=== PATIENT | female | born 1960 | race African-American/Black ===

== ENCOUNTER 2017-02-25 13:38 | Inpatient (IN) | payer MEDICAID ==
[~2017-02-25] VITALS: Ht 167.6 cm; Wt 49.0 kg
[~2017-02-25 13:38] MED LIST: ALBU90AE IH; CARI350T PO; GUAI600T PO; HYDR-523 PO; RISP0.5T PO; ZOLP6.252 PO
[2017-02-25] MEDS ORDERED: IPRATROPIUM BROMIDE (0.02%) 0.5MG/2.5ML NEB HHN STA (14:33)
[2017-02-25] MEDS ORDERED: METHYLPREDNISOLONE SOD SUCC 125 MG/2 ML VIAL IV STA (14:33)
[2017-02-25] MEDS ORDERED: ALBUTEROL (0.083%) 2.5MG/3ML NEB HHN STA (14:33)
[2017-02-25] MEDS ORDERED: MAGNESIUM 2 G PREMIX 50 ML IV ONE (14:45)
[2017-02-25] MEDS ORDERED: HYDROCODONE/ACETAMINOPHEN 5/325MG TABLET PO ONE (14:45)
[2017-02-25 14:50] LABS: BASOPHILS % 1.7 % (0.0-2.0); EOSINOPHILS % 1.3 % (0.0-5.0); HEMATOCRIT. 29.3 % (36.0-48.0); HEMOGLOBIN. 8.9 g/dL (12.0-16.0); LYMPHOCYTES % 28.4 % (20.0-50.0); MEAN CORPUSCULAR HEMOGLOBIN 25.2 pg (28.0-32.0); MEAN CORPUSCULAR HGB CONC 30.3 g/dL (31.0-37.0); MEAN PLATELET VOLUME 6.2 fl (7.4-10.4); MONOCYTES % 7.4 % (2.0-8.0); NEUTROPHILS % 61.2 % (40.0-76.0); PLATELET 557 x1000/uL (130-400); RED BLOOD CELL COUNT 3.53 mill/uL (4.2-5.4); RED CELL DISTRIBUTION WIDTH 17.4 % (11.6-14.6); WHITE BLOOD COUNT 6.2 x1000/uL (4.5-11.0)
[2017-02-25 14:58] LABS: CHLORIDE 107 mEq/L (98-107); INDEX HEMOLYSI 1 (1-3); INDEX ICTERIC 1 (1-4); INDEX LIPEMIC 1 (1-3); PROTHROMBIN TIME 10.7 sec
[2017-02-25] MEDS ORDERED: IPRATROPIUM/ALBUTEROL 0.5-3(2.5)MG/3ML NEB ONE (15:00)
[2017-02-25 15:08] LABS: ALBUMIN 3.2 g/dL (3.4-5.0); ANION GAP 8; CALCIUM 9.1 mg/dL (8.5-10.1); CARBON DIOXIDE 30 mEq/L (21-32); LIPASE 73 IU/L (73-393); UREA NITROGEN BLOOD 7 mg/dL (7-21); eGFR > 60 mL/min (>60)
[2017-02-25 15:09] LABS: NT PRO B-TYPE NATRIURETIC PEP 83 pg/mL (5-125); TROPONIN I < 0.02 ng/mL (0.00-0.04)
[2017-02-25 15:14] LABS: ALANINE AMINOTRANSFERASE 11 IU/L (13-61)
[2017-02-25] MEDS ORDERED: DIPHENHYDRAMINE 25MG CAPSULE PO ONE (16:15)
[2017-02-25 16:16] LABS: *AMPHETAMINES SCREEN URINE NEGATIVE (NEGATIVE); *BARBITURATES SCREEN URINE NEGATIVE (NEGATIVE); *BENZODIAZEPINES SCREEN URINE NEGATIVE (NEGATIVE); *COCAINE SCREEN URINE PRESUMTIVE POSITIVE (NEGATIVE); CANNABINOID URINE SCREEN NEGATIVE (NEGATIVE); ECSTASY MDMA SCREEN URINE NEGATIVE (NEGATIVE); METHADONE URINE SCREEN NEGATIVE (NEGATIVE); OPIATES URINE SCREEN PRESUMTIVE POSITIVE (NEGATIVE); PHENCYCLIDINE URINE SCREEN NEGATIVE (NEGATIVE)
[2017-02-25] MEDS: HYDROCODONE/ACETAMINOPHEN 5/325MG TABLET PO PRN ×2 (18:58→23:11)
[2017-02-25] MEDS ORDERED: ACETAMINOPHEN 325MG TABLET PO PRN (20:45)
[2017-02-25] MEDS ORDERED: GUAIFENESIN 200MG/10ML SUGAR FREE UDC PO PRN (20:45)
[2017-02-25] MEDS ORDERED: CLONIDINE 0.1MG TABLET PO PRN (20:45)
[2017-02-25] MEDS ORDERED: IPRATROPIUM/ALBUTEROL 0.5-3(2.5)MG/3ML NEB INH PRN (20:45)
[2017-02-25] MEDS ORDERED: MAGNESIUM/ALUMINUM HYDROXIDE/SIMETHICONE 30ML UDC PO PRN (20:45)
[2017-02-25] MEDS ORDERED: DOCUSATE SODIUM 100MG CAPSULE PO PRN (20:45)
[2017-02-25] MEDS ORDERED: HYDROCODONE/ACETAMINOPHEN 5/325MG TABLET PO PRN (20:45)
[2017-02-25] MEDS ORDERED: ONDANSETRON HCL 4MG/2ML VIAL IV PRN (20:45)
[2017-02-25 21:00] VITALS: BP 119/95
[2017-02-25 21:30] VITALS: BP 111/78
[2017-02-25] MEDS ORDERED: CARISOPRODOL 350 MG TABLET PO PRN (21:30)
[2017-02-25] MEDS ORDERED: MEDICATION NOT ON FORMULARY EA (Albuterol Sulfate (Proair Respiclick) 90 MCG) IH PRN (21:30)
[2017-02-25] MEDS: METHYLPREDNISOLONE SOD SUCC 125 MG/2 ML VIAL IV SCH (21:46)
[2017-02-25] MEDS: ZOLPIDEM TARTRATE 5MG TABLET PO PRN (21:46)
[2017-02-25] MEDS: ENOXAPARIN 40MG/0.4ML SYR SUBCUT SCH (21:47)
[2017-02-25] MEDS ORDERED: FERROUS SULFATE 325MG TABLET PO SCH (22:00)
[2017-02-25] MEDS ORDERED: RISPERIDONE 0.5MG TABLET PO PRN (22:30)
[2017-02-25 23:12] LABS: ANION GAP 10; CARBON DIOXIDE 30 mEq/L (21-32); CHLORIDE 105 mEq/L (98-107); CREATINE KINASE 153 IU/L (26-192); CREATINE KINASE MB FRACTION 2.2 ng/mL (0.5-3.6); INDEX HEMOLYSI 1 (1-3); INDEX ICTERIC 1 (1-4); INDEX LIPEMIC 1 (1-3); MAGNESIUM 2.1 mg/dL (1.8-2.4); TROPONIN I < 0.02 ng/mL (0.00-0.04); UREA NITROGEN BLOOD 11 mg/dL (7-21); eGFR > 60 mL/min (>60)
[2017-02-26] VITALS: BP 120/81
[2017-02-26] MEDS: BUDESONIDE 0.5MG/2ML NEB HHN SCH ×3 (00:49→20:26)
[2017-02-26] MEDS: ALBUTEROL (0.083%) 2.5MG/3ML NEB HHN PRN ×2 (00:49→08:24)
[2017-02-26] MEDS: HYDROCODONE/ACETAMINOPHEN 5/325MG TABLET PO PRN ×6 (03:23→23:22)
[2017-02-26] MEDS: METHYLPREDNISOLONE SOD SUCC 125 MG/2 ML VIAL IV SCH ×4 (03:27→20:55)
[2017-02-26 04:00] VITALS: BP 109/84
[2017-02-26] MEDS ORDERED: PNEUMOCOCCAL 23-VAL P-SAC VAC 0.5 ML IM ONE (05:30)
[2017-02-26 06:24] LABS: CARBON DIOXIDE 28 mEq/L (21-32); CHLORIDE 105 mEq/L (98-107); HDL CHOLESTEROL 79 mg/dL (40-59); INDEX HEMOLYSI 1 (1-3); INDEX ICTERIC 1 (1-4); INDEX LIPEMIC 1 (1-3); LDL CHOLESTEROL 75 mg/dL (5-100); TRIGLYCERIDE 74 mg/dL (0-150); UREA NITROGEN BLOOD 11 mg/dL (7-21); eGFR > 60 mL/min (>60)
[2017-02-26 06:27] LABS: CREATINE KINASE 146 IU/L (26-192); INDEX HEMOLYSI 1 (1-3)
[2017-02-26 06:28] LABS: CREATINE KINASE MB FRACTION 2.6 ng/mL (0.5-3.6); TROPONIN I < 0.02 ng/mL (0.00-0.04)
[2017-02-26 06:30] LABS: ALANINE AMINOTRANSFERASE 14 IU/L (13-61); ALBUMIN 3.2 g/dL (3.4-5.0); ANION GAP 11; CALCIUM 8.9 mg/dL (8.5-10.1)
[2017-02-26 08:00] VITALS: BP 120/88
[2017-02-26] MEDS ORDERED: DIPHENHYDRAMINE 25MG CAPSULE PO PRN (08:45)
[2017-02-26] MEDS ORDERED: IPRATROPIUM/ALBUTEROL 0.5-3(2.5)MG/3ML NEB INH PRN (10:45)
[2017-02-26] MEDS: IPRATROPIUM/ALBUTEROL 0.5-3(2.5)MG/3ML NEB HHN SCH ×3 (11:51→20:26)
[2017-02-26 12:00] VITALS: BP 117/75
[2017-02-26] MEDS: DIPHENHYDRAMINE 50MG/ML VIAL IV PRN ×2 (12:23→18:24)
[2017-02-26] MEDS: CARISOPRODOL 350 MG TABLET PO PRN (13:33)
[2017-02-26 16:00] VITALS: BP 108/80
[2017-02-26] MEDS ORDERED: ZOLPIDEM TARTRATE 6.25 MG PO SCH (17:00)
[2017-02-26 18:35] LABS: CLARITY URINE CLOUDY (CLEAR); COLOR URINE YELLOW (YELLOW); GLUCOSE URINE 2+ (NEGATIVE); KETONES URINE NEGATIVE (NEGATIVE); LEUKOCYTE ESTERASE URINE 3+ (NEGATIVE); NITRITE URINE NEGATIVE (NEGATIVE); OCCULT BLOOD URINE 3+ (NEGATIVE); PH URINE 7.5 (4.5-8.0); PROTEIN URINE NEGATIVE (NEGATIVE)
[2017-02-26 19:14] LABS: BACTERIA URINE 3+; RBC URINE 15-25 /hpf (0-2); SQUAMOUS EPITHELIAL CELL URINE FEW /lpf (RARE/1+); WBC URINE 50-100 /hpf (0-2)
[2017-02-26 20:00] VITALS: BP 105/79
[2017-02-26] MEDS: ENOXAPARIN 40MG/0.4ML SYR SUBCUT SCH (20:54)
[2017-02-26] MEDS: ZOLPIDEM TARTRATE 5MG TABLET PO PRN (20:54)
[2017-02-26] MEDS ORDERED: CARISOPRODOL 350 MG TABLET PO PRN (21:30)
[2017-02-27] VITALS: BP 100/76
[2017-02-27] MEDS: DIPHENHYDRAMINE 50MG/ML VIAL IV PRN ×5 (00:10→23:29)
[2017-02-27] MEDS: IPRATROPIUM/ALBUTEROL 0.5-3(2.5)MG/3ML NEB HHN SCH ×7 (00:13→23:50)
[2017-02-27] MEDS: CARISOPRODOL 350 MG TABLET PO PRN ×2 (01:17→13:16)
[2017-02-27] MEDS: METHYLPREDNISOLONE SOD SUCC 125 MG/2 ML VIAL IV SCH ×4 (03:27→23:29)
[2017-02-27] MEDS: HYDROCODONE/ACETAMINOPHEN 5/325MG TABLET PO PRN ×6 (03:29→23:30)
[2017-02-27 04:00] VITALS: BP 103/75
[2017-02-27 06:06] LABS: BASOPHILS % 0.4 % (0.0-2.0); HEMATOCRIT. 27.8 % (36.0-48.0); HEMOGLOBIN. 8.3 g/dL (12.0-16.0); LYMPHOCYTES % 13.5 % (20.0-50.0); MEAN CORPUSCULAR VOLUME 83.2 fL (81.0-99.0); MEAN PLATELET VOLUME 6.9 fl (7.4-10.4); MONOCYTES % 6.1 % (2.0-8.0); PLATELET 516 x1000/uL (130-400); RED BLOOD CELL COUNT 3.34 mill/uL (4.2-5.4); RED CELL DISTRIBUTION WIDTH 17.8 % (11.6-14.6); WHITE BLOOD COUNT 6.4 x1000/uL (4.5-11.0)
[2017-02-27 06:34] LABS: CHLORIDE 101 mEq/L (98-107); INDEX HEMOLYSI 1 (1-3); INDEX ICTERIC 1 (1-4); INDEX LIPEMIC 1 (1-3)
[2017-02-27 06:40] LABS: ANION GAP 12; CALCIUM 9.5 mg/dL (8.5-10.1); CARBON DIOXIDE 30 mEq/L (21-32); UREA NITROGEN BLOOD 11 mg/dL (7-21); eGFR > 60 mL/min (>60)
[2017-02-27 08:00] VITALS: BP 95/71
[2017-02-27] MEDS: BUDESONIDE 0.5MG/2ML NEB HHN SCH ×2 (08:46→20:27)
[2017-02-27 12:00] VITALS: BP 114/82
[2017-02-27 16:00] VITALS: BP 93/56
[2017-02-27 20:00] VITALS: BP 103/64
[2017-02-27] MEDS: ENOXAPARIN 40MG/0.4ML SYR SUBCUT SCH (20:38)
[2017-02-28 00:01] VITALS: BP 101/64
[2017-02-28] MEDS: CARISOPRODOL 350 MG TABLET PO PRN (01:15)
[2017-02-28] MEDS: HYDROCODONE/ACETAMINOPHEN 5/325MG TABLET PO PRN ×3 (03:31→11:20)
[2017-02-28] MEDS: IPRATROPIUM/ALBUTEROL 0.5-3(2.5)MG/3ML NEB HHN SCH ×3 (03:39→11:34)
[2017-02-28 04:00] VITALS: BP 103/69
[2017-02-28] MEDS: DIPHENHYDRAMINE 50MG/ML VIAL IV PRN ×2 (05:36→11:20)
[2017-02-28] MEDS: METHYLPREDNISOLONE SOD SUCC 125 MG/2 ML VIAL IV SCH (05:36)
[2017-02-28 06:02] LABS: HEMOGLOBIN. 8.3 g/dL (12.0-16.0); MEAN CORPUSCULAR HEMOGLOBIN 25.6 pg (28.0-32.0); MEAN CORPUSCULAR HGB CONC 30.8 g/dL (31.0-37.0); MEAN CORPUSCULAR VOLUME 83.1 fL (81.0-99.0); MEAN PLATELET VOLUME 7.4 fl (7.4-10.4); PLATELET 442 x1000/uL (130-400); RED BLOOD CELL COUNT 3.25 mill/uL (4.2-5.4); RED CELL DISTRIBUTION WIDTH 17.4 % (11.6-14.6); WHITE BLOOD COUNT 9.2 x1000/uL (4.5-11.0)
[2017-02-28 06:52] LABS: DIFFERENTIAL COMMENT 1
[2017-02-28 07:09] LABS: ANION GAP 15; CALCIUM 9.1 mg/dL (8.5-10.1); CARBON DIOXIDE 25 mEq/L (21-32); CHLORIDE 103 mEq/L (98-107); INDEX HEMOLYSI 3 (1-3); INDEX ICTERIC 1 (1-4); INDEX LIPEMIC 1 (1-3); UREA NITROGEN BLOOD 9 mg/dL (7-21)
[2017-02-28 07:11] LABS: eGFR > 60 mL/min (>60)
[2017-02-28] MEDS: BUDESONIDE 0.5MG/2ML NEB HHN SCH (07:27)
[2017-02-28 08:02] VITALS: BP 112/76
[2017-02-28 12:00] VITALS: BP 118/86
[2017-02-28 12:33] VITALS: BP 118/86
[2017-02-28 12:33] LABS: ANISOCYTOSIS 1+; PLATELET ESTIMATE INCREASED
[2017-02-28 12:34] LABS: HYPOCHROMASIA 1+; TARGET CELLS 2+
[2017-02-28] MEDS ORDERED: METHYLPREDNISOLONE SOD SUCC 40 MG/ML VIAL IV SCH (14:00)
== END 2017-02-28 12:45 | disposition home or self-care (01) | DRG 140 ==
LOC: ER 15:47 → 7WST 15:55
PROVIDERS: ADMIT Internal Medicine; ATTEND Internal Medicine
DX: J44.1 Chronic obstructive pulmonary disease with (acute) exacerbation (principal); J96.00 Acute respiratory failure, unspecified whether with hypoxia or hypercapnia; N39.0 Urinary tract infection, site not specified; D64.9 Anemia, unspecified; F14.10 Cocaine abuse, uncomplicated; W10.9XXA Fall (on) (from) unspecified stairs and steps, initial encounter; N93.9 Abnormal uterine and vaginal bleeding, unspecified; M54.30 Sciatica, unspecified side; E44.1 Mild protein-calorie malnutrition; Z68.1 Body mass index [BMI] 19.9 or less, adult; Z82.49 Family history of ischemic heart disease and other diseases of the circulatory system; Z87.891 Personal history of nicotine dependence; Z99.81 Dependence on supplemental oxygen; Y93.89 Activity, other specified; Y92.89 Other specified places as the place of occurrence of the external cause; Y99.8 Other external cause status; Z88.6 Allergy status to analgesic agent; Z88.5 Allergy status to narcotic agent; Z88.0 Allergy status to penicillin; Z88.8 Allergy status to other drugs, medicaments and biological substances; Z79.899 Other long term (current) drug therapy
CPT/HCPCS: 36415; 71010; 72170; 80048; 80053; 80061; 80305; 81001; 82550; 82553; 83605; 83690; 83735; 83880; 84484; 85025; 85610; 87040; 87086; 93005; 94640; 94664; 96374; 96375; 97162; 99285; J1200; J1650; J2930; J3475; J7611; J7620; J7626; Q0163

== ENCOUNTER 2017-06-26 08:52 | Inpatient (IN) | payer MEDICAID ==
[~2017-06-26] VITALS: Ht 167.6 cm; Wt 47.6 kg
[~2017-06-26 08:52] MED LIST changes: -GUAI600T PO; +GUAI600T44 PO; +LEVO500T2 PO; +METH4TAB17 PO; -RISP0.5T PO; +RISP05 PO; +TIOT18CA3 INH
[2017-06-26] MEDS ORDERED: PREDNISONE 20MG TABLET PO STA (11:14)
[2017-06-26] MEDS ORDERED: SODIUM CHLORIDE 0.9% 1,000 ML IV ONE (11:14)
[2017-06-26] MEDS ORDERED: HYDROCODONE/ACETAMINOPHEN 5/325MG TABLET PO STA (11:14)
[2017-06-26 11:48] LABS: BASOPHILS % 1.2 % (0.0-2.0); EOSINOPHILS % 0.2 % (0.0-5.0); HEMATOCRIT. 32.2 % (36.0-48.0); HEMOGLOBIN. 9.8 g/dL (12.0-16.0); LYMPHOCYTES % 30.5 % (20.0-50.0); MEAN CORPUSCULAR HEMOGLOBIN 25.4 pg (28.0-32.0); MEAN PLATELET VOLUME 6.7 fl (7.4-10.4); MONOCYTES % 7.8 % (2.0-8.0); NEUTROPHILS % 60.3 % (40.0-76.0); PLATELET 477 x1000/uL (130-400); RED BLOOD CELL COUNT 3.83 mill/uL (4.2-5.4); RED CELL DISTRIBUTION WIDTH 18.8 % (11.6-14.6)
[2017-06-26 11:49] LABS: PROTHROMBIN TIME 10.9 sec (9.4-11.6)
[2017-06-26] MEDS ORDERED: IPRATROPIUM BROMIDE (0.02%) 0.5MG/2.5ML NEB HHN STA (11:57)
[2017-06-26] MEDS ORDERED: ALBUTEROL (0.083%) 2.5MG/3ML NEB HHN STA (11:57)
[2017-06-26 11:59] LABS: CARBON DIOXIDE 33 mEq/L (21-32); CHLORIDE 101 mEq/L (98-107); TROPONIN I < 0.02 ng/mL (0.00-0.04)
[2017-06-26] MEDS ORDERED: DIPHENHYDRAMINE 50MG CAPSULE PO ONE (13:30)
[2017-06-26] MEDS ORDERED: LEVOFLOXACIN 750MG PREMIX 150 ML IV ONE (13:45)
[2017-06-26 16:00] VITALS: BP 139/89
[2017-06-26] MEDS ORDERED: CLONIDINE 0.1MG TABLET PO PRN (16:45)
[2017-06-26] MEDS ORDERED: IPRATROPIUM/ALBUTEROL 0.5-3(2.5)MG/3ML NEB INH PRN (16:45)
[2017-06-26] MEDS ORDERED: ACETAMINOPHEN 325MG TABLET PO PRN (16:45)
[2017-06-26] MEDS ORDERED: ONDANSETRON HCL 4MG/2ML VIAL IV PRN (16:45)
[2017-06-26] MEDS ORDERED: HYDROCODONE/ACETAMINOPHEN 5/325MG TABLET PO SCH (17:00)
[2017-06-26] MEDS ORDERED: METHYLPREDNISOLONE 4MG TABLET PO SCH (17:00)
[2017-06-26] MEDS ORDERED: ZOLPIDEM TARTRATE 6.25 MG PO SCH (17:00)
[2017-06-26] MEDS ORDERED: RISPERIDONE 0.5MG TABLET PO PRN (17:00)
[2017-06-26] MEDS ORDERED: MEDICATION NOT ON FORMULARY EA (Albuterol Sulfate (Proair Respiclick) 90 MCG) IH PRN (17:00)
[2017-06-26] MEDS ORDERED: CARISOPRODOL 350 MG TABLET PO PRN (17:02)
[2017-06-26] MEDS: HYDROCODONE/ACETAMINOPHEN 5/325MG TABLET PO PRN ×2 (17:09→20:57)
[2017-06-26 17:21] VITALS: BP 139/89
[2017-06-26] MEDS: DIPHENHYDRAMINE 50MG/ML VIAL IV PRN ×2 (17:52→21:54)
[2017-06-26] MEDS: METHYLPREDNISOLONE SOD SUCC 40 MG/ML VIAL IV SCH (17:52)
[2017-06-26 20:00] VITALS: BP 114/67
[2017-06-26] MEDS: IPRATROPIUM/ALBUTEROL 0.5-3(2.5)MG/3ML NEB INH SCH (20:42)
[2017-06-26] MEDS: GUAIFENESIN 600MG ER TABLET PO SCH (20:56)
[2017-06-27] VITALS: BP 119/78
[2017-06-27] MEDS: ZOLPIDEM TARTRATE 5MG TABLET PO PRN ×2 (00:25→23:09)
[2017-06-27] MEDS: METHYLPREDNISOLONE SOD SUCC 40 MG/ML VIAL IV SCH ×3 (00:25→16:24)
[2017-06-27] MEDS: HYDROCODONE/ACETAMINOPHEN 5/325MG TABLET PO PRN ×5 (00:59→17:19)
[2017-06-27] MEDS: DIPHENHYDRAMINE 50MG/ML VIAL IV PRN ×6 (02:23→21:25)
[2017-06-27 04:00] VITALS: BP 118/67
[2017-06-27] MEDS: IPRATROPIUM/ALBUTEROL 0.5-3(2.5)MG/3ML NEB INH SCH ×5 (04:39→20:09)
[2017-06-27 06:19] LABS: HEMATOCRIT. 28.9 % (36.0-48.0); HEMOGLOBIN. 8.7 g/dL (12.0-16.0); MEAN CORPUSCULAR HEMOGLOBIN 25.3 pg (28.0-32.0); MEAN CORPUSCULAR VOLUME 83.8 fL (81.0-99.0); MEAN PLATELET VOLUME 6.8 fl (7.4-10.4); PLATELET 434 x1000/uL (130-400); RED BLOOD CELL COUNT 3.45 mill/uL (4.2-5.4); RED CELL DISTRIBUTION WIDTH 18.2 % (11.6-14.6)
[2017-06-27 06:33] LABS: CARBON DIOXIDE 29 mEq/L (21-32); CHLORIDE 101 mEq/L (98-107); HDL CHOLESTEROL 82 mg/dL (40-59); LDL CHOLESTEROL 85 mg/dL (5-100); TROPONIN I < 0.02 ng/mL (0.00-0.04)
[2017-06-27 08:00] VITALS: BP 117/74
[2017-06-27] MEDS ORDERED: MEDICATION NOT ON FORMULARY EA (Tiotropium Bromide (Spiriva) 1 CAP) INH SCH (09:00)
[2017-06-27] MEDS: GUAIFENESIN 600MG ER TABLET PO SCH ×2 (09:08→21:24)
[2017-06-27 12:00] VITALS: BP 114/69
[2017-06-27] MEDS: CARISOPRODOL 350 MG TABLET PO PRN ×2 (12:21→19:53)
[2017-06-27] MEDS: LEVOFLOXACIN 500MG PREMIX 100 ML IV SCH (15:26)
[2017-06-27 16:00] VITALS: BP 107/54
[2017-06-27 18:03] LABS: *AMPHETAMINES SCREEN URINE NEGATIVE (NEGATIVE); *BARBITURATES SCREEN URINE NEGATIVE (NEGATIVE); *BENZODIAZEPINES SCREEN URINE NEGATIVE (NEGATIVE); *COCAINE SCREEN URINE NEGATIVE (NEGATIVE); CANNABINOID URINE SCREEN NEGATIVE (NEGATIVE); METHADONE URINE SCREEN NEGATIVE (NEGATIVE); OPIATES URINE SCREEN PRESUMTIVE POSITIVE (NEGATIVE); PHENCYCLIDINE URINE SCREEN NEGATIVE (NEGATIVE)
[2017-06-27 20:00] VITALS: BP 102/60
[2017-06-27 20:41] LABS: PLATELET ESTIMATE INCREASED
[2017-06-27] MEDS ORDERED: GUAIFENESIN 600MG ER TABLET PO SCH (21:00)
[2017-06-27] MEDS: HYDROCODONE/ACETAMINOPHEN 10/325MG TABLET PO PRN (21:25)
[2017-06-28] VITALS: BP 102/62
[2017-06-28] MEDS: IPRATROPIUM/ALBUTEROL 0.5-3(2.5)MG/3ML NEB INH SCH ×6 (00:32→21:18)
[2017-06-28] MEDS: DIPHENHYDRAMINE 50MG/ML VIAL IV PRN ×6 (01:29→21:33)
[2017-06-28] MEDS: METHYLPREDNISOLONE SOD SUCC 40 MG/ML VIAL IV SCH ×3 (01:29→17:33)
[2017-06-28] MEDS: HYDROCODONE/ACETAMINOPHEN 10/325MG TABLET PO PRN ×4 (03:45→21:33)
[2017-06-28 04:00] VITALS: BP 114/93
[2017-06-28 06:53] LABS: HEMATOCRIT. 28.6 % (36.0-48.0); HEMOGLOBIN. 8.6 g/dL (12.0-16.0); MEAN PLATELET VOLUME 6.8 fl (7.4-10.4); PLATELET 452 x1000/uL (130-400); RED BLOOD CELL COUNT 3.45 mill/uL (4.2-5.4); RED CELL DISTRIBUTION WIDTH 18.4 % (11.6-14.6)
[2017-06-28 07:13] LABS: CARBON DIOXIDE 31 mEq/L (21-32); CHLORIDE 100 mEq/L (98-107)
[2017-06-28 08:00] VITALS: BP 108/63
[2017-06-28] MEDS: GUAIFENESIN 600MG ER TABLET PO SCH ×2 (09:00→20:43)
[2017-06-28 12:30] VITALS: BP 139/82
[2017-06-28] MEDS: CARISOPRODOL 350 MG TABLET PO PRN ×2 (12:32→20:42)
[2017-06-28] MEDS: LEVOFLOXACIN 500MG PREMIX 100 ML IV SCH (15:35)
[2017-06-28 16:00] VITALS: BP 102/62
[2017-06-28] MEDS: BUDESONIDE 0.5MG/2ML NEB HHN SCH ×2 (16:40→21:17)
[2017-06-28 19:49] LABS: PLATELET ESTIMATE INCREASED
[2017-06-28 20:00] VITALS: BP 117/68
[2017-06-29] VITALS: BP 97/58
[2017-06-29] MEDS: METHYLPREDNISOLONE SOD SUCC 40 MG/ML VIAL IV SCH ×2 (00:28→08:37)
[2017-06-29] MEDS: ZOLPIDEM TARTRATE 5MG TABLET PO PRN (00:28)
[2017-06-29] MEDS: IPRATROPIUM/ALBUTEROL 0.5-3(2.5)MG/3ML NEB INH SCH ×3 (00:55→12:46)
[2017-06-29] MEDS: DIPHENHYDRAMINE 50MG/ML VIAL IV PRN ×3 (02:02→09:57)
[2017-06-29] MEDS: HYDROCODONE/ACETAMINOPHEN 10/325MG TABLET PO PRN ×3 (03:37→13:06)
[2017-06-29 04:00] VITALS: BP 101/60
[2017-06-29 08:09] LABS: BASOPHILS % 0.1 % (0.0-2.0); HEMATOCRIT. 29.5 % (36.0-48.0); HEMOGLOBIN. 9.1 g/dL (12.0-16.0); MEAN CORPUSCULAR HEMOGLOBIN 25.7 pg (28.0-32.0); MEAN CORPUSCULAR VOLUME 83.8 fL (81.0-99.0); MEAN PLATELET VOLUME 6.9 fl (7.4-10.4); MONOCYTES % 3.6 % (2.0-8.0); NEUTROPHILS % 89.3 % (40.0-76.0); PLATELET 504 x1000/uL (130-400); RED BLOOD CELL COUNT 3.52 mill/uL (4.2-5.4)
[2017-06-29 08:10] VITALS: BP 121/73
[2017-06-29 08:11] LABS: CARBON DIOXIDE 30 mEq/L (21-32); CHLORIDE 98 mEq/L (98-107)
[2017-06-29] MEDS: GUAIFENESIN 600MG ER TABLET PO SCH (08:39)
[2017-06-29 12:00] VITALS: BP 120/71
[2017-06-29 13:26] VITALS: BP 120/71
[2017-06-29] MEDS ORDERED: PREDNISONE 20MG TABLET PO SCH (17:00)
== END 2017-06-29 14:10 | disposition home or self-care (01) | DRG 133 ==
LOC: ER 10:02 → 7WST 13:48 → EDBEDREQ 13:53 → ENRESERV 14:12 → 7WST 16:38
PROVIDERS: ADMIT Internal Medicine; ATTEND Internal Medicine
DX: J96.00 Acute respiratory failure, unspecified whether with hypoxia or hypercapnia (principal); R65.10 Systemic inflammatory response syndrome (SIRS) of non-infectious origin without acute organ dysfunction; E44.0 Moderate protein-calorie malnutrition; J44.1 Chronic obstructive pulmonary disease with (acute) exacerbation; R56.9 Unspecified convulsions; Z99.81 Dependence on supplemental oxygen; I10 Essential (primary) hypertension; D64.9 Anemia, unspecified; D72.829 Elevated white blood cell count, unspecified; R07.2 Precordial pain; G89.4 Chronic pain syndrome; J45.909 Unspecified asthma, uncomplicated; T38.0X5A Adverse effect of glucocorticoids and synthetic analogues, initial encounter; R73.9 Hyperglycemia, unspecified; F41.9 Anxiety disorder, unspecified; F17.210 Nicotine dependence, cigarettes, uncomplicated; M54.32 Sciatica, left side; R35.1 Nocturia; G43.909 Migraine, unspecified, not intractable, without status migrainosus; Z88.0 Allergy status to penicillin; Z82.49 Family history of ischemic heart disease and other diseases of the circulatory system; Y92.89 Other specified places as the place of occurrence of the external cause; Z79.899 Other long term (current) drug therapy; Z88.8 Allergy status to other drugs, medicaments and biological substances
CPT/HCPCS: 36415; 71010; 73030; 80048; 80053; 80061; 80305; 83036; 83880; 84484; 85025; 85610; 87040; 87086; 93005; 93306; 93970; 94640; 94664; 96361; 96365; 97162; 99285; J1200; J1956; J2920; J7030; J7050; J7512; J7611; J7620; J7626; Q0163

== ENCOUNTER 2017-07-26 07:31 | Inpatient (IN) | payer MEDICAID ==
[~2017-07-26] VITALS: Ht 167.6 cm; Wt 48.5 kg
[2017-07-26] MEDS ORDERED: DIPH25CA83 PO (07:39)
[2017-07-26] MEDS ORDERED: METHYLPREDNISOLONE SOD SUCC 125 MG/2 ML VIAL IV STA (07:52)
[2017-07-26] MEDS ORDERED: IPRATROPIUM BROMIDE (0.02%) 0.5MG/2.5ML NEB HHN STA (07:52)
[2017-07-26] MEDS: ALBUTEROL (0.083%) 2.5MG/3ML NEB HHN SCH ×3 (08:05→09:00)
[2017-07-26 08:29] LABS: BASOPHILS % 0.6 % (0.0-2.0); EOSINOPHILS % 0.2 % (0.0-5.0); HEMOGLOBIN. 9.4 g/dL (12.0-16.0); LYMPHOCYTES % 9.7 % (20.0-50.0); MEAN CORPUSCULAR HEMOGLOBIN 25.1 pg (28.0-32.0); MEAN CORPUSCULAR VOLUME 82.6 fL (81.0-99.0); MEAN PLATELET VOLUME 6.3 fl (7.4-10.4); MONOCYTES % 7.5 % (2.0-8.0); PLATELET 722 x1000/uL (130-400); RED BLOOD CELL COUNT 3.75 mill/uL (4.2-5.4); RED CELL DISTRIBUTION WIDTH 17.8 % (11.6-14.6)
[2017-07-26 08:37] LABS: INR 1.1; PROTHROMBIN TIME 11.6 sec (9.4-11.6)
[2017-07-26 08:44] LABS: CARBON DIOXIDE 30 mEq/L (21-32); CHLORIDE 104 mEq/L (98-107)
[2017-07-26] MEDS ORDERED: ACETAMINOPHEN 325MG TABLET PO ONE (09:30)
[2017-07-26] MEDS ORDERED: MAGNESIUM 1 G PREMIX 100 ML IV ONE (11:45)
[2017-07-26] MEDS ORDERED: FENTANYL CITRATE/PF 50MCG/ML 2ML VIAL IV ONE (12:00)
[2017-07-26] MEDS ORDERED: ACETAMINOPHEN 650MG/20.3ML UDC PO ONE (12:15)
[2017-07-26] MEDS ORDERED: LEVOFLOXACIN 750MG PREMIX 150 ML IV ONE (12:15)
[2017-07-26] MEDS ORDERED: IPRATROPIUM/ALBUTEROL 0.5-3(2.5)MG/3ML NEB INH PRN (14:30)
[2017-07-26] MEDS ORDERED: ACETAMINOPHEN 325MG TABLET PO PRN (14:30)
[2017-07-26] MEDS ORDERED: CLONIDINE 0.1MG TABLET PO PRN (14:30)
[2017-07-26] MEDS ORDERED: ONDANSETRON HCL 4MG/2ML VIAL IV PRN (14:30)
[2017-07-26] MEDS: DIPHENHYDRAMINE 50MG/ML VIAL IV PRN ×3 (15:40→23:31)
[2017-07-26] MEDS: LORAZEPAM 2MG/ML CPJ IV PRN ×3 (15:40→23:31)
[2017-07-26] MEDS: HYDROCODONE/ACETAMINOPHEN 5/325MG TABLET PO PRN ×2 (18:26→22:31)
[2017-07-26 19:04] VITALS: BP 117/81
[2017-07-26 19:30] VITALS: BP 112/77
[2017-07-26] MEDS: METHYLPREDNISOLONE SOD SUCC 40 MG/ML VIAL IV SCH ×2 (19:37→22:00)
[2017-07-27] VITALS (7 sets, daily range): BP systolic 101–128; BP diastolic 60–78
[2017-07-27] MEDS: DIPHENHYDRAMINE 50MG/ML VIAL IV PRN ×6 (03:35→23:34)
[2017-07-27] MEDS: LORAZEPAM 2MG/ML CPJ IV PRN ×6 (03:35→23:34)
[2017-07-27] MEDS: HYDROCODONE/ACETAMINOPHEN 5/325MG TABLET PO PRN ×2 (03:37→07:46)
[2017-07-27] MEDS: IPRATROPIUM/ALBUTEROL 0.5-3(2.5)MG/3ML NEB INH SCH ×5 (04:49→20:48)
[2017-07-27] MEDS: METHYLPREDNISOLONE SOD SUCC 40 MG/ML VIAL IV SCH ×3 (06:05→21:09)
[2017-07-27 06:45] LABS: HEMATOCRIT. 27.3 % (36.0-48.0); HEMOGLOBIN. 8.4 g/dL (12.0-16.0); LYMPHOCYTES % 10.2 % (20.0-50.0); MEAN CORPUSCULAR HEMOGLOBIN 25.2 pg (28.0-32.0); MEAN CORPUSCULAR VOLUME 81.5 fL (81.0-99.0); MEAN PLATELET VOLUME 6.6 fl (7.4-10.4); MONOCYTES % 7.9 % (2.0-8.0); NEUTROPHILS % 81.9 % (40.0-76.0); PLATELET 618 x1000/uL (130-400); RED BLOOD CELL COUNT 3.35 mill/uL (4.2-5.4); RED CELL DISTRIBUTION WIDTH 17.9 % (11.6-14.6)
[2017-07-27 08:12] LABS: CARBON DIOXIDE 26 mEq/L (21-32); CHLORIDE 103 mEq/L (98-107); HDL CHOLESTEROL 58 mg/dL (40-59); LDL CHOLESTEROL 97 mg/dL (5-100); TROPONIN I < 0.02 ng/mL (0.00-0.04)
[2017-07-27] MEDS: ENOXAPARIN 40MG/0.4ML SYR SUBCUT SCH (11:25)
[2017-07-27] MEDS: CARISOPRODOL 350 MG TABLET PO PRN ×2 (11:25→19:57)
[2017-07-27] MEDS: HYDROCODONE/ACETAMINOPHEN 10/325MG TABLET PO PRN ×3 (11:27→23:35)
[2017-07-27 14:22] LABS: T4 FREE 0.86 ng/dL (0.76-1.46)
[2017-07-27] MEDS ORDERED: GUAIFENESIN/CODEINE 100-10MG/5ML UDC PO PRN (14:45)
[2017-07-28] VITALS (10 sets, daily range): BP systolic 94–118; BP diastolic 54–85
[2017-07-28] MEDS: IPRATROPIUM/ALBUTEROL 0.5-3(2.5)MG/3ML NEB INH SCH ×6 (00:48→20:47)
[2017-07-28] MEDS: LORAZEPAM 2MG/ML CPJ IV PRN ×5 (04:33→21:39)
[2017-07-28] MEDS: DIPHENHYDRAMINE 50MG/ML VIAL IV PRN ×5 (04:33→21:39)
[2017-07-28] MEDS: HYDROCODONE/ACETAMINOPHEN 5/325MG TABLET PO PRN ×4 (04:33→17:39)
[2017-07-28] MEDS: METHYLPREDNISOLONE SOD SUCC 40 MG/ML VIAL IV SCH (05:23)
[2017-07-28 06:41] LABS: BASOPHILS % 0.4 % (0.0-2.0); HEMATOCRIT. 25.4 % (36.0-48.0); HEMOGLOBIN. 7.7 g/dL (12.0-16.0); LYMPHOCYTES % 19.5 % (20.0-50.0); MEAN CORPUSCULAR HEMOGLOBIN 24.7 pg (28.0-32.0); MEAN CORPUSCULAR VOLUME 81.3 fL (81.0-99.0); MEAN PLATELET VOLUME 6.6 fl (7.4-10.4); MONOCYTES % 12.7 % (2.0-8.0); NEUTROPHILS % 67.4 % (40.0-76.0); PLATELET 593 x1000/uL (130-400); RED BLOOD CELL COUNT 3.12 mill/uL (4.2-5.4); RED CELL DISTRIBUTION WIDTH 17.7 % (11.6-14.6)
[2017-07-28 07:07] LABS: CHLORIDE 104 mEq/L (98-107)
[2017-07-28 07:16] LABS: CARBON DIOXIDE 29 mEq/L (21-32); CREATINE KINASE 49 IU/L (26-192); CREATINE KINASE MB FRACTION 1.4 ng/mL (0.5-3.6); TROPONIN I < 0.02 ng/mL (0.00-0.04)
[2017-07-28] MEDS: ENOXAPARIN 40MG/0.4ML SYR SUBCUT SCH (08:53)
[2017-07-28] MEDS: CARISOPRODOL 350 MG TABLET PO PRN (11:10)
[2017-07-28] MEDS: MORPHINE SULFATE 2 MG/ML CPJ (NOT FOR IM USE) IV PRN ×2 (11:45→18:17)
[2017-07-28] MEDS: METFORMIN HCL 500MG TABLET PO SCH (18:17)
[2017-07-28] MEDS: HYDROCODONE/ACETAMINOPHEN 10/325MG TABLET PO PRN (20:37)
[2017-07-29] VITALS: BP 107/68
[2017-07-29] MEDS: MORPHINE SULFATE 2 MG/ML CPJ (NOT FOR IM USE) IV PRN ×3 (00:18→11:55)
[2017-07-29] MEDS: IPRATROPIUM/ALBUTEROL 0.5-3(2.5)MG/3ML NEB INH SCH ×3 (00:32→11:45)
[2017-07-29] MEDS: DIPHENHYDRAMINE 50MG/ML VIAL IV PRN ×3 (01:55→13:07)
[2017-07-29] MEDS: LORAZEPAM 2MG/ML CPJ IV PRN ×3 (01:55→10:14)
[2017-07-29 04:00] VITALS: BP 101/63
[2017-07-29 06:26] LABS: BASOPHILS % 0.5 % (0.0-2.0); EOSINOPHILS % 0.2 % (0.0-5.0); HEMATOCRIT. 29.9 % (36.0-48.0); HEMOGLOBIN. 9.1 g/dL (12.0-16.0); LYMPHOCYTES % 26.3 % (20.0-50.0); MEAN CORPUSCULAR HEMOGLOBIN 24.9 pg (28.0-32.0); MEAN CORPUSCULAR VOLUME 81.7 fL (81.0-99.0); MEAN PLATELET VOLUME 6.5 fl (7.4-10.4); MONOCYTES % 12.7 % (2.0-8.0); NEUTROPHILS % 60.3 % (40.0-76.0); PLATELET 527 x1000/uL (130-400); RED BLOOD CELL COUNT 3.67 mill/uL (4.2-5.4); RED CELL DISTRIBUTION WIDTH 17.2 % (11.6-14.6)
[2017-07-29 07:29] LABS: CARBON DIOXIDE 31 mEq/L (21-32); CHLORIDE 103 mEq/L (98-107)
[2017-07-29 07:43] LABS: INR 1.1; PROTHROMBIN TIME 10.9 sec (9.4-11.6)
[2017-07-29 08:00] VITALS: BP 107/64
[2017-07-29] MEDS ORDERED: FERROUS SULFATE 325MG TABLET PO SCH (08:10)
[2017-07-29] MEDS: METFORMIN HCL 500MG TABLET PO SCH (08:48)
[2017-07-29] MEDS: HYDROCODONE/ACETAMINOPHEN 10/325MG TABLET PO PRN (08:48)
[2017-07-29] MEDS: ENOXAPARIN 40MG/0.4ML SYR SUBCUT SCH ×3 (08:49→09:00)
[2017-07-29] MEDS ORDERED: METHYLPREDNISOLONE SOD SUCC 40 MG/ML VIAL IV SCH (09:00)
[2017-07-29 12:00] VITALS: BP 98/68
[2017-07-29] MEDS ORDERED: POTASSIUM CHLORIDE 20MEQ TABLET SR PO NR (12:45)
[2017-07-29 14:00] VITALS: BP 98/68
[2017-07-30] MEDS ORDERED: PREDNISONE 20MG TABLET PO SCH (09:00)
== END 2017-07-29 14:30 | disposition home or self-care (01) | DRG 133 ==
LOC: ER 07:49 → 7WST 12:02 → EDBEDREQTM 14:44 → EDBEDREQSVC 14:44 → ENRESERV 17:33
PROVIDERS: ADMIT Internal Medicine; ATTEND Internal Medicine
PROC: 30233N1 Transfusion of Nonautologous Red Blood Cells into Peripheral Vein, Percutaneous Approach (ICD-10-PCS; principal; 2017-07-28)
DX: J96.00 Acute respiratory failure, unspecified whether with hypoxia or hypercapnia (principal); I27.20 Pulmonary hypertension, unspecified; R65.10 Systemic inflammatory response syndrome (SIRS) of non-infectious origin without acute organ dysfunction; J44.1 Chronic obstructive pulmonary disease with (acute) exacerbation; Z99.81 Dependence on supplemental oxygen; Z79.899 Other long term (current) drug therapy; M54.30 Sciatica, unspecified side; I10 Essential (primary) hypertension; R73.9 Hyperglycemia, unspecified; D72.829 Elevated white blood cell count, unspecified; R00.0 Tachycardia, unspecified; D50.9 Iron deficiency anemia, unspecified; D63.8 Anemia in other chronic diseases classified elsewhere; D47.3 Essential (hemorrhagic) thrombocythemia; M19.90 Unspecified osteoarthritis, unspecified site; R19.7 Diarrhea, unspecified; M25.552 Pain in left hip; Z82.49 Family history of ischemic heart disease and other diseases of the circulatory system; Z87.891 Personal history of nicotine dependence; Z88.0 Allergy status to penicillin; Z88.8 Allergy status to other drugs, medicaments and biological substances; Z91.81 History of falling
CPT/HCPCS: 36415; 71010; 73522; 80048; 80053; 80061; 82550; 82553; 82728; 83036; 83540; 83550; 83735; 83880; 84439; 84443; 84481; 84484; 85025; 85379; 85384; 85610; 86850; 86900; 86920; 87040; 87086; 87804; 93005; 93306; 94640; 96374; 96375; 96376; 97116; 97162; 97530; 99285; J1200; J1650; J1956; J2060; J2270; J2920; J2930; J3010; J3475; J7050; J7611; J7620; P9016

== ENCOUNTER 2018-03-24 23:14 | Inpatient (IN) | payer MEDICAID ==
[~2018-03-24] VITALS: Ht 167.6 cm; Wt 55.3 kg
[~2018-03-24 23:14] MED LIST changes: +DIPH25CA83 PO; -HYDR-523 PO; -METH4TAB17 PO
[2018-03-25] MEDS ORDERED: IPRATROPIUM BROMIDE (0.02%) 0.5MG/2.5ML NEB HHN STA (00:15)
[2018-03-25] MEDS ORDERED: MORPHINE SULFATE 4 MG/ML CPJ (NOT FOR IM USE) IV STA (00:15)
[2018-03-25] MEDS ORDERED: MAGNESIUM 2 G PREMIX 50 ML IV ONE (00:15)
[2018-03-25] MEDS ORDERED: ALBUTEROL (0.083%) 2.5MG/3ML NEB HHN STA (00:15)
[2018-03-25] MEDS ORDERED: ONDANSETRON HCL 4MG/2ML VIAL IV STA (00:15)
[2018-03-25] MEDS ORDERED: METHYLPREDNISOLONE SOD SUCC 125 MG/2 ML VIAL IV STA (00:15)
[2018-03-25 00:51] LABS: BASOPHILS % 1.3 % (0.0-2.0); EOSINOPHILS % 2.4 % (0.0-5.0); HEMATOCRIT. 30.5 % (36.0-48.0); HEMOGLOBIN. 9.3 g/dL (12.0-16.0); MEAN CORPUSCULAR HEMOGLOBIN 25.5 pg (28.0-32.0); MEAN CORPUSCULAR VOLUME 83.8 fL (81.0-99.0); MEAN PLATELET VOLUME 6.6 fl (7.4-10.4); MONOCYTES % 10.2 % (2.0-8.0); NEUTROPHILS % 76.1 % (40.0-76.0); PLATELET 575 x1000/uL (130-400); RED BLOOD CELL COUNT 3.64 mill/uL (4.2-5.4); RED CELL DISTRIBUTION WIDTH 21.6 % (11.6-14.6)
[2018-03-25 00:58] LABS: CHLORIDE 106 mEq/L (98-107)
[2018-03-25] MEDS ORDERED: LEVOFLOXACIN 750MG PREMIX 150 ML IV ONE (01:00)
[2018-03-25] MEDS ORDERED: SODIUM CHLORIDE 0.9% 1,000 ML IV SCH (01:18)
[2018-03-25 02:50] VITALS: BP 104/69
[2018-03-25 04:00] VITALS: BP 104/69
[2018-03-25 04:11] LABS: BG BASE EXCESS 0.4 mmol/L (-2.0-2.0); BG CARBOXYHEMOGLOBIN 1.9 % (0.5-1.5); BG DEOXYHEMOGLOBIN 11.6 % (0.0-5.0); BG FRACTION INSPIRED OXYGEN 28; BG HCO3 ACT 26.8 mmol/L (22.0-26.0); BG METHEMOGLOBIN 0.3 % (0.0-1.5); BG OXYGEN SATURATION 88.1 % (92.0-98.5); BG OXYHEMOGLOBIN 86.2 % (94.0-97.0); BG PCO2 51.8 mmHg (35.0-45.0); BG PH 7.332 (7.350-7.450); BG PO2 58.6 mmHg (75.0-100.0); BG SAMPLE SITE LEFT RADIAL; BG TOTAL HEMOGLOBIN 10.6 g/dL (12.0-18.0); BG VENT MODE NASAL CANNULA
[2018-03-25] MEDS: DIPHENHYDRAMINE 50MG/ML VIAL IV PRN ×5 (04:46→23:26)
[2018-03-25] MEDS: METHYLPREDNISOLONE SOD SUCC 40 MG/ML VIAL IV SCH ×3 (05:43→21:54)
[2018-03-25] MEDS: CARISOPRODOL 350 MG TABLET PO SCH ×3 (05:43→21:54)
[2018-03-25] MEDS: HYDROCODONE/ACETAMINOPHEN 10/325MG TABLET PO PRN ×4 (05:47→22:38)
[2018-03-25 08:57] VITALS: BP 107/65
[2018-03-25] MEDS ORDERED: DEXTROSE 50% WATER 50ML SYRINGE IV PRN (10:30)
[2018-03-25] MEDS ORDERED: GUAIFENESIN/CODEINE 200-20MG/10ML UDC PO PRN (11:15)
[2018-03-25 12:27] VITALS: BP 104/70
[2018-03-25] MEDS: BLOOD SUGAR DIAGNOSTIC STRIP TEST SCH ×3 (13:34→21:56)
[2018-03-25] MEDS: INSULIN LISPRO 100 UNITS/ML SUBCUT SCH ×3 (13:52→21:55)
[2018-03-25] MEDS: BENZONATATE 100MG CAPSULE PO SCH ×2 (13:54→21:54)
[2018-03-25 17:17] VITALS: BP 112/66
[2018-03-25 20:00] VITALS: BP 103/61
[2018-03-25] MEDS: MORPHINE SULFATE 4 MG/ML CPJ (NOT FOR IM USE) IV PRN (20:58)
[2018-03-25] MEDS: INSULIN GLARGINE UD 100 UNITS/ML SYR SUBCUT SCH (21:56)
[2018-03-25] MEDS: BUDESONIDE 0.5MG/2ML NEB HHN SCH (22:00)
[2018-03-25] MEDS: IPRATROPIUM/ALBUTEROL 0.5-3(2.5)MG/3ML NEB HHN SCH (22:00)
[2018-03-25] MEDS: LEVOFLOXACIN 500MG PREMIX 100 ML IV SCH (23:26)
[2018-03-26] VITALS: BP 104/59
[2018-03-26] MEDS: IPRATROPIUM/ALBUTEROL 0.5-3(2.5)MG/3ML NEB HHN SCH ×6 (01:21→21:36)
[2018-03-26] MEDS: ZOLPIDEM TARTRATE 5MG TABLET PO PRN (01:46)
[2018-03-26] MEDS: HYDROCODONE/ACETAMINOPHEN 10/325MG TABLET PO PRN ×5 (02:41→21:27)
[2018-03-26 04:00] VITALS: BP 102/59
[2018-03-26] MEDS: MORPHINE SULFATE 4 MG/ML CPJ (NOT FOR IM USE) IV PRN ×5 (04:24→23:50)
[2018-03-26 04:44] LABS: CLARITY URINE CLEAR (CLEAR); COLOR URINE YELLOW (YELLOW); KETONES URINE NEGATIVE (NEGATIVE); LEUKOCYTE ESTERASE URINE NEGATIVE (NEGATIVE); NITRITE URINE NEGATIVE (NEGATIVE); OCCULT BLOOD URINE 2+ (NEGATIVE); PROTEIN URINE NEGATIVE (NEGATIVE); SPECIFIC GRAVITY URINE 1.035 (1.005-1.030); UROBILINOGEN URINE 0.2 E.U./dL (0.2-1.0)
[2018-03-26 04:56] LABS: *AMPHETAMINES SCREEN URINE NEGATIVE (NEGATIVE); *BARBITURATES SCREEN URINE NEGATIVE (NEGATIVE); *BENZODIAZEPINES SCREEN URINE NEGATIVE (NEGATIVE); *COCAINE SCREEN URINE NEGATIVE (NEGATIVE); METHADONE URINE SCREEN NEGATIVE (NEGATIVE)
[2018-03-26 04:57] LABS: CANNABINOID URINE SCREEN NEGATIVE (NEGATIVE); OPIATES URINE SCREEN PRESUMTIVE POSITIVE (NEGATIVE); PHENCYCLIDINE URINE SCREEN NEGATIVE (NEGATIVE)
[2018-03-26] MEDS: BENZONATATE 100MG CAPSULE PO SCH ×3 (05:37→21:34)
[2018-03-26] MEDS: DIPHENHYDRAMINE 50MG/ML VIAL IV PRN ×4 (05:37→22:10)
[2018-03-26] MEDS: METHYLPREDNISOLONE SOD SUCC 40 MG/ML VIAL IV SCH ×3 (05:37→21:28)
[2018-03-26] MEDS: CARISOPRODOL 350 MG TABLET PO SCH ×3 (05:37→21:27)
[2018-03-26] MEDS: BLOOD SUGAR DIAGNOSTIC STRIP TEST SCH ×4 (06:07→21:05)
[2018-03-26 06:26] LABS: HEMATOCRIT. 27.9 % (36.0-48.0); HEMOGLOBIN. 8.5 g/dL (12.0-16.0); MEAN CORPUSCULAR HEMOGLOBIN 25.9 pg (28.0-32.0); MEAN CORPUSCULAR VOLUME 85.5 fL (81.0-99.0); MEAN PLATELET VOLUME 7.1 fl (7.4-10.4); PLATELET 528 x1000/uL (130-400); RED BLOOD CELL COUNT 3.27 mill/uL (4.2-5.4); RED CELL DISTRIBUTION WIDTH 20.9 % (11.6-14.6)
[2018-03-26] MEDS: BUDESONIDE 0.5MG/2ML NEB HHN SCH ×2 (07:26→21:36)
[2018-03-26 08:00] VITALS: BP 118/65
[2018-03-26] MEDS: INSULIN LISPRO 100 UNITS/ML SUBCUT SCH ×5 (08:40→21:11)
[2018-03-26 10:31] LABS: PLATELET ESTIMATE INCREASED
[2018-03-26] MEDS: INSULIN GLARGINE UD 100 UNITS/ML SYR SUBCUT SCH ×2 (11:47→21:34)
[2018-03-26 12:00] VITALS: BP 110/73
[2018-03-26] MEDS ORDERED: IPRATROPIUM/ALBUTEROL 0.5-3(2.5)MG/3ML NEB HHN PRN (15:00)
[2018-03-26] MEDS ORDERED: DIPHENHYDRAMINE 50MG/ML VIAL IV NR (15:30)
[2018-03-26 16:00] VITALS: BP 106/64
[2018-03-26 20:00] VITALS: BP 105/62
[2018-03-26] MEDS: LEVOFLOXACIN 500MG PREMIX 100 ML IV SCH (22:14)
[2018-03-27] VITALS: BP 112/64
[2018-03-27] MEDS: HYDROCODONE/ACETAMINOPHEN 10/325MG TABLET PO PRN ×5 (01:29→18:52)
[2018-03-27] MEDS: IPRATROPIUM/ALBUTEROL 0.5-3(2.5)MG/3ML NEB HHN SCH ×6 (02:23→21:49)
[2018-03-27] MEDS: MORPHINE SULFATE 4 MG/ML CPJ (NOT FOR IM USE) IV PRN ×4 (03:54→23:51)
[2018-03-27 04:00] VITALS: BP 107/67
[2018-03-27] MEDS: DIPHENHYDRAMINE 50MG/ML VIAL IV PRN ×2 (04:29→22:07)
[2018-03-27] MEDS: METHYLPREDNISOLONE SOD SUCC 40 MG/ML VIAL IV SCH ×3 (06:02→21:23)
[2018-03-27] MEDS: CARISOPRODOL 350 MG TABLET PO SCH ×3 (06:04→21:23)
[2018-03-27] MEDS: BENZONATATE 100MG CAPSULE PO SCH ×3 (06:06→21:23)
[2018-03-27] MEDS: BLOOD SUGAR DIAGNOSTIC STRIP TEST SCH ×4 (06:45→21:27)
[2018-03-27] MEDS: BUDESONIDE 0.5MG/2ML NEB HHN SCH ×2 (07:25→21:49)
[2018-03-27] MEDS: INSULIN LISPRO 100 UNITS/ML SUBCUT SCH ×7 (07:56→21:24)
[2018-03-27 08:12] VITALS: BP 109/69
[2018-03-27] MEDS: INSULIN GLARGINE UD 100 UNITS/ML SYR SUBCUT SCH ×2 (09:13→21:24)
[2018-03-27] MEDS ORDERED: PROMETHAZINE/DEXTROMETHORPHAN 6.25-15MG/5ML BOTTLE 120ML PO PRN (11:00)
[2018-03-27 12:00] VITALS: BP 108/66
[2018-03-27] MEDS: GUAIFENESIN 600MG ER TABLET PO SCH ×2 (13:24→21:23)
[2018-03-27] MEDS: THEOPHYLLINE ANHYDROUS 80 MG/15 ML 120ML PO SCH ×2 (14:38→21:24)
[2018-03-27] MEDS: GUAIFENESIN/CODEINE 200-20MG/10ML UDC PO PRN ×2 (14:49→21:23)
[2018-03-27 16:00] VITALS: BP 120/71
[2018-03-27 20:00] VITALS: BP 120/69
[2018-03-27] MEDS: LEVOFLOXACIN 500MG PREMIX 100 ML IV SCH (22:08)
[2018-03-28] VITALS (7 sets, daily range): BP systolic 106–116; BP diastolic 62–76
[2018-03-28] MEDS: ZOLPIDEM TARTRATE 5MG TABLET PO PRN (00:33)
[2018-03-28] MEDS: HYDROCODONE/ACETAMINOPHEN 10/325MG TABLET PO PRN ×6 (01:15→22:55)
[2018-03-28] MEDS: DIPHENHYDRAMINE 50MG/ML VIAL IV PRN ×3 (05:02→17:12)
[2018-03-28] MEDS: IPRATROPIUM/ALBUTEROL 0.5-3(2.5)MG/3ML NEB HHN SCH ×5 (05:05→21:13)
[2018-03-28] MEDS: GUAIFENESIN/CODEINE 200-20MG/10ML UDC PO PRN ×2 (05:54→11:04)
[2018-03-28] MEDS: MORPHINE SULFATE 4 MG/ML CPJ (NOT FOR IM USE) IV PRN ×5 (05:54→22:15)
[2018-03-28] MEDS: THEOPHYLLINE ANHYDROUS 80 MG/15 ML 120ML PO SCH ×3 (06:00→22:00)
[2018-03-28] MEDS: CARISOPRODOL 350 MG TABLET PO SCH ×3 (06:26→22:08)
[2018-03-28] MEDS: BENZONATATE 100MG CAPSULE PO SCH ×3 (06:26→22:08)
[2018-03-28] MEDS: METHYLPREDNISOLONE SOD SUCC 40 MG/ML VIAL IV SCH ×3 (06:26→22:08)
[2018-03-28] MEDS: BLOOD SUGAR DIAGNOSTIC STRIP TEST SCH ×4 (07:11→20:51)
[2018-03-28] MEDS: INSULIN LISPRO 100 UNITS/ML SUBCUT SCH ×7 (08:16→20:46)
[2018-03-28] MEDS: GUAIFENESIN 600MG ER TABLET PO SCH ×2 (09:20→22:21)
[2018-03-28] MEDS: INSULIN GLARGINE UD 100 UNITS/ML SYR SUBCUT SCH ×2 (09:57→22:18)
[2018-03-28] MEDS: BUDESONIDE 0.5MG/2ML NEB HHN SCH (10:12)
[2018-03-28] MEDS: LEVOFLOXACIN 500MG PREMIX 100 ML IV SCH (22:58)
[2018-03-29] MEDS: DIPHENHYDRAMINE 50MG/ML VIAL IV PRN ×5 (00:21→22:54)
[2018-03-29] MEDS: IPRATROPIUM/ALBUTEROL 0.5-3(2.5)MG/3ML NEB HHN SCH ×7 (00:30→23:58)
[2018-03-29 04:00] VITALS: BP 114/74
[2018-03-29] MEDS: THEOPHYLLINE ANHYDROUS 80 MG/15 ML 120ML PO SCH ×3 (06:00→21:33)
[2018-03-29] MEDS: METHYLPREDNISOLONE SOD SUCC 40 MG/ML VIAL IV SCH (06:30)
[2018-03-29] MEDS: CARISOPRODOL 350 MG TABLET PO SCH ×3 (06:35→21:13)
[2018-03-29] MEDS: BENZONATATE 100MG CAPSULE PO SCH ×3 (06:41→21:13)
[2018-03-29] MEDS: BLOOD SUGAR DIAGNOSTIC STRIP TEST SCH ×4 (07:20→21:22)
[2018-03-29] MEDS: GUAIFENESIN/CODEINE 200-20MG/10ML UDC PO PRN ×2 (07:59→21:12)
[2018-03-29 08:00] VITALS: BP 116/77
[2018-03-29] MEDS: MORPHINE SULFATE 4 MG/ML CPJ (NOT FOR IM USE) IV PRN ×4 (08:00→21:12)
[2018-03-29] MEDS: INSULIN LISPRO 100 UNITS/ML SUBCUT SCH ×7 (08:01→21:33)
[2018-03-29] MEDS: HYDROCODONE/ACETAMINOPHEN 10/325MG TABLET PO PRN ×4 (08:42→23:14)
[2018-03-29] MEDS: GUAIFENESIN 600MG ER TABLET PO SCH ×2 (09:56→21:14)
[2018-03-29] MEDS: INSULIN GLARGINE UD 100 UNITS/ML SYR SUBCUT SCH ×2 (10:59→21:32)
[2018-03-29 12:00] VITALS: BP 115/69
[2018-03-29 16:00] VITALS: BP 117/78
[2018-03-29 20:00] VITALS: BP 111/71
[2018-03-29] MEDS: ZOLPIDEM TARTRATE 5MG TABLET PO PRN (21:13)
[2018-03-29] MEDS: LEVOFLOXACIN 500MG PREMIX 100 ML IV SCH (22:58)
[2018-03-30] VITALS: BP 121/68
[2018-03-30 04:00] VITALS: BP 133/74
[2018-03-30] MEDS: IPRATROPIUM/ALBUTEROL 0.5-3(2.5)MG/3ML NEB HHN SCH ×5 (04:19→21:09)
[2018-03-30] MEDS: THEOPHYLLINE ANHYDROUS 80 MG/15 ML 120ML PO SCH ×3 (05:38→21:55)
[2018-03-30] MEDS: DIPHENHYDRAMINE 50MG/ML VIAL IV PRN ×4 (05:46→20:17)
[2018-03-30] MEDS: MORPHINE SULFATE 4 MG/ML CPJ (NOT FOR IM USE) IV PRN ×3 (05:46→15:22)
[2018-03-30] MEDS: BENZONATATE 100MG CAPSULE PO SCH ×3 (05:47→21:54)
[2018-03-30] MEDS: CARISOPRODOL 350 MG TABLET PO SCH ×3 (05:47→21:54)
[2018-03-30] MEDS: BLOOD SUGAR DIAGNOSTIC STRIP TEST SCH ×4 (06:01→21:00)
[2018-03-30] MEDS: INSULIN LISPRO 100 UNITS/ML SUBCUT SCH ×7 (07:27→21:59)
[2018-03-30 08:00] VITALS: BP 103/72
[2018-03-30] MEDS: PREDNISONE 20MG TABLET PO SCH ×2 (09:08→19:08)
[2018-03-30] MEDS: GUAIFENESIN 600MG ER TABLET PO SCH ×2 (09:08→21:54)
[2018-03-30 12:00] VITALS: BP 122/63
[2018-03-30] MEDS: HYDROCODONE/ACETAMINOPHEN 10/325MG TABLET PO PRN ×2 (14:20→20:16)
[2018-03-30 16:00] VITALS: BP 96/62
[2018-03-30] MEDS ORDERED: GUAIFENESIN/CODEINE 200-20MG/10ML UDC PO PRN (17:15)
[2018-03-30 20:00] VITALS: BP 115/77
[2018-03-30] MEDS: INSULIN GLARGINE UD 100 UNITS/ML SYR SUBCUT SCH (22:39)
[2018-03-30] MEDS: LEVOFLOXACIN 500MG PREMIX 100 ML IV SCH (22:40)
[2018-03-31] VITALS: BP 115/60
[2018-03-31] MEDS: IPRATROPIUM/ALBUTEROL 0.5-3(2.5)MG/3ML NEB HHN SCH ×4 (00:19→12:10)
[2018-03-31] MEDS: HYDROCODONE/ACETAMINOPHEN 10/325MG TABLET PO PRN ×4 (00:37→13:35)
[2018-03-31] MEDS: DIPHENHYDRAMINE 50MG/ML VIAL IV PRN ×4 (00:38→12:28)
[2018-03-31 04:00] VITALS: BP 104/61
[2018-03-31] MEDS: THEOPHYLLINE ANHYDROUS 80 MG/15 ML 120ML PO SCH ×2 (06:00→14:24)
[2018-03-31] MEDS: BENZONATATE 100MG CAPSULE PO SCH ×2 (06:36→14:23)
[2018-03-31] MEDS: CARISOPRODOL 350 MG TABLET PO SCH ×2 (06:36→14:23)
[2018-03-31] MEDS: BLOOD SUGAR DIAGNOSTIC STRIP TEST SCH ×2 (08:00→13:05)
[2018-03-31] MEDS: PREDNISONE 20MG TABLET PO SCH (08:28)
[2018-03-31] MEDS: GUAIFENESIN 600MG ER TABLET PO SCH (08:28)
[2018-03-31] MEDS: INSULIN LISPRO 100 UNITS/ML SUBCUT SCH ×4 (08:30→13:18)
[2018-03-31] MEDS: INSULIN GLARGINE UD 100 UNITS/ML SYR SUBCUT SCH (09:44)
[2018-03-31 10:35] VITALS: BP 132/87
[2018-03-31 13:35] VITALS: BP 137/89
== END 2018-03-31 16:18 | disposition home or self-care (01) | DRG 720 ==
LOC: ER 23:40 → 7WST 03-25 01:20 → EDBEDREQ 03-25 01:21 → ENRESERV 03-25 01:50 → 7WST 03-25 04:44
PROVIDERS: ADMIT Internal Medicine; ATTEND Internal Medicine
DX: A41.9 Sepsis, unspecified organism (principal); J96.21 Acute and chronic respiratory failure with hypoxia; J18.9 Pneumonia, unspecified organism; E44.0 Moderate protein-calorie malnutrition; J44.0 Chronic obstructive pulmonary disease with (acute) lower respiratory infection; J45.901 Unspecified asthma with (acute) exacerbation; Z99.81 Dependence on supplemental oxygen; J44.1 Chronic obstructive pulmonary disease with (acute) exacerbation; J96.22 Acute and chronic respiratory failure with hypercapnia; E11.65 Type 2 diabetes mellitus with hyperglycemia; E87.6 Hypokalemia; M54.30 Sciatica, unspecified side; L30.9 Dermatitis, unspecified; I10 Essential (primary) hypertension; D64.9 Anemia, unspecified; Z87.891 Personal history of nicotine dependence
CPT/HCPCS: 36415; 36600; 71045; 80053; 80305; 81003; 82375; 82805; 82962; 83605; 83880; 84484; 85025; 87040; 93005; 94640; 94644; 97162; 99291; C1893; J1200; J1815; J1956; J2270; J2405; J2920; J2930; J3475; J7030; J7512; J7611; J7620; J7626

== ENCOUNTER 2018-06-10 08:49 | Inpatient (IN) | payer MEDICAID ==
[2018-06-10] VITALS (8 sets, daily range): BP systolic 109–137; BP diastolic 67–117
[~2018-06-10] VITALS: Ht 167.6 cm; Wt 51.3 kg
[~2018-06-10 08:49] MED LIST changes: -CARI350T PO; +HYDR-4009 MT; -LEVO500T2 PO; +S350 PO
[2018-06-10] MEDS ORDERED: IPRATROPIUM BROMIDE (0.02%) 0.5MG/2.5ML NEB HHN STA (09:57)
[2018-06-10] MEDS ORDERED: MAGNESIUM 2 G PREMIX 50 ML IV STA (09:57)
[2018-06-10] MEDS ORDERED: ALBUTEROL (0.083%) 2.5MG/3ML NEB HHN STA (09:57)
[2018-06-10] MEDS ORDERED: METHYLPREDNISOLONE SOD SUCC 125 MG/2 ML VIAL IV STA (09:57)
[2018-06-10] MEDS ORDERED: LEVOFLOXACIN 500MG PREMIX 100 ML IV ONE (10:15)
[2018-06-10] MEDS ORDERED: MORPHINE SULFATE 4 MG/ML CPJ (NOT FOR IM USE) IV ONE (10:15)
[2018-06-10] MEDS ORDERED: ONDANSETRON HCL 4MG/2ML INJ IV ONE (10:15)
[2018-06-10 10:23] LABS: HEMATOCRIT. 31.2 % (36.0-48.0); HEMOGLOBIN. 8.9 g/dL (12.0-16.0); MEAN CORPUSCULAR HEMOGLOBIN 23.9 pg (28.0-32.0); MEAN CORPUSCULAR VOLUME 83.2 fL (81.0-99.0); MEAN PLATELET VOLUME 6.4 fl (7.4-10.4); PLATELET 619 x1000/uL (130-400); RED BLOOD CELL COUNT 3.75 mill/uL (4.2-5.4); RED CELL DISTRIBUTION WIDTH 20.2 % (11.6-14.6)
[2018-06-10 10:30] LABS: CHLORIDE 105 mEq/L (98-107)
[2018-06-10] MEDS ORDERED: MAGNESIUM SULFATE 2 GM in DEXTROSE 5% WATER 50 ML IV ONE (10:30)
[2018-06-10 10:32] LABS: PARTIAL THROMBOPLASTIN TIME 27.1 sec (23.4-31.0)
[2018-06-10] MEDS ORDERED: SODIUM CHLORIDE 0.9% 1000ML BAG (SEPSIS BOLUS) IV ONE (11:00)
[2018-06-10 11:01] LABS: ATYPICAL LYMPHOCYTES 1; PLATELET ESTIMATE INCREASED
[2018-06-10 11:09] LABS: *AMPHETAMINES SCREEN URINE NEGATIVE (NEGATIVE); *BARBITURATES SCREEN URINE NEGATIVE (NEGATIVE); *BENZODIAZEPINES SCREEN URINE NEGATIVE (NEGATIVE); *COCAINE SCREEN URINE NEGATIVE (NEGATIVE); METHADONE URINE SCREEN NEGATIVE (NEGATIVE); OPIATES URINE SCREEN PRESUMTIVE POSITIVE (NEGATIVE)
[2018-06-10 11:10] LABS: CANNABINOID URINE SCREEN NEGATIVE (NEGATIVE); PHENCYCLIDINE URINE SCREEN NEGATIVE (NEGATIVE)
[2018-06-10] MEDS ORDERED: GUAIFENESIN 200MG/10ML SUGAR FREE UDC PO PRN (11:45)
[2018-06-10] MEDS ORDERED: ACETAMINOPHEN 325MG TABLET PO PRN (11:45)
[2018-06-10] MEDS ORDERED: MAGNESIUM/ALUMINUM HYDROXIDE/SIMETHICONE 30ML UDC PO PRN (11:45)
[2018-06-10] MEDS ORDERED: CLONIDINE 0.1MG TABLET PO PRN (11:45)
[2018-06-10] MEDS ORDERED: NA PHOS,M-B/NA PHOS,DI-BA ENEMA 118ML PR PRN (11:45)
[2018-06-10] MEDS ORDERED: LORAZEPAM 2MG/ML CPJ IV PRN (11:45)
[2018-06-10] MEDS ORDERED: ONDANSETRON HCL 4MG/2ML INJ IV PRN (11:45)
[2018-06-10] MEDS ORDERED: DOCUSATE SODIUM 100MG CAPSULE PO PRN (11:45)
[2018-06-10] MEDS ORDERED: KETOROLAC 60MG/2ML VIAL IM ONE (14:15)
[2018-06-10] MEDS: HYDROCODONE/ACETAMINOPHEN 5/325MG TABLET PO PRN ×3 (14:24→22:15)
[2018-06-10] MEDS: ENOXAPARIN 40MG/0.4ML SYR SUBCUT SCH ×2 (16:58→17:13)
[2018-06-10] MEDS: METHYLPREDNISOLONE SOD SUCC 125 MG/2 ML VIAL IV SCH (17:14)
[2018-06-10] MEDS: DIPHENHYDRAMINE 50MG/ML VIAL IV PRN ×2 (17:14→22:15)
[2018-06-10] MEDS: HYDROMORPHONE HCL/PF 2MG/ML CPJ IV PRN (19:57)
[2018-06-10] MEDS: IPRATROPIUM/ALBUTEROL 0.5-3(2.5)MG/3ML NEB INH PRN (20:14)
[2018-06-11] VITALS (10 sets, daily range): BP systolic 103–125; BP diastolic 62–84
[2018-06-11] MEDS: METHYLPREDNISOLONE SOD SUCC 125 MG/2 ML VIAL IV SCH ×4 (00:10→18:59)
[2018-06-11] MEDS: IPRATROPIUM/ALBUTEROL 0.5-3(2.5)MG/3ML NEB INH PRN ×3 (00:18→09:54)
[2018-06-11 00:25] LABS: CHLORIDE 98 mEq/L (98-107)
[2018-06-11] MEDS: DIPHENHYDRAMINE 50MG/ML VIAL IV PRN ×5 (02:20→20:34)
[2018-06-11] MEDS: HYDROCODONE/ACETAMINOPHEN 5/325MG TABLET PO PRN ×5 (02:21→19:56)
[2018-06-11] MEDS: HYDROMORPHONE HCL/PF 2MG/ML CPJ IV PRN ×5 (04:13→21:57)
[2018-06-11] MEDS: ASPIRIN 81MG EC TABLET PO SCH (08:52)
[2018-06-11] MEDS: LEVOFLOXACIN 500MG PREMIX 100 ML IV SCH (16:07)
[2018-06-11] MEDS: ENOXAPARIN 40MG/0.4ML SYR SUBCUT SCH (16:58)
[2018-06-11 17:15] LABS: HEMATOCRIT. 27.9 % (36.0-48.0); HEMOGLOBIN. 8.3 g/dL (12.0-16.0); MEAN CORPUSCULAR HEMOGLOBIN 24.5 pg (28.0-32.0); MEAN CORPUSCULAR VOLUME 82.3 fL (81.0-99.0); MEAN PLATELET VOLUME 6.7 fl (7.4-10.4); PLATELET 534 x1000/uL (130-400); RED BLOOD CELL COUNT 3.39 mill/uL (4.2-5.4)
[2018-06-11 17:24] LABS: CHLORIDE 95 mEq/L (98-107)
[2018-06-11 17:30] LABS: CREATINE KINASE 47 IU/L (26-192)
[2018-06-11 17:31] LABS: CREATINE KINASE MB FRACTION 1.4 ng/mL (0.5-3.6)
[2018-06-11 17:35] LABS: PLATELET ESTIMATE INCREASED
[2018-06-11 17:36] LABS: HDL CHOLESTEROL 97 mg/dL (40-59)
[2018-06-11 17:37] LABS: LDL CHOLESTEROL 98 mg/dL (5-100)
[2018-06-11 17:38] LABS: T4 FREE 0.71 ng/dL (0.76-1.46)
[2018-06-11] MEDS: ALBUTEROL (0.083%) 2.5MG/3ML NEB HHN SCH ×2 (17:56→20:13)
[2018-06-11] MEDS: GUAIFENESIN 600MG ER TABLET PO SCH (21:12)
[2018-06-11 23:53] LABS: CREATINE KINASE 45 IU/L (26-192)
[2018-06-11 23:54] LABS: CREATINE KINASE MB FRACTION 1.3 ng/mL (0.5-3.6)
[2018-06-12] VITALS: BP 102/59
[2018-06-12] MEDS: ALBUTEROL (0.083%) 2.5MG/3ML NEB HHN SCH ×6 (00:14→23:44)
[2018-06-12] MEDS: ACETYLCYSTEINE 100MG/ML 10% VIAL 4ML INH SCH ×4 (00:14→23:44)
[2018-06-12] MEDS: DIPHENHYDRAMINE 50MG/ML VIAL IV PRN ×7 (00:22→22:46)
[2018-06-12] MEDS: METHYLPREDNISOLONE SOD SUCC 125 MG/2 ML VIAL IV SCH ×4 (00:23→18:23)
[2018-06-12] MEDS: HYDROCODONE/ACETAMINOPHEN 5/325MG TABLET PO PRN ×6 (00:53→22:33)
[2018-06-12] MEDS: HYDROMORPHONE HCL/PF 2MG/ML CPJ IV PRN ×5 (02:10→20:09)
[2018-06-12 05:00] VITALS: BP 135/65
[2018-06-12 07:32] LABS: CHLORIDE 97 mEq/L (98-107)
[2018-06-12 07:35] LABS: HEMATOCRIT. 28.2 % (36.0-48.0); HEMOGLOBIN. 8.6 g/dL (12.0-16.0); MEAN CORPUSCULAR VOLUME 81.7 fL (81.0-99.0); MEAN PLATELET VOLUME 6.6 fl (7.4-10.4); PLATELET 482 x1000/uL (130-400); RED BLOOD CELL COUNT 3.46 mill/uL (4.2-5.4); RED CELL DISTRIBUTION WIDTH 20.7 % (11.6-14.6)
[2018-06-12 07:45] LABS: CREATINE KINASE 36 IU/L (26-192)
[2018-06-12 07:48] LABS: CREATINE KINASE MB FRACTION 1.6 ng/mL (0.5-3.6)
[2018-06-12 08:00] VITALS: BP 116/78
[2018-06-12] MEDS: ASPIRIN 81MG EC TABLET PO SCH (08:33)
[2018-06-12] MEDS: GUAIFENESIN 600MG ER TABLET PO SCH ×2 (08:33→21:42)
[2018-06-12] MEDS: ALBUTEROL (0.5%) 2.5MG/0.5ML NEB HHN PRN ×2 (09:04→16:38)
[2018-06-12] MEDS: LEVOFLOXACIN 500MG PREMIX 100 ML IV SCH ×2 (10:53→17:00)
[2018-06-12 11:18] LABS: PLATELET ESTIMATE SLIGHTLY INCREASED
[2018-06-12] MEDS ORDERED: DEXTROSE 50% WATER 50ML SYRINGE IV PRN (11:45)
[2018-06-12 12:00] VITALS: BP 115/66
[2018-06-12] MEDS: BLOOD SUGAR DIAGNOSTIC STRIP TEST SCH ×3 (12:46→20:52)
[2018-06-12] MEDS: INSULIN LISPRO 100 UNITS/ML SUBCUT SCH ×3 (12:46→21:45)
[2018-06-12 15:46] LABS: BG CARBOXYHEMOGLOBIN 0.2 % (0.5-1.5); BG DEOXYHEMOGLOBIN 7.4 % (0.0-5.0); BG FRACTION INSPIRED OXYGEN 28; BG HCO3 ACT 33.2 mmol/L (22.0-26.0); BG METHEMOGLOBIN 0.3 % (0.0-1.5); BG OXYGEN SATURATION 92.6 % (92.0-98.5); BG OXYHEMOGLOBIN 92.1 % (94.0-97.0); BG PCO2 56.3 mmHg (35.0-45.0); BG PH 7.388 (7.350-7.450); BG PO2 71.2 mmHg (75.0-100.0); BG SAMPLE SITE RIGHT RADIAL; BG TOTAL HEMOGLOBIN 9.4 g/dL (12.0-18.0); BG VENT MODE NASAL CANNULA
[2018-06-12 16:00] VITALS: BP 118/76
[2018-06-12] MEDS: THEOPHYLLINE ANHYDROUS 80 MG/15 ML 120ML PO SCH ×2 (16:15→21:42)
[2018-06-12] MEDS: ENOXAPARIN 40MG/0.4ML SYR SUBCUT SCH (16:16)
[2018-06-12 20:00] VITALS: BP 130/60
[2018-06-13] VITALS: BP 111/78
[2018-06-13] MEDS: METHYLPREDNISOLONE SOD SUCC 125 MG/2 ML VIAL IV SCH ×2 (00:10→06:00)
[2018-06-13] MEDS: HYDROMORPHONE HCL/PF 2MG/ML CPJ IV PRN ×7 (00:11→21:35)
[2018-06-13] MEDS: HYDROCODONE/ACETAMINOPHEN 5/325MG TABLET PO PRN ×4 (02:36→23:38)
[2018-06-13] MEDS: DIPHENHYDRAMINE 50MG/ML VIAL IV PRN ×3 (02:47→20:31)
[2018-06-13 04:00] VITALS: BP 119/75
[2018-06-13] MEDS: ALBUTEROL (0.083%) 2.5MG/3ML NEB HHN SCH ×3 (04:52→20:05)
[2018-06-13] MEDS: THEOPHYLLINE ANHYDROUS 80 MG/15 ML 120ML PO SCH ×3 (06:00→22:00)
[2018-06-13] MEDS: BLOOD SUGAR DIAGNOSTIC STRIP TEST SCH ×4 (06:24→20:31)
[2018-06-13 07:57] VITALS: BP 119/69
[2018-06-13] MEDS: ASPIRIN 81MG EC TABLET PO SCH (08:18)
[2018-06-13] MEDS: GUAIFENESIN 600MG ER TABLET PO SCH ×2 (08:18→20:31)
[2018-06-13] MEDS: INSULIN LISPRO 100 UNITS/ML SUBCUT SCH ×4 (08:21→21:18)
[2018-06-13 09:31] LABS: HEMATOCRIT 27.9 % (36.0-48.0); HEMOGLOBIN 8.3 g/dL (12.0-16.0); MEAN CORPUSCULAR HEMOGLOBIN 24.4 pg (28.0-32.0); MEAN CORPUSCULAR VOLUME 82.3 fL (81.0-99.0); PLATELET 418 x1000/uL (130-400); RED BLOOD CELL COUNT 3.39 mill/uL (4.2-5.4)
[2018-06-13 09:49] LABS: CHLORIDE 98 mEq/L (98-107)
[2018-06-13 12:11] VITALS: BP 123/61
[2018-06-13] MEDS ORDERED: LIDOCAINE HCL/PF 1% 2ML VIAL ONE (12:57)
[2018-06-13 14:22] LABS: BG BASE EXCESS 10.1 mmol/L (-2.0-2.0); BG CARBOXYHEMOGLOBIN 0.3 % (0.5-1.5); BG DEOXYHEMOGLOBIN 7.4 % (0.0-5.0); BG FRACTION INSPIRED OXYGEN 28; BG HCO3 ACT 36.4 mmol/L (22.0-26.0); BG METHEMOGLOBIN 0.3 % (0.0-1.5); BG OXYGEN SATURATION 92.6 % (92.0-98.5); BG PCO2 60.2 mmHg (35.0-45.0); BG PH 7.399 (7.350-7.450); BG PO2 69.2 mmHg (75.0-100.0); BG SAMPLE SITE RIGHT RADIAL; BG TOTAL HEMOGLOBIN 9.2 g/dL (12.0-18.0); BG VENT MODE NASAL CANNULA
[2018-06-13] MEDS: METHYLPREDNISOLONE SOD SUCC 40 MG/ML VIAL IV SCH ×2 (14:49→21:36)
[2018-06-13 16:38] VITALS: BP 109/61
[2018-06-13] MEDS: LEVOFLOXACIN 500MG PREMIX 100 ML IV SCH (16:48)
[2018-06-13] MEDS: ENOXAPARIN 40MG/0.4ML SYR SUBCUT SCH (16:48)
[2018-06-13 20:54] VITALS: BP 138/73
[2018-06-13] MEDS: ACETYLCYSTEINE 100MG/ML 10% VIAL 4ML INH SCH (21:36)
[2018-06-14] VITALS (7 sets, daily range): BP systolic 112–144; BP diastolic 65–76
[2018-06-14] MEDS: ACETYLCYSTEINE 100MG/ML 10% VIAL 4ML INH SCH ×3 (00:29→16:14)
[2018-06-14] MEDS: DIPHENHYDRAMINE 50MG/ML VIAL IV PRN ×5 (00:33→17:55)
[2018-06-14] MEDS: ALBUTEROL (0.083%) 2.5MG/3ML NEB HHN SCH ×6 (00:34→20:33)
[2018-06-14] MEDS: HYDROMORPHONE HCL/PF 2MG/ML CPJ IV PRN ×6 (01:16→23:43)
[2018-06-14] MEDS: METHYLPREDNISOLONE SOD SUCC 40 MG/ML VIAL IV SCH ×2 (05:50→13:40)
[2018-06-14] MEDS: HYDROCODONE/ACETAMINOPHEN 5/325MG TABLET PO PRN ×3 (05:52→19:55)
[2018-06-14] MEDS: THEOPHYLLINE ANHYDROUS 80 MG/15 ML 120ML PO SCH ×3 (06:00→22:00)
[2018-06-14] MEDS: BLOOD SUGAR DIAGNOSTIC STRIP TEST SCH ×4 (06:31→21:50)
[2018-06-14] MEDS: GUAIFENESIN 600MG ER TABLET PO SCH ×2 (08:54→22:02)
[2018-06-14] MEDS: ASPIRIN 81MG EC TABLET PO SCH (08:54)
[2018-06-14] MEDS: INSULIN LISPRO 100 UNITS/ML SUBCUT SCH ×4 (08:56→22:07)
[2018-06-14] MEDS: ENOXAPARIN 40MG/0.4ML SYR SUBCUT SCH (16:58)
[2018-06-14] MEDS: LEVOFLOXACIN 500MG PREMIX 100 ML IV SCH (17:00)
[2018-06-14] MEDS ORDERED: DIPHENHYDRAMINE 50MG/ML VIAL IV NR ×2 (18:30→22:00)
[2018-06-14] MEDS ORDERED: IOHEXOL-350 100 ML BOTTLE ONE (23:34)
[2018-06-15] MEDS: ALBUTEROL (0.083%) 2.5MG/3ML NEB HHN SCH ×2 (00:30→04:19)
[2018-06-15] MEDS: DIPHENHYDRAMINE 50MG/ML VIAL IV PRN ×4 (02:07→13:02)
[2018-06-15] MEDS: HYDROCODONE/ACETAMINOPHEN 5/325MG TABLET PO PRN ×3 (02:08→09:28)
[2018-06-15 03:41] VITALS: BP 151/67
[2018-06-15] MEDS: HYDROMORPHONE HCL/PF 2MG/ML CPJ IV PRN ×2 (03:47→07:48)
[2018-06-15] MEDS: BLOOD SUGAR DIAGNOSTIC STRIP TEST SCH ×2 (06:37→12:13)
[2018-06-15] MEDS: THEOPHYLLINE ANHYDROUS 80 MG/15 ML 120ML PO SCH ×2 (06:38→14:00)
[2018-06-15] MEDS: INSULIN LISPRO 100 UNITS/ML SUBCUT SCH ×2 (07:52→12:14)
[2018-06-15 08:00] VITALS: BP 110/56
[2018-06-15] MEDS: ALBUTEROL (0.5%) 2.5MG/0.5ML NEB HHN PRN (08:52)
[2018-06-15] MEDS ORDERED: METHYLPREDNISOLONE SOD SUCC 40 MG/ML VIAL IV SCH (09:00)
[2018-06-15] MEDS: ASPIRIN 81MG EC TABLET PO SCH (09:27)
[2018-06-15] MEDS: GUAIFENESIN 600MG ER TABLET PO SCH (09:27)
[2018-06-15 11:38] VITALS: BP 108/62
[2018-06-15 12:00] VITALS: BP 108/62
== END 2018-06-15 18:29 | disposition home or self-care (01) | DRG 140 ==
LOC: ER 08:49 → EDBEDREQSVC 11:05 → EDBEDREQ 11:05 → 3WST 11:21 → EDBEDREQTM 11:26 → EDBEDREQ 11:26 → ENRESERV 14:30 → CANRESERV 14:30 → ENRESERV 14:34 → CANBEDREQ 06-11 00:21 → 6WST 06-11 10:30
PROVIDERS: ADMIT Internal Medicine; ATTEND Internal Medicine
DX: J44.1 Chronic obstructive pulmonary disease with (acute) exacerbation (principal); J96.00 Acute respiratory failure, unspecified whether with hypoxia or hypercapnia; J69.0 Pneumonitis due to inhalation of food and vomit; I11.0 Hypertensive heart disease with heart failure; E44.0 Moderate protein-calorie malnutrition; E87.2 Acidosis; I50.9 Heart failure, unspecified; Z99.81 Dependence on supplemental oxygen; D64.9 Anemia, unspecified; E78.5 Hyperlipidemia, unspecified; I25.10 Atherosclerotic heart disease of native coronary artery without angina pectoris; M54.30 Sciatica, unspecified side; G89.29 Other chronic pain; R73.9 Hyperglycemia, unspecified; L30.9 Dermatitis, unspecified; T38.0X5A Adverse effect of glucocorticoids and synthetic analogues, initial encounter; W18.30XA Fall on same level, unspecified, initial encounter; Y93.89 Activity, other specified; Y99.8 Other external cause status; Z87.891 Personal history of nicotine dependence; Z79.899 Other long term (current) drug therapy; I25.2 Old myocardial infarction; Z88.0 Allergy status to penicillin; Z88.8 Allergy status to other drugs, medicaments and biological substances; Z87.01 Personal history of pneumonia (recurrent); Y92.89 Other specified places as the place of occurrence of the external cause; Z68.1 Body mass index [BMI] 19.9 or less, adult
CPT/HCPCS: 36415; 36600; 71045; 71275; 73502; 78580; 80048; 80053; 80061; 80305; 82375; 82550; 82553; 82805; 82962; 83036; 83605; 83880; 84439; 84443; 84484; 85025; 85027; 85379; 85610; 85730; 87040; 87077; 87086; 93005; 93306; 93970; 94640; 94644; 96365; 96375; 99291; C1893; J1170; J1200; J1650; J1815; J1885; J1956; J2270; J2405; J2920; J2930; J3475; J3490; J7030; J7050; J7060; J7608; J7611; J7620; Q9967

== ENCOUNTER 2018-07-19 07:00 | Inpatient (IN) | payer MEDICAID ==
[~2018-07-19] VITALS: Ht 167.6 cm; Wt 47.3 kg
[~2018-07-19 07:00] MED LIST changes: -HYDR-4009 MT
[2018-07-19] MEDS ORDERED: METHYLPREDNISOLONE SOD SUCC 125 MG/2 ML VIAL IV STA (07:14)
[2018-07-19] MEDS ORDERED: IPRATROPIUM/ALBUTEROL 0.5-3(2.5)MG/3ML NEB HHN ONE (07:15)
[2018-07-19] MEDS ORDERED: MAGNESIUM 2 G PREMIX 50 ML IV ONE (07:15)
[2018-07-19] MEDS ORDERED: MORPHINE SULFATE 4 MG/ML CPJ (NOT FOR IM USE) IV ONE (08:30)
[2018-07-19] MEDS ORDERED: ONDANSETRON HCL 4MG/2ML INJ IV ONE (08:30)
[2018-07-19 08:59] LABS: BASOPHILS % 0.3 % (0.0-2.0); HEMOGLOBIN. 8.8 g/dL (12.0-16.0); LYMPHOCYTES % 9.4 % (20.0-50.0); MEAN CORPUSCULAR HEMOGLOBIN 24.3 pg (28.0-32.0); MEAN CORPUSCULAR VOLUME 82.6 fL (81.0-99.0); MEAN PLATELET VOLUME 6.8 fl (7.4-10.4); MONOCYTES % 7.3 % (2.0-8.0); PLATELET 408 x1000/uL (130-400); RED BLOOD CELL COUNT 3.63 mill/uL (4.2-5.4)
[2018-07-19 09:01] LABS: CHLORIDE 98 mEq/L (98-107)
[2018-07-19 09:03] LABS: PARTIAL THROMBOPLASTIN TIME 24.5 sec (23.4-31.0); PROTHROMBIN TIME 10.3 sec (9.1-11.1)
[2018-07-19 09:06] LABS: ETHANOL BLOOD < 10 mg/dL
[2018-07-19] MEDS ORDERED: LEVOFLOXACIN 750MG PREMIX 150 ML IV ONE (09:30)
[2018-07-19 09:46] LABS: BG BASE EXCESS 3.3 mmol/L (-2.0-2.0); BG CARBOXYHEMOGLOBIN 3.9 % (0.5-1.5); BG DEOXYHEMOGLOBIN 0.9 % (0.0-5.0); BG HCO3 ACT 28.7 mmol/L (22.0-26.0); BG METHEMOGLOBIN 0.5 % (0.0-1.5); BG OXYGEN SATURATION 99.1 % (92.0-98.5); BG OXYHEMOGLOBIN 94.7 % (94.0-97.0); BG PCO2 48.1 mmHg (35.0-45.0); BG PH 7.394 (7.350-7.450); BG PO2 171.2 mmHg (75.0-100.0); BG SAMPLE SITE RIGHT RADIAL; BG TOTAL HEMOGLOBIN 9.7 g/dL (12.0-18.0); BG VENT MODE MASK - SIMPLE
[2018-07-19] MEDS ORDERED: POTASSIUM CHLORIDE 20MEQ TABLET SR PO ONE (11:15)
[2018-07-19 12:00] VITALS: BP 126/72
[2018-07-19 12:08] VITALS: BP 126/72
[2018-07-19] MEDS ORDERED: IPRATROPIUM/ALBUTEROL 0.5-3(2.5)MG/3ML NEB HHN PRN (12:45)
[2018-07-19] MEDS ORDERED: GUAIFENESIN/DM 600MG/30MG ER TAB 12HR PO PRN (12:45)
[2018-07-19] MEDS: HYDROCODONE/ACETAMINOPHEN 10/325MG TABLET PO PRN ×2 (12:55→19:37)
[2018-07-19] MEDS: DIPHENHYDRAMINE 50MG/ML VIAL IV PRN ×2 (13:23→19:36)
[2018-07-19] MEDS ORDERED: POTASSIUM CHLORIDE 20MEQ TABLET SR PO NR (13:30)
[2018-07-19] MEDS ORDERED: RISPERIDONE 0.5MG TABLET PO PRN (14:30)
[2018-07-19] MEDS ORDERED: ONDANSETRON HCL 4MG/2ML INJ IV PRN (14:30)
[2018-07-19] MEDS ORDERED: ACETAMINOPHEN 325MG TABLET PO PRN (14:30)
[2018-07-19] MEDS: METHYLPREDNISOLONE SOD SUCC 40 MG/ML VIAL IV SCH ×2 (15:57→21:51)
[2018-07-19] MEDS: ENOXAPARIN 40MG/0.4ML SYR SUBCUT SCH (15:58)
[2018-07-19] MEDS: GUAIFENESIN/CODEINE 100-10MG/5ML UDC PO PRN (15:58)
[2018-07-19 16:30] VITALS: BP 128/78
[2018-07-19] MEDS ORDERED: DIPHENHYDRAMINE 25MG CAPSULE PO SCH (17:00)
[2018-07-19 19:56] VITALS: BP 129/105
[2018-07-19] MEDS: IPRATROPIUM/ALBUTEROL 0.5-3(2.5)MG/3ML NEB HHN SCH (20:34)
[2018-07-19] MEDS: RISPERIDONE 0.5MG TABLET PO SCH (21:51)
[2018-07-19] MEDS ORDERED: DEXTROSE 50% WATER 50ML SYRINGE IV PRN (22:00)
[2018-07-20 00:08] VITALS: BP 107/59
[2018-07-20] MEDS: IPRATROPIUM/ALBUTEROL 0.5-3(2.5)MG/3ML NEB HHN SCH ×6 (00:20→20:28)
[2018-07-20 01:30] LABS: CREATINE KINASE 61 IU/L (26-192)
[2018-07-20 01:31] LABS: CREATINE KINASE MB FRACTION 1.4 ng/mL (0.5-3.6)
[2018-07-20] MEDS: DIPHENHYDRAMINE 50MG/ML VIAL IV PRN ×4 (01:36→20:37)
[2018-07-20] MEDS: HYDROCODONE/ACETAMINOPHEN 10/325MG TABLET PO PRN ×4 (01:37→20:38)
[2018-07-20] MEDS: GUAIFENESIN/CODEINE 100-10MG/5ML UDC PO PRN ×3 (03:04→15:56)
[2018-07-20 03:59] VITALS: BP 107/63
[2018-07-20] MEDS: METHYLPREDNISOLONE SOD SUCC 40 MG/ML VIAL IV SCH ×3 (06:07→21:53)
[2018-07-20] MEDS: BLOOD SUGAR DIAGNOSTIC STRIP TEST SCH ×4 (07:21→20:58)
[2018-07-20 08:00] VITALS: BP 120/76
[2018-07-20] MEDS: INSULIN LISPRO 100 UNITS/ML SUBCUT SCH ×4 (08:06→20:56)
[2018-07-20] MEDS: LEVOFLOXACIN 500MG PREMIX 100 ML IV SCH (08:19)
[2018-07-20 11:20] LABS: HEMOGLOBIN. 8.3 g/dL (12.0-16.0); MEAN CORPUSCULAR HEMOGLOBIN 24.6 pg (28.0-32.0); MEAN CORPUSCULAR VOLUME 83.5 fL (81.0-99.0); MEAN PLATELET VOLUME 7.1 fl (7.4-10.4); PLATELET 357 x1000/uL (130-400); RED BLOOD CELL COUNT 3.36 mill/uL (4.2-5.4); RED CELL DISTRIBUTION WIDTH 20.7 % (11.6-14.6)
[2018-07-20 12:00] VITALS: BP 121/75
[2018-07-20 12:05] LABS: CHLORIDE 100 mEq/L (98-107)
[2018-07-20 12:18] LABS: CREATINE KINASE 45 IU/L (26-192)
[2018-07-20 12:20] LABS: PLATELET ESTIMATE NORMAL
[2018-07-20 12:22] LABS: CREATINE KINASE MB FRACTION 1.2 ng/mL (0.5-3.6)
[2018-07-20] MEDS: ENOXAPARIN 40MG/0.4ML SYR SUBCUT SCH (15:00)
[2018-07-20 16:00] VITALS: BP 107/62
[2018-07-20] MEDS ORDERED: DEXTROSE 50% WATER 50ML SYRINGE IV PRN (17:30)
[2018-07-20 20:00] VITALS: BP 128/77
[2018-07-20] MEDS: RISPERIDONE 0.5MG TABLET PO SCH (20:38)
[2018-07-21] VITALS: BP 116/72
[2018-07-21] MEDS: IPRATROPIUM/ALBUTEROL 0.5-3(2.5)MG/3ML NEB HHN SCH ×6 (00:11→22:03)
[2018-07-21] MEDS: HYDROCODONE/ACETAMINOPHEN 10/325MG TABLET PO PRN ×4 (02:50→20:27)
[2018-07-21] MEDS: DIPHENHYDRAMINE 50MG/ML VIAL IV PRN ×4 (02:50→20:26)
[2018-07-21 04:00] VITALS: BP 124/74
[2018-07-21] MEDS: BLOOD SUGAR DIAGNOSTIC STRIP TEST SCH ×4 (06:36→21:07)
[2018-07-21] MEDS: METHYLPREDNISOLONE SOD SUCC 40 MG/ML VIAL IV SCH ×3 (06:37→22:49)
[2018-07-21 08:00] VITALS: BP 107/61
[2018-07-21] MEDS: INSULIN LISPRO 100 UNITS/ML SUBCUT SCH ×4 (08:32→21:29)
[2018-07-21 12:00] VITALS: BP 122/80
[2018-07-21] MEDS: GUAIFENESIN/CODEINE 100-10MG/5ML UDC PO PRN ×2 (14:31→21:30)
[2018-07-21] MEDS: LEVOFLOXACIN 500MG PREMIX 100 ML IV SCH (14:32)
[2018-07-21] MEDS: ENOXAPARIN 40MG/0.4ML SYR SUBCUT SCH (15:00)
[2018-07-21 16:00] VITALS: BP 116/80
[2018-07-21 20:00] VITALS: BP 116/71
[2018-07-21] MEDS: RISPERIDONE 0.5MG TABLET PO SCH (20:26)
[2018-07-22] VITALS: BP 107/65
[2018-07-22] MEDS: DIPHENHYDRAMINE 50MG/ML VIAL IV PRN ×3 (02:15→14:11)
[2018-07-22] MEDS: HYDROCODONE/ACETAMINOPHEN 10/325MG TABLET PO PRN ×3 (02:17→14:10)
[2018-07-22 04:00] VITALS: BP 99/58
[2018-07-22] MEDS: IPRATROPIUM/ALBUTEROL 0.5-3(2.5)MG/3ML NEB HHN SCH (04:22)
[2018-07-22] MEDS: GUAIFENESIN/CODEINE 100-10MG/5ML UDC PO PRN (04:36)
[2018-07-22] MEDS: METHYLPREDNISOLONE SOD SUCC 40 MG/ML VIAL IV SCH ×2 (05:56→14:10)
[2018-07-22] MEDS: INSULIN LISPRO 100 UNITS/ML SUBCUT SCH (06:08)
[2018-07-22] MEDS: BLOOD SUGAR DIAGNOSTIC STRIP TEST SCH (06:41)
[2018-07-22 08:00] VITALS: BP 109/66
[2018-07-22 12:00] VITALS: BP 115/67
[2018-07-22] MEDS: LEVOFLOXACIN 500MG PREMIX 100 ML IV SCH (14:14)
[2018-07-22 14:19] VITALS: BP 115/67
== END 2018-07-22 15:15 | disposition home or self-care (01) | DRG 140 ==
LOC: ER 07:00 → ENRESERV 09:55 → 6WST 10:15 → EDBEDREQ 10:16 → EDBEDREQTM 10:16 → 6WST 11:49
PROVIDERS: ADMIT Internal Medicine; ATTEND Internal Medicine
DX: J44.1 Chronic obstructive pulmonary disease with (acute) exacerbation (principal); J96.21 Acute and chronic respiratory failure with hypoxia; R65.10 Systemic inflammatory response syndrome (SIRS) of non-infectious origin without acute organ dysfunction; E11.65 Type 2 diabetes mellitus with hyperglycemia; I25.10 Atherosclerotic heart disease of native coronary artery without angina pectoris; F17.210 Nicotine dependence, cigarettes, uncomplicated; G89.29 Other chronic pain; D64.9 Anemia, unspecified; I10 Essential (primary) hypertension; M54.42 Lumbago with sciatica, left side; I25.2 Old myocardial infarction; Z99.81 Dependence on supplemental oxygen; Z87.01 Personal history of pneumonia (recurrent); Z79.891 Long term (current) use of opiate analgesic; Z88.0 Allergy status to penicillin; Z88.6 Allergy status to analgesic agent; Z88.8 Allergy status to other drugs, medicaments and biological substances; Z79.899 Other long term (current) drug therapy; Z91.81 History of falling
CPT/HCPCS: 36415; 36600; 71045; 72100; 73502; 80048; 82375; 82550; 82553; 82805; 82962; 83036; 83880; 84484; 93005; 93970; 94640; 96365; 96375; 99291; C1893; G0482; J1200; J1650; J1815; J1956; J2270; J2405; J2920; J2930; J3475; J7050; J7620

== ENCOUNTER 2018-08-24 05:47 | Inpatient (IN) | payer MEDICAID ==
[~2018-08-24] VITALS: Ht 167.6 cm; Wt 51.3 kg
[~2018-08-24 05:47] MED LIST changes: -ALBU90AE IH; +AZIT500T5 PO; -DIPH25CA83 PO; +GLIP10TA10 PO; -GUAI600T44 PO; +INSLIS SUBCUT; +METF500T PO; +P20 PO; +PULM50 HHN; -S350 PO; -ZOLP6.252 PO
[2018-08-24] MEDS ORDERED: ALBUTEROL (0.083%) 2.5MG/3ML NEB HHN STA (07:03)
[2018-08-24] MEDS ORDERED: METHYLPREDNISOLONE SOD SUCC 125 MG/2 ML VIAL IV STA (07:03)
[2018-08-24] MEDS ORDERED: IPRATROPIUM BROMIDE (0.02%) 0.5MG/2.5ML NEB HHN STA (07:03)
[2018-08-24] MEDS ORDERED: MORPHINE SULFATE 4 MG/ML CPJ (NOT FOR IM USE) IV ONE (07:30)
[2018-08-24] MEDS ORDERED: ONDANSETRON HCL 4MG/2ML INJ IV ONE (07:30)
[2018-08-24 08:22] LABS: BASOPHILS % 0.5 % (0.0-2.0); EOSINOPHILS % 0.4 % (0.0-5.0); HEMATOCRIT. 33.2 % (36.0-48.0); HEMOGLOBIN. 9.5 g/dL (12.0-16.0); LYMPHOCYTES % 11.4 % (20.0-50.0); MEAN CORPUSCULAR HEMOGLOBIN 24.2 pg (28.0-32.0); MEAN CORPUSCULAR VOLUME 84.2 fL (81.0-99.0); MONOCYTES % 5.4 % (2.0-8.0); NEUTROPHILS % 82.3 % (40.0-76.0); PLATELET 749 x1000/uL (130-400); RED BLOOD CELL COUNT 3.94 mill/uL (4.2-5.4)
[2018-08-24 08:29] LABS: CHLORIDE 98 mEq/L (98-107)
[2018-08-24] MEDS ORDERED: LEVOFLOXACIN 750MG PREMIX 150 ML IV STA (08:45)
[2018-08-24 09:05] LABS: PLATELET ESTIMATE INCREASED
[2018-08-24] MEDS ORDERED: SODIUM CHLORIDE 0.9% 1000ML BAG (SEPSIS BOLUS) IV ONE (09:45)
[2018-08-24] MEDS: HYDROCODONE/ACETAMINOPHEN 10/325MG TABLET PO PRN ×3 (11:19→21:20)
[2018-08-24] MEDS ORDERED: ONDANSETRON HCL 4MG/2ML INJ IV PRN (14:00)
[2018-08-24] MEDS ORDERED: DOCUSATE SODIUM 100MG CAPSULE PO PRN (14:00)
[2018-08-24] MEDS: MAGNESIUM 2 G PREMIX 50 ML IV ONE ×2 (14:00→14:32)
[2018-08-24] MEDS ORDERED: LORAZEPAM 0.5MG TABLET PO PRN (14:00)
[2018-08-24] MEDS ORDERED: CLONIDINE 0.1MG TABLET PO PRN (14:00)
[2018-08-24] MEDS: DIPHENHYDRAMINE 25MG CAPSULE PO PRN ×2 (16:58→21:19)
[2018-08-24] MEDS: FLUTICASONE PROPIONATE 50MCG/SPRAY BOTTLE BOTHNSTRLS SCH (21:00)
[2018-08-24] MEDS ORDERED: IPRATROPIUM/ALBUTEROL 0.5-3(2.5)MG/3ML NEB HHN PRN (21:16)
[2018-08-24 22:45] VITALS: BP 133/74
[2018-08-24 23:00] VITALS: BP 133/74
[2018-08-25] VITALS (7 sets, daily range): BP systolic 103–133; BP diastolic 58–77
[2018-08-25] MEDS: IPRATROPIUM/ALBUTEROL 0.5-3(2.5)MG/3ML NEB HHN SCH ×6 (00:45→21:15)
[2018-08-25] MEDS: BUDESONIDE 0.5MG/2ML NEB HHN SCH ×3 (00:46→21:14)
[2018-08-25] MEDS: MONTELUKAST SODIUM 10MG TABLET PO SCH ×3 (01:15→17:49)
[2018-08-25] MEDS: HYDROCODONE/ACETAMINOPHEN 10/325MG TABLET PO PRN ×6 (01:17→21:56)
[2018-08-25] MEDS: PREDNISONE 20MG TABLET PO SCH ×2 (08:33→15:53)
[2018-08-25] MEDS: FLUTICASONE PROPIONATE 50MCG/SPRAY BOTTLE BOTHNSTRLS SCH ×2 (08:33→21:56)
[2018-08-25] MEDS: DIPHENHYDRAMINE 50MG/ML VIAL IV PRN ×3 (10:23→18:07)
[2018-08-25 21:43] LABS: BASOPHILS % 0.5 % (0.0-2.0); EOSINOPHILS % 0.2 % (0.0-5.0); HEMATOCRIT. 26.8 % (36.0-48.0); HEMOGLOBIN. 7.9 g/dL (12.0-16.0); LYMPHOCYTES % 15.8 % (20.0-50.0); MEAN CORPUSCULAR HEMOGLOBIN 24.7 pg (28.0-32.0); MEAN CORPUSCULAR VOLUME 84.1 fL (81.0-99.0); MEAN PLATELET VOLUME 6.7 fl (7.4-10.4); MONOCYTES % 5.7 % (2.0-8.0); NEUTROPHILS % 77.8 % (40.0-76.0); PLATELET 668 x1000/uL (130-400); RED BLOOD CELL COUNT 3.19 mill/uL (4.2-5.4); RED CELL DISTRIBUTION WIDTH 21.6 % (11.6-14.6)
[2018-08-25 21:52] LABS: CHLORIDE 97 mEq/L (98-107)
[2018-08-26] VITALS: BP 112/69
[2018-08-26] MEDS: IPRATROPIUM/ALBUTEROL 0.5-3(2.5)MG/3ML NEB HHN SCH ×6 (00:10→20:50)
[2018-08-26 04:00] VITALS: BP 112/68
[2018-08-26] MEDS: DIPHENHYDRAMINE 50MG/ML VIAL IV PRN ×3 (06:11→18:23)
[2018-08-26] MEDS: BUDESONIDE 0.5MG/2ML NEB HHN SCH ×2 (07:46→20:50)
[2018-08-26] MEDS: FLUTICASONE PROPIONATE 50MCG/SPRAY BOTTLE BOTHNSTRLS SCH ×2 (08:08→20:39)
[2018-08-26] MEDS: PREDNISONE 20MG TABLET PO SCH ×2 (08:08→16:21)
[2018-08-26] MEDS: HYDROCODONE/ACETAMINOPHEN 10/325MG TABLET PO PRN ×4 (08:09→20:30)
[2018-08-26 08:26] VITALS: BP 101/63
[2018-08-26 11:13] VITALS: BP 106/70
[2018-08-26] MEDS: GUAIFENESIN/CODEINE 100-10MG/5ML UDC PO PRN (12:06)
[2018-08-26 15:49] VITALS: BP 115/73
[2018-08-26] MEDS: MONTELUKAST SODIUM 10MG TABLET PO SCH (16:22)
[2018-08-26 17:06] LABS: HEMATOCRIT. 31.1 % (36.0-48.0); HEMOGLOBIN. 8.9 g/dL (12.0-16.0); MEAN CORPUSCULAR HEMOGLOBIN 24.1 pg (28.0-32.0); MEAN CORPUSCULAR VOLUME 84.1 fL (81.0-99.0); MEAN PLATELET VOLUME 6.8 fl (7.4-10.4); PLATELET 678 x1000/uL (130-400); RED CELL DISTRIBUTION WIDTH 21.5 % (11.6-14.6)
[2018-08-26 17:08] LABS: CHLORIDE 98 mEq/L (98-107)
[2018-08-26 17:56] LABS: PLATELET ESTIMATE INCREASED
[2018-08-26 20:00] VITALS: BP 121/70
[2018-08-27] VITALS (7 sets, daily range): BP systolic 106–124; BP diastolic 57–83
[2018-08-27] MEDS: HYDROCODONE/ACETAMINOPHEN 10/325MG TABLET PO PRN ×6 (00:25→20:34)
[2018-08-27] MEDS: DIPHENHYDRAMINE 50MG/ML VIAL IV PRN ×4 (00:26→18:03)
[2018-08-27] MEDS: IPRATROPIUM/ALBUTEROL 0.5-3(2.5)MG/3ML NEB HHN SCH ×6 (04:00→20:48)
[2018-08-27 07:52] LABS: CHLORIDE 98 mEq/L (98-107)
[2018-08-27 07:53] LABS: BASOPHILS % 0.5 % (0.0-2.0); EOSINOPHILS % 0.1 % (0.0-5.0); HEMOGLOBIN. 8.9 g/dL (12.0-16.0); LYMPHOCYTES % 12.4 % (20.0-50.0); MEAN CORPUSCULAR HEMOGLOBIN 24.1 pg (28.0-32.0); MEAN CORPUSCULAR VOLUME 83.9 fL (81.0-99.0); MEAN PLATELET VOLUME 6.5 fl (7.4-10.4); MONOCYTES % 5.7 % (2.0-8.0); NEUTROPHILS % 81.3 % (40.0-76.0); PLATELET 702 x1000/uL (130-400); RED CELL DISTRIBUTION WIDTH 21.5 % (11.6-14.6)
[2018-08-27] MEDS: BUDESONIDE 0.5MG/2ML NEB HHN SCH ×2 (08:11→20:48)
[2018-08-27] MEDS: PREDNISONE 20MG TABLET PO SCH ×2 (08:39→16:16)
[2018-08-27] MEDS: FLUTICASONE PROPIONATE 50MCG/SPRAY BOTTLE BOTHNSTRLS SCH ×2 (08:40→20:36)
[2018-08-27] MEDS: MONTELUKAST SODIUM 10MG TABLET PO SCH (16:16)
[2018-08-27] MEDS ORDERED: ACETAMINOPHEN 325MG TABLET PO SCH (18:00)
[2018-08-27] MEDS ORDERED: ACETAMINOPHEN 325MG TABLET PO PRN (18:15)
[2018-08-27] MEDS ORDERED: DEXTROSE 50% WATER 50ML SYRINGE IV PRN (19:30)
[2018-08-27] MEDS: GUAIFENESIN/CODEINE 100-10MG/5ML UDC PO PRN (20:45)
[2018-08-27] MEDS: BLOOD SUGAR DIAGNOSTIC STRIP TEST SCH (20:45)
[2018-08-27] MEDS: INSULIN LISPRO 100 UNITS/ML SUBCUT SCH (20:53)
[2018-08-28] VITALS (7 sets, daily range): BP systolic 104–112; BP diastolic 61–74
[2018-08-28] MEDS: DIPHENHYDRAMINE 50MG/ML VIAL IV PRN ×4 (00:08→18:20)
[2018-08-28] MEDS: IPRATROPIUM/ALBUTEROL 0.5-3(2.5)MG/3ML NEB HHN SCH ×6 (00:37→19:54)
[2018-08-28] MEDS: HYDROCODONE/ACETAMINOPHEN 10/325MG TABLET PO PRN ×5 (00:50→18:45)
[2018-08-28] MEDS: BLOOD SUGAR DIAGNOSTIC STRIP TEST SCH ×4 (06:50→21:03)
[2018-08-28] MEDS: PREDNISONE 20MG TABLET PO SCH ×2 (08:44→17:31)
[2018-08-28] MEDS: INSULIN LISPRO 100 UNITS/ML SUBCUT SCH ×4 (08:48→22:18)
[2018-08-28 09:11] LABS: BASOPHILS % 0.8 % (0.0-2.0); EOSINOPHILS % 1.3 % (0.0-5.0); HEMATOCRIT. 28.1 % (36.0-48.0); HEMOGLOBIN. 8.2 g/dL (12.0-16.0); LYMPHOCYTES % 10.5 % (20.0-50.0); MEAN CORPUSCULAR HEMOGLOBIN 24.5 pg (28.0-32.0); MEAN CORPUSCULAR VOLUME 83.4 fL (81.0-99.0); MEAN PLATELET VOLUME 6.2 fl (7.4-10.4); MONOCYTES % 4.4 % (2.0-8.0); PLATELET 596 x1000/uL (130-400); RED BLOOD CELL COUNT 3.37 mill/uL (4.2-5.4); RED CELL DISTRIBUTION WIDTH 21.1 % (11.6-14.6)
[2018-08-28 09:22] LABS: CHLORIDE 99 mEq/L (98-107)
[2018-08-28] MEDS: BUDESONIDE 0.5MG/2ML NEB HHN SCH ×2 (09:37→19:54)
[2018-08-28] MEDS: MONTELUKAST SODIUM 10MG TABLET PO SCH (17:32)
[2018-08-28] MEDS ORDERED: SODIUM CHLORIDE 0.9% 500 ML IV ONE (19:15)
[2018-08-28] MEDS: MORPHINE SULFATE 4 MG/ML CPJ (NOT FOR IM USE) IV PRN (22:02)
[2018-08-28] MEDS: LEVOFLOXACIN 500MG TABLET PO SCH (22:26)
[2018-08-29] MEDS: IPRATROPIUM/ALBUTEROL 0.5-3(2.5)MG/3ML NEB HHN SCH ×5 (00:54→16:06)
[2018-08-29] MEDS: DIPHENHYDRAMINE 50MG/ML VIAL IV PRN ×3 (01:20→13:45)
[2018-08-29] MEDS: HYDROCODONE/ACETAMINOPHEN 10/325MG TABLET PO PRN ×4 (03:42→18:28)
[2018-08-29 04:50] VITALS: BP 114/63
[2018-08-29] MEDS: BLOOD SUGAR DIAGNOSTIC STRIP TEST SCH ×3 (06:38→17:10)
[2018-08-29 07:03] LABS: CLARITY URINE CLEAR (CLEAR); COLOR URINE YELLOW (YELLOW); KETONES URINE NEGATIVE (NEGATIVE); LEUKOCYTE ESTERASE URINE 1+ (NEGATIVE); NITRITE URINE NEGATIVE (NEGATIVE); OCCULT BLOOD URINE TRACE (NEGATIVE); PH URINE 7.5 (4.5-8.0); PROTEIN URINE 1+ (NEGATIVE); SPECIFIC GRAVITY URINE 1.024 (1.005-1.030); UROBILINOGEN URINE 0.2 E.U./dL (0.2-1.0)
[2018-08-29] MEDS: PREDNISONE 20MG TABLET PO SCH ×2 (07:46→17:19)
[2018-08-29] MEDS: INSULIN LISPRO 100 UNITS/ML SUBCUT SCH ×3 (07:53→17:22)
[2018-08-29] MEDS: BUDESONIDE 0.5MG/2ML NEB HHN SCH (07:54)
[2018-08-29 08:00] VITALS: BP 99/66
[2018-08-29] MEDS: LEVOFLOXACIN 500MG TABLET PO SCH (11:56)
[2018-08-29 12:00] VITALS: BP 126/73
[2018-08-29] MEDS: MORPHINE SULFATE 4 MG/ML CPJ (NOT FOR IM USE) IV PRN (12:35)
[2018-08-29] MEDS ORDERED: MONT10TA21 PO (15:03)
[2018-08-29] MEDS ORDERED: LEVO500T2 PO (15:03)
[2018-08-29] MEDS ORDERED: MED4 MT (15:03)
[2018-08-29 16:29] VITALS: BP 126/73
[2018-08-29] MEDS: MONTELUKAST SODIUM 10MG TABLET PO SCH (17:19)
[2018-08-29 18:28] VITALS: BP 126/73
== END 2018-08-29 19:00 | disposition home or self-care (01) | DRG 720 ==
LOC: ER 05:47 → 6WST 07:14 → EDBEDREQ 10:00 → ENRESERV 21:21
PROVIDERS: ADMIT Internal Medicine; ATTEND Internal Medicine
DX: A41.9 Sepsis, unspecified organism (principal); J96.20 Acute and chronic respiratory failure, unspecified whether with hypoxia or hypercapnia; I27.21 Secondary pulmonary arterial hypertension; E44.0 Moderate protein-calorie malnutrition; E11.65 Type 2 diabetes mellitus with hyperglycemia; F11.20 Opioid dependence, uncomplicated; J45.901 Unspecified asthma with (acute) exacerbation; J44.1 Chronic obstructive pulmonary disease with (acute) exacerbation; D63.8 Anemia in other chronic diseases classified elsewhere; J44.0 Chronic obstructive pulmonary disease with (acute) lower respiratory infection; G47.00 Insomnia, unspecified; F14.90 Cocaine use, unspecified, uncomplicated; G89.29 Other chronic pain; J31.0 Chronic rhinitis; L30.9 Dermatitis, unspecified; M54.30 Sciatica, unspecified side; N39.0 Urinary tract infection, site not specified; Z72.0 Tobacco use; Z99.81 Dependence on supplemental oxygen; Z68.1 Body mass index [BMI] 19.9 or less, adult; Z88.8 Allergy status to other drugs, medicaments and biological substances; Z88.0 Allergy status to penicillin; Z79.899 Other long term (current) drug therapy; Z79.4 Long term (current) use of insulin
CPT/HCPCS: 36415; 71045; 80048; 82962; 83605; 83880; 84484; 87077; 93005; 94640; 94644; 96365; 96366; 96367; 96375; 99291; C1893; J1200; J1815; J1956; J2270; J2405; J2930; J3475; J7030; J7040; J7512; J7611; J7620; J7626; Q0163

== ENCOUNTER 2018-09-08 14:07 | Inpatient (IN) | payer MEDICAID, OTHER ==
[~2018-09-08] VITALS: Ht 167.6 cm; Wt 52.0 kg
[~2018-09-08 14:07] MED LIST changes: -AZIT500T5 PO; +LEVO500T2 PO; +MED4 MT; +MONT10TA21 PO; -P20 PO; -PULM50 HHN
[2018-09-08] MEDS ORDERED: SODIUM CHLORIDE 0.9% 1000ML BAG (SEPSIS BOLUS) IV ONE (14:30)
[2018-09-08] MEDS ORDERED: IPRATROPIUM BROMIDE (0.02%) 0.5MG/2.5ML NEB HHN STA (14:33)
[2018-09-08] MEDS ORDERED: METHYLPREDNISOLONE SOD SUCC 125 MG/2 ML VIAL IV STA (14:33)
[2018-09-08] MEDS ORDERED: ALBUTEROL (0.083%) 2.5MG/3ML NEB HHN STA (14:33)
[2018-09-08] MEDS ORDERED: MAGNESIUM 2 G PREMIX 50 ML IV ONE (14:45)
[2018-09-08] MEDS ORDERED: ACETAMINOPHEN 325MG TABLET PO ONE (14:45)
[2018-09-08 14:58] LABS: BG BASE EXCESS 4.7 mmol/L (-2.0-2.0); BG CARBOXYHEMOGLOBIN 1.1 % (0.5-1.5); BG DEOXYHEMOGLOBIN 14.7 % (0.0-5.0); BG FRACTION INSPIRED OXYGEN 30; BG HCO3 ACT 29.7 mmol/L (22.0-26.0); BG METHEMOGLOBIN 0.2 % (0.0-1.5); BG OXYGEN SATURATION 85.1 % (92.0-98.5); BG PCO2 46.8 mmHg (35.0-45.0); BG PH 7.421 (7.350-7.450); BG SAMPLE SITE RIGHT BRACHIAL; BG TOTAL HEMOGLOBIN 9.3 g/dL (12.0-18.0); BG VENT MODE NASAL CANNULA
[2018-09-08 15:04] LABS: CHLORIDE 98 mEq/L (98-107)
[2018-09-08 15:14] LABS: BASOPHILS % 1.2 % (0.0-2.0); EOSINOPHILS % 0.7 % (0.0-5.0); HEMATOCRIT. 28.2 % (36.0-48.0); HEMOGLOBIN. 8.2 g/dL (12.0-16.0); LYMPHOCYTES % 14.5 % (20.0-50.0); MEAN CORPUSCULAR HEMOGLOBIN 24.2 pg (28.0-32.0); MEAN CORPUSCULAR VOLUME 82.9 fL (81.0-99.0); MEAN PLATELET VOLUME 7.4 fl (7.4-10.4); MONOCYTES % 5.5 % (2.0-8.0); NEUTROPHILS % 78.1 % (40.0-76.0); PLATELET 670 x1000/uL (130-400); RED CELL DISTRIBUTION WIDTH 21.4 % (11.6-14.6)
[2018-09-08] MEDS ORDERED: CEFTRIAXONE 1 G PREMIX 50 ML IV STA (16:00)
[2018-09-08] MEDS ORDERED: FENTANYL CITRATE/PF 50MCG/ML 2ML VIAL IV ONE (16:00)
[2018-09-08] MEDS ORDERED: AZITHROMYCIN 500 MG in DEXT 5% WATER 250 ML IV STA (16:00)
[2018-09-08 16:11] LABS: PROTHROMBIN TIME 10.2 sec (9.1-11.1)
[2018-09-08 16:49] LABS: CLARITY URINE CLEAR (CLEAR); COLOR URINE YELLOW (YELLOW); KETONES URINE NEGATIVE (NEGATIVE); LEUKOCYTE ESTERASE URINE 1+ (NEGATIVE); NITRITE URINE NEGATIVE (NEGATIVE); OCCULT BLOOD URINE 3+ (NEGATIVE); PH URINE 6.5 (4.5-8.0); PROTEIN URINE 1+ (NEGATIVE); SPECIFIC GRAVITY URINE 1.023 (1.005-1.030); UROBILINOGEN URINE 0.2 E.U./dL (0.2-1.0)
[2018-09-08] MEDS: HYDROCODONE/ACETAMINOPHEN 5/325MG TABLET PO PRN (21:12)
[2018-09-09] VITALS: BP_SYST 112; BP_SYST 174; BP_DIAS 100; BP_DIAS 49
[2018-09-09] MEDS ORDERED: ONDANSETRON HCL 4MG/2ML INJ IV PRN
[2018-09-09] MEDS ORDERED: DEXTROSE 50% WATER 50ML SYRINGE IV PRN
[2018-09-09] MEDS: HYDROCODONE/ACETAMINOPHEN 10/325MG TABLET PO PRN ×4 (00:15→20:07)
[2018-09-09] MEDS: DIPHENHYDRAMINE 50MG/ML VIAL IV PRN ×4 (00:15→18:25)
[2018-09-09] MEDS ORDERED: ACETAMINOPHEN 650MG/20.3ML UDC PO PRN (00:15)
[2018-09-09] MEDS ORDERED: AZITHROMYCIN 500 MG in DEXT 5% WATER 250 ML IV SCH (00:45)
[2018-09-09] MEDS ORDERED: CEFTRIAXONE 1 G PREMIX 50 ML IV SCH (00:45)
[2018-09-09] MEDS: IPRATROPIUM/ALBUTEROL 0.5-3(2.5)MG/3ML NEB HHN SCH ×6 (00:56→21:19)
[2018-09-09 01:03] VITALS: BP 112/54
[2018-09-09] MEDS: METHYLPREDNISOLONE SOD SUCC 40 MG/ML VIAL IV SCH ×3 (02:31→18:25)
[2018-09-09 04:00] VITALS: BP 120/60
[2018-09-09] MEDS: BLOOD SUGAR DIAGNOSTIC STRIP TEST SCH ×4 (06:21→21:00)
[2018-09-09] MEDS: INSULIN LISPRO 100 UNITS/ML SUBCUT SCH ×4 (06:27→22:45)
[2018-09-09 08:00] VITALS: BP 117/65
[2018-09-09] MEDS: ENOXAPARIN 40MG/0.4ML SYR SUBCUT SCH ×2 (09:00→09:01)
[2018-09-09 09:18] LABS: BASOPHILS % 0.4 % (0.0-2.0); HEMATOCRIT. 27.2 % (36.0-48.0); HEMOGLOBIN. 7.9 g/dL (12.0-16.0); LYMPHOCYTES % 9.9 % (20.0-50.0); MEAN CORPUSCULAR HEMOGLOBIN 24.2 pg (28.0-32.0); MEAN CORPUSCULAR VOLUME 83.6 fL (81.0-99.0); MEAN PLATELET VOLUME 7.7 fl (7.4-10.4); MONOCYTES % 2.1 % (2.0-8.0); NEUTROPHILS % 87.6 % (40.0-76.0); PLATELET 588 x1000/uL (130-400); RED BLOOD CELL COUNT 3.25 mill/uL (4.2-5.4); RED CELL DISTRIBUTION WIDTH 20.8 % (11.6-14.6)
[2018-09-09 11:07] LABS: CHLORIDE 100 mEq/L (98-107)
[2018-09-09] MEDS ORDERED: ENOXAPARIN 40MG/0.4ML SYR SUBCUT SCH (14:15)
[2018-09-09 16:00] VITALS: BP 99/81
[2018-09-09] MEDS: AZITHROMYCIN 500 MG in DEXT 5% WATER 250 ML IV SCH ×2 (16:00→16:13)
[2018-09-09] MEDS: CEFTRIAXONE 1 G PREMIX 50 ML IV SCH ×2 (16:14→16:34)
[2018-09-09 20:00] VITALS: BP 111/68
[2018-09-10] VITALS: BP 103/58
[2018-09-10] MEDS: DIPHENHYDRAMINE 50MG/ML VIAL IV PRN ×4 (00:30→19:17)
[2018-09-10] MEDS: IPRATROPIUM/ALBUTEROL 0.5-3(2.5)MG/3ML NEB HHN SCH ×8 (00:55→23:44)
[2018-09-10] MEDS: HYDROCODONE/ACETAMINOPHEN 10/325MG TABLET PO PRN ×2 (02:16→17:27)
[2018-09-10] MEDS: METHYLPREDNISOLONE SOD SUCC 40 MG/ML VIAL IV SCH ×2 (02:16→10:12)
[2018-09-10 04:00] VITALS: BP 102/58
[2018-09-10] MEDS: BLOOD SUGAR DIAGNOSTIC STRIP TEST SCH ×4 (06:43→21:28)
[2018-09-10] MEDS: INSULIN LISPRO 100 UNITS/ML SUBCUT SCH ×4 (06:57→21:35)
[2018-09-10 08:00] VITALS: BP 107/64
[2018-09-10] MEDS: HYDROCODONE/ACETAMINOPHEN 5/325MG TABLET PO PRN ×3 (08:52→21:25)
[2018-09-10] MEDS: ENOXAPARIN 40MG/0.4ML SYR SUBCUT SCH (09:00)
[2018-09-10 12:00] VITALS: BP 120/69
[2018-09-10] MEDS: AZITHROMYCIN 500 MG in DEXT 5% WATER 250 ML IV SCH (15:09)
[2018-09-10 16:00] VITALS: BP 103/61
[2018-09-10] MEDS ORDERED: INSULIN REGULAR (HUMULIN R) 300UNITS/3ML SUBCUT NR (17:30)
[2018-09-10] MEDS: CEFTRIAXONE 1 G PREMIX 50 ML IV SCH (17:33)
[2018-09-10] MEDS ORDERED: INSULIN LISPRO 100 UNITS/ML SUBCUT NR (18:00)
[2018-09-10 20:00] VITALS: BP 127/75
[2018-09-11] VITALS: BP 99/65
[2018-09-11] MEDS: METHYLPREDNISOLONE SOD SUCC 40 MG/ML VIAL IV SCH ×3 (01:09→19:38)
[2018-09-11] MEDS: HYDROCODONE/ACETAMINOPHEN 10/325MG TABLET PO PRN ×3 (01:10→22:29)
[2018-09-11] MEDS: DIPHENHYDRAMINE 50MG/ML VIAL IV PRN ×3 (01:10→19:29)
[2018-09-11] MEDS: IPRATROPIUM/ALBUTEROL 0.5-3(2.5)MG/3ML NEB HHN SCH ×5 (02:58→20:16)
[2018-09-11 04:00] VITALS: BP 121/71
[2018-09-11] MEDS: BLOOD SUGAR DIAGNOSTIC STRIP TEST SCH ×4 (06:02→21:28)
[2018-09-11] MEDS: HYDROCODONE/ACETAMINOPHEN 5/325MG TABLET PO PRN ×3 (06:10→18:25)
[2018-09-11] MEDS: INSULIN LISPRO 100 UNITS/ML SUBCUT SCH ×4 (06:10→21:28)
[2018-09-11 07:41] LABS: CHLORIDE 96 mEq/L (98-107)
[2018-09-11 08:00] VITALS: BP 95/56
[2018-09-11] MEDS: ENOXAPARIN 40MG/0.4ML SYR SUBCUT SCH (08:23)
[2018-09-11 12:00] VITALS: BP 108/56
[2018-09-11 16:00] VITALS: BP 97/58
[2018-09-11] MEDS: AZITHROMYCIN 500 MG in DEXT 5% WATER 250 ML IV SCH (16:00)
[2018-09-11] MEDS: CEFTRIAXONE 1 G PREMIX 50 ML IV SCH (19:35)
[2018-09-11 20:00] VITALS: BP 109/29
[2018-09-12] VITALS: BP 109/55
[2018-09-12] MEDS: IPRATROPIUM/ALBUTEROL 0.5-3(2.5)MG/3ML NEB HHN SCH ×5 (00:17→17:14)
[2018-09-12] MEDS: METHYLPREDNISOLONE SOD SUCC 40 MG/ML VIAL IV SCH ×3 (01:27→17:31)
[2018-09-12] MEDS: DIPHENHYDRAMINE 50MG/ML VIAL IV PRN ×3 (01:29→13:43)
[2018-09-12] MEDS: HYDROCODONE/ACETAMINOPHEN 5/325MG TABLET PO PRN ×2 (02:41→16:23)
[2018-09-12 04:00] VITALS: BP 102/53
[2018-09-12] MEDS: HYDROCODONE/ACETAMINOPHEN 10/325MG TABLET PO PRN ×2 (06:39→12:30)
[2018-09-12] MEDS: BLOOD SUGAR DIAGNOSTIC STRIP TEST SCH ×4 (06:41→17:40)
[2018-09-12] MEDS ORDERED: INSULIN LISPRO 100 UNITS/ML SUBCUT NR (07:00)
[2018-09-12] MEDS: INSULIN LISPRO 100 UNITS/ML SUBCUT SCH ×4 (07:05→17:46)
[2018-09-12] MEDS ORDERED: INSULIN LISPRO 100 UNITS/ML SUBCUT SCH (07:15)
[2018-09-12 08:00] VITALS: BP 99/60
[2018-09-12] MEDS: ENOXAPARIN 40MG/0.4ML SYR SUBCUT SCH (10:15)
[2018-09-12 12:00] VITALS: BP 99/65
[2018-09-12 16:00] VITALS: BP 100/70
[2018-09-12] MEDS: AZITHROMYCIN 500 MG in DEXT 5% WATER 250 ML IV SCH (16:00)
[2018-09-12] MEDS: CEFTRIAXONE 1 G PREMIX 50 ML IV SCH (17:00)
[2018-09-12 18:10] VITALS: BP 122/85
== END 2018-09-12 18:46 | disposition home or self-care (01) | DRG 140 ==
LOC: ER 14:07 → 5WST 17:08 → EDBEDREQ 17:10 → EDBEDREQTM 17:10 → ENRESERV 21:49
PROVIDERS: ADMIT Internal Medicine; ATTEND Internal Medicine
DX: J44.1 Chronic obstructive pulmonary disease with (acute) exacerbation (principal); J96.21 Acute and chronic respiratory failure with hypoxia; Z99.81 Dependence on supplemental oxygen; E11.65 Type 2 diabetes mellitus with hyperglycemia; G89.29 Other chronic pain; F17.210 Nicotine dependence, cigarettes, uncomplicated; M54.5 Low back pain; I10 Essential (primary) hypertension; Z88.0 Allergy status to penicillin; Z88.6 Allergy status to analgesic agent; Z88.8 Allergy status to other drugs, medicaments and biological substances; Z79.4 Long term (current) use of insulin; Z79.899 Other long term (current) drug therapy; E44.1 Mild protein-calorie malnutrition
CPT/HCPCS: 36415; 36600; 71045; 80048; 82375; 82805; 82962; 83605; 83880; 84145; 84484; 87804; 93005; 94640; 94644; 96365; 96366; 96367; 96368; 96375; 99291; C1893; J0456; J0696; J1200; J1650; J1815; J2920; J2930; J3010; J3475; J7030; J7040; J7050; J7060; J7611; J7620

== ENCOUNTER 2018-09-26 10:25 | Inpatient (IN) | payer OTHER ==
[~2018-09-26] VITALS: Ht 167.6 cm; Wt 47.6 kg
[~2018-09-26 10:25] MED LIST changes: -GLIP10TA10 PO; -INSLIS SUBCUT; -LEVO500T2 PO; -MED4 MT; -METF500T PO
[2018-09-26] MEDS ORDERED: ALBUTEROL (0.083%) 2.5MG/3ML NEB HHN STA (10:47)
[2018-09-26] MEDS ORDERED: METHYLPREDNISOLONE SOD SUCC 125 MG/2 ML VIAL IV STA (10:47)
[2018-09-26] MEDS ORDERED: LEVOFLOXACIN 750MG PREMIX 150 ML IV ONE (12:30)
[2018-09-26] MEDS ORDERED: FENTANYL CITRATE/PF 50MCG/ML 2ML VIAL IV ONE (12:30)
[2018-09-26 12:46] LABS: CHLORIDE 98 mEq/L (98-107)
[2018-09-26 12:48] LABS: LYMPHOCYTES % 12.5 % (20.0-50.0); MEAN CORPUSCULAR HEMOGLOBIN 25.1 pg (28.0-32.0); MEAN CORPUSCULAR VOLUME 82.9 fL (81.0-99.0); MEAN PLATELET VOLUME 6.8 fl (7.4-10.4); MONOCYTES % 3.8 % (2.0-8.0); NEUTROPHILS % 81.7 % (40.0-76.0); PLATELET 470 x1000/uL (130-400); RED BLOOD CELL COUNT 3.98 mill/uL (4.2-5.4); RED CELL DISTRIBUTION WIDTH 18.6 % (11.6-14.6)
[2018-09-26] MEDS ORDERED: HYDROCODONE/ACETAMINOPHEN 5/325MG TABLET PO ONE (15:15)
[2018-09-26] MEDS ORDERED: MAGNESIUM/ALUMINUM HYDROXIDE/SIMETHICONE 30ML UDC PO PRN (15:45)
[2018-09-26] MEDS ORDERED: ONDANSETRON HCL 4MG/2ML INJ IV PRN (15:45)
[2018-09-26] MEDS ORDERED: CLONIDINE 0.1MG TABLET PO PRN (15:45)
[2018-09-26] MEDS ORDERED: IPRATROPIUM/ALBUTEROL 0.5-3(2.5)MG/3ML NEB INH PRN (15:45)
[2018-09-26] MEDS ORDERED: PANTOPRAZOLE 40MG DR TABLET PO SCH (15:45)
[2018-09-26] MEDS ORDERED: GUAIFENESIN 200MG/10ML SUGAR FREE UDC PO PRN (15:45)
[2018-09-26] MEDS ORDERED: ACETAMINOPHEN 325MG TABLET PO PRN (15:45)
[2018-09-26] MEDS ORDERED: DOCUSATE SODIUM 100MG CAPSULE PO PRN (15:45)
[2018-09-26 16:09] LABS: BG DEOXYHEMOGLOBIN 3.6 % (0.0-5.0); BG FRACTION INSPIRED OXYGEN 32; BG HCO3 ACT 31.8 mmol/L (22.0-26.0); BG METHEMOGLOBIN 0.3 % (0.0-1.5); BG OXYGEN SATURATION 96.4 % (92.0-98.5); BG OXYHEMOGLOBIN 95.1 % (94.0-97.0); BG PCO2 58.3 mmHg (35.0-45.0); BG PH 7.354 (7.350-7.450); BG PO2 87.5 mmHg (75.0-100.0); BG SAMPLE SITE RIGHT BRACHIAL; BG TOTAL HEMOGLOBIN 10.5 g/dL (12.0-18.0); BG VENT MODE NASAL CANNULA
[2018-09-26 17:00] VITALS: BP 114/64
[2018-09-26 17:10] LABS: CLARITY URINE CLEAR (CLEAR); COLOR URINE YELLOW (YELLOW); KETONES URINE NEGATIVE (NEGATIVE); LEUKOCYTE ESTERASE URINE NEGATIVE (NEGATIVE); NITRITE URINE NEGATIVE (NEGATIVE); OCCULT BLOOD URINE NEGATIVE (NEGATIVE); PROTEIN URINE NEGATIVE (NEGATIVE); UROBILINOGEN URINE 0.2 E.U./dL (0.2-1.0)
[2018-09-26 17:30] VITALS: BP 126/86
[2018-09-26 17:31] LABS: *AMPHETAMINES SCREEN URINE NEGATIVE (NEGATIVE); *BARBITURATES SCREEN URINE NEGATIVE (NEGATIVE); *BENZODIAZEPINES SCREEN URINE NEGATIVE (NEGATIVE); *COCAINE SCREEN URINE NEGATIVE (NEGATIVE); METHADONE URINE SCREEN NEGATIVE (NEGATIVE); OPIATES URINE SCREEN PRESUMTIVE POSITIVE (NEGATIVE)
[2018-09-26 17:32] LABS: CANNABINOID URINE SCREEN NEGATIVE (NEGATIVE); PHENCYCLIDINE URINE SCREEN NEGATIVE (NEGATIVE)
[2018-09-26] MEDS: HYDROCODONE/ACETAMINOPHEN 10/325MG TABLET PO PRN ×2 (18:47→22:51)
[2018-09-26] MEDS: METHYLPREDNISOLONE SOD SUCC 40 MG/ML VIAL IV SCH (19:00)
[2018-09-26 19:51] LABS: CHLORIDE 99 mEq/L (98-107)
[2018-09-26 20:00] VITALS: BP 123/73
[2018-09-26] MEDS: BUDESONIDE 0.5MG/2ML NEB HHN SCH (20:02)
[2018-09-26] MEDS: IPRATROPIUM/ALBUTEROL 0.5-3(2.5)MG/3ML NEB INH SCH ×2 (20:02→23:46)
[2018-09-26] MEDS ORDERED: DIPHENHYDRAMINE 25MG CAPSULE PO PRN (20:45)
[2018-09-26] MEDS: ENOXAPARIN 40MG/0.4ML SYR SUBCUT SCH (20:59)
[2018-09-26 23:51] VITALS: BP 113/67
[2018-09-27] MEDS: HYDROCODONE/ACETAMINOPHEN 10/325MG TABLET PO PRN ×5 (02:59→20:14)
[2018-09-27 04:00] VITALS: BP 125/73
[2018-09-27] MEDS: METHYLPREDNISOLONE SOD SUCC 40 MG/ML VIAL IV SCH ×3 (04:04→20:14)
[2018-09-27] MEDS: IPRATROPIUM/ALBUTEROL 0.5-3(2.5)MG/3ML NEB INH SCH ×6 (04:11→23:49)
[2018-09-27] MEDS: BUDESONIDE 0.5MG/2ML NEB HHN SCH ×2 (07:44→20:07)
[2018-09-27 08:00] VITALS: BP 104/63
[2018-09-27] MEDS: FAMOTIDINE 20MG TABLET PO SCH ×2 (09:27→16:10)
[2018-09-27 10:59] LABS: HEMATOCRIT. 31.4 % (36.0-48.0); HEMOGLOBIN. 9.4 g/dL (12.0-16.0); MEAN CORPUSCULAR VOLUME 83.5 fL (81.0-99.0); MEAN PLATELET VOLUME 7.3 fl (7.4-10.4); PLATELET 442 x1000/uL (130-400); RED BLOOD CELL COUNT 3.77 mill/uL (4.2-5.4); RED CELL DISTRIBUTION WIDTH 18.5 % (11.6-14.6)
[2018-09-27] MEDS ORDERED: GADOBENATE DIMEGLUMINE 529 MG/ML 10ML IV ONE (11:02)
[2018-09-27 11:23] LABS: LDL CHOLESTEROL 87 mg/dL (5-100)
[2018-09-27 11:24] LABS: CREATINE KINASE 45 IU/L (26-192); HDL CHOLESTEROL 56 mg/dL (40-59)
[2018-09-27 11:27] LABS: CREATINE KINASE MB FRACTION 1.9 ng/mL (0.5-3.6)
[2018-09-27 12:00] VITALS: BP 104/63
[2018-09-27 12:15] LABS: PLATELET ESTIMATE INCREASED
[2018-09-27] MEDS: DIPHENHYDRAMINE 50MG/ML VIAL IV PRN ×2 (14:53→20:57)
[2018-09-27] MEDS: LEVOFLOXACIN 500MG PREMIX 100 ML IV SCH (14:53)
[2018-09-27 16:00] VITALS: BP 102/70
[2018-09-27 20:00] VITALS: BP 114/60
[2018-09-27] MEDS: ENOXAPARIN 40MG/0.4ML SYR SUBCUT SCH (20:18)
[2018-09-27] MEDS ORDERED: DEXTROSE 50% WATER 50ML SYRINGE IV PRN (21:44)
[2018-09-27] MEDS: BLOOD SUGAR DIAGNOSTIC STRIP TEST SCH (21:57)
[2018-09-27] MEDS: INSULIN LISPRO 100 UNITS/ML SUBCUT SCH (22:06)
[2018-09-28] VITALS: BP 106/61
[2018-09-28] MEDS: HYDROCODONE/ACETAMINOPHEN 10/325MG TABLET PO PRN ×6 (00:15→21:40)
[2018-09-28] MEDS: METHYLPREDNISOLONE SOD SUCC 40 MG/ML VIAL IV SCH ×3 (03:02→21:32)
[2018-09-28] MEDS: DIPHENHYDRAMINE 50MG/ML VIAL IV PRN ×4 (03:02→21:32)
[2018-09-28] MEDS: IPRATROPIUM/ALBUTEROL 0.5-3(2.5)MG/3ML NEB INH SCH ×4 (03:47→20:53)
[2018-09-28 04:00] VITALS: BP 99/69
[2018-09-28] MEDS: BLOOD SUGAR DIAGNOSTIC STRIP TEST SCH ×4 (05:55→21:58)
[2018-09-28] MEDS: INSULIN LISPRO 100 UNITS/ML SUBCUT SCH ×4 (06:20→21:00)
[2018-09-28 08:00] VITALS: BP 107/61
[2018-09-28] MEDS: BUDESONIDE 0.5MG/2ML NEB HHN SCH ×2 (08:10→20:53)
[2018-09-28] MEDS: FAMOTIDINE 20MG TABLET PO SCH ×2 (08:35→17:53)
[2018-09-28 09:26] LABS: HEMATOCRIT. 30.7 % (36.0-48.0); HEMOGLOBIN. 9.3 g/dL (12.0-16.0); MEAN CORPUSCULAR VOLUME 82.3 fL (81.0-99.0); MEAN PLATELET VOLUME 6.9 fl (7.4-10.4); PLATELET 444 x1000/uL (130-400); RED BLOOD CELL COUNT 3.73 mill/uL (4.2-5.4); RED CELL DISTRIBUTION WIDTH 18.6 % (11.6-14.6)
[2018-09-28 09:52] LABS: CHLORIDE 99 mEq/L (98-107)
[2018-09-28 11:48] LABS: PLATELET ESTIMATE INCREASED
[2018-09-28 12:00] VITALS: BP 108/62
[2018-09-28] MEDS: LEVOFLOXACIN 500MG PREMIX 100 ML IV SCH (12:43)
[2018-09-28 16:00] VITALS: BP 119/68
[2018-09-28] MEDS ORDERED: FLUT1DIS3 INH (16:42)
[2018-09-28] MEDS ORDERED: ALBU6.7H9 INH (16:42)
[2018-09-28 20:00] VITALS: BP 120/95
[2018-09-28] MEDS ORDERED: INSULIN GLARGINE UD 100 UNITS/ML SYR SUBCUT NR (20:00)
[2018-09-28] MEDS: ENOXAPARIN 40MG/0.4ML SYR SUBCUT SCH (21:32)
[2018-09-29] VITALS: BP 139/75
[2018-09-29] MEDS: IPRATROPIUM/ALBUTEROL 0.5-3(2.5)MG/3ML NEB INH SCH ×5 (01:39→20:33)
[2018-09-29] MEDS: HYDROCODONE/ACETAMINOPHEN 10/325MG TABLET PO PRN ×5 (01:41→19:52)
[2018-09-29] MEDS: DIPHENHYDRAMINE 50MG/ML VIAL IV PRN ×4 (03:39→22:03)
[2018-09-29] MEDS: METHYLPREDNISOLONE SOD SUCC 40 MG/ML VIAL IV SCH (03:45)
[2018-09-29 04:00] VITALS: BP 111/60
[2018-09-29] MEDS: BLOOD SUGAR DIAGNOSTIC STRIP TEST SCH ×4 (06:23→21:00)
[2018-09-29] MEDS: INSULIN LISPRO 100 UNITS/ML SUBCUT SCH ×4 (06:44→22:05)
[2018-09-29 08:00] VITALS: BP 105/61
[2018-09-29] MEDS: BUDESONIDE 0.5MG/2ML NEB HHN SCH ×2 (08:15→20:33)
[2018-09-29] MEDS: FAMOTIDINE 20MG TABLET PO SCH ×2 (09:24→18:11)
[2018-09-29] MEDS ORDERED: METF-414 MT (11:22)
[2018-09-29 12:00] VITALS: BP 112/71
[2018-09-29] MEDS: PREDNISONE 20MG TABLET PO SCH (12:40)
[2018-09-29] MEDS: LEVOFLOXACIN 500MG PREMIX 100 ML IV SCH (13:30)
[2018-09-29] MEDS: INSULIN GLARGINE UD 100 UNITS/ML SYR SUBCUT SCH ×2 (14:16→22:05)
[2018-09-29 16:00] VITALS: BP 118/69
[2018-09-29 17:06] LABS: HEMATOCRIT. 30.5 % (36.0-48.0); HEMOGLOBIN. 9.3 g/dL (12.0-16.0); MEAN CORPUSCULAR HEMOGLOBIN 24.9 pg (28.0-32.0); MEAN CORPUSCULAR VOLUME 82.2 fL (81.0-99.0); MEAN PLATELET VOLUME 7.1 fl (7.4-10.4); PLATELET 466 x1000/uL (130-400); RED BLOOD CELL COUNT 3.71 mill/uL (4.2-5.4); RED CELL DISTRIBUTION WIDTH 18.8 % (11.6-14.6)
[2018-09-29 17:18] LABS: CHLORIDE 96 mEq/L (98-107)
[2018-09-29 17:49] LABS: PLATELET ESTIMATE INCREASED
[2018-09-29 20:00] VITALS: BP 102/64
[2018-09-29] MEDS: ENOXAPARIN 40MG/0.4ML SYR SUBCUT SCH (21:00)
[2018-09-30] VITALS: BP 101/71
[2018-09-30] MEDS: IPRATROPIUM/ALBUTEROL 0.5-3(2.5)MG/3ML NEB INH SCH ×5 (00:56→15:56)
[2018-09-30] MEDS: DIPHENHYDRAMINE 50MG/ML VIAL IV PRN ×3 (04:00→16:33)
[2018-09-30] MEDS: BLOOD SUGAR DIAGNOSTIC STRIP TEST SCH ×3 (05:11→17:17)
[2018-09-30] MEDS: INSULIN LISPRO 100 UNITS/ML SUBCUT SCH ×3 (08:30→17:17)
[2018-09-30] MEDS: BUDESONIDE 0.5MG/2ML NEB HHN SCH (09:00)
[2018-09-30] MEDS: PREDNISONE 20MG TABLET PO SCH (09:14)
[2018-09-30] MEDS: FAMOTIDINE 20MG TABLET PO SCH ×2 (09:14→16:33)
[2018-09-30] MEDS ORDERED: HYDROCODONE/ACETAMINOPHEN 5/325MG TABLET PO NR (09:30)
[2018-09-30] MEDS ORDERED: HYDROCODONE/ACETAMINOPHEN 5/325MG TABLET PO PRN (10:15)
[2018-09-30] MEDS: INSULIN GLARGINE UD 100 UNITS/ML SYR SUBCUT SCH (10:39)
[2018-09-30] MEDS ORDERED: MED4 MT (10:50)
[2018-09-30] MEDS ORDERED: BENZ-16 MT (10:50)
[2018-09-30] MEDS: LEVOFLOXACIN 500MG PREMIX 100 ML IV SCH (13:30)
[2018-09-30 16:00] VITALS: BP 110/60
[2018-09-30 18:13] VITALS: BP 120/64
== END 2018-09-30 18:45 | disposition home or self-care (01) | DRG 140 ==
LOC: ER 10:45 → 5WST 13:34 → EDBEDREQSVC 13:42 → EDBEDREQTM 13:42 → EDBEDREQ 13:42 → ENRESERV 15:26 → 8WST 09-28 18:11
PROVIDERS: ADMIT Internal Medicine; ATTEND Internal Medicine
DX: J44.1 Chronic obstructive pulmonary disease with (acute) exacerbation (principal); J96.21 Acute and chronic respiratory failure with hypoxia; J18.1 Lobar pneumonia, unspecified organism; Z99.81 Dependence on supplemental oxygen; E44.0 Moderate protein-calorie malnutrition; D50.0 Iron deficiency anemia secondary to blood loss (chronic); F17.210 Nicotine dependence, cigarettes, uncomplicated; G47.00 Insomnia, unspecified; R73.9 Hyperglycemia, unspecified; N95.0 Postmenopausal bleeding; J44.0 Chronic obstructive pulmonary disease with (acute) lower respiratory infection; L30.9 Dermatitis, unspecified; J96.22 Acute and chronic respiratory failure with hypercapnia; M54.30 Sciatica, unspecified side; I10 Essential (primary) hypertension; I25.10 Atherosclerotic heart disease of native coronary artery without angina pectoris; R19.00 Intra-abdominal and pelvic swelling, mass and lump, unspecified site; T38.0X5A Adverse effect of glucocorticoids and synthetic analogues, initial encounter; Y92.89 Other specified places as the place of occurrence of the external cause; I25.2 Old myocardial infarction; Z79.51 Long term (current) use of inhaled steroids; Z79.899 Other long term (current) drug therapy; Z88.1 Allergy status to other antibiotic agents; Z68.1 Body mass index [BMI] 19.9 or less, adult; Z88.0 Allergy status to penicillin; Z79.84 Long term (current) use of oral hypoglycemic drugs
CPT/HCPCS: 36415; 36600; 71045; 72197; 74176; 80048; 80061; 80305; 82010; 82375; 82378; 82550; 82553; 82805; 82962; 83735; 84443; 84484; 86301; 86304; 87804; 93005; 93970; 94640; 96374; 96375; 97162; 97165; 99285; A9577; C1893; J1200; J1650; J1815; J1956; J2920; J2930; J3010; J7050; J7512; J7611; J7620; J7626; Q0163

== ENCOUNTER 2018-10-24 08:32 | Inpatient (IN) | payer MEDICAID, OTHER ==
[~2018-10-24] VITALS: Ht 162.6 cm; Wt 53.2 kg
[~2018-10-24 08:32] MED LIST changes: +ALBU6.7H9 INH; +BENZ-16 MT; +FLUT1DIS3 INH; +MED4 MT; +METF-414 MT
[2018-10-24] MEDS ORDERED: ALBUTEROL (0.083%) 2.5MG/3ML NEB HHN ONE (09:45)
[2018-10-24] MEDS ORDERED: IPRATROPIUM BROMIDE (0.02%) 0.5MG/2.5ML NEB HHN ONE (09:45)
[2018-10-24] MEDS ORDERED: PREDNISONE 20MG TABLET PO ONE (09:45)
[2018-10-24 09:56] LABS: CHLORIDE 105 mEq/L (98-107)
[2018-10-24 11:09] LABS: BASOPHILS % 1.3 % (0.0-2.0); EOSINOPHILS % 1.6 % (0.0-5.0); HEMATOCRIT. 34.1 % (36.0-48.0); HEMOGLOBIN. 10.4 g/dL (12.0-16.0); LYMPHOCYTES % 13.3 % (20.0-50.0); MEAN CORPUSCULAR HEMOGLOBIN 26.1 pg (28.0-32.0); MEAN CORPUSCULAR VOLUME 85.8 fL (81.0-99.0); MEAN PLATELET VOLUME 6.9 fl (7.4-10.4); MONOCYTES % 5.4 % (2.0-8.0); NEUTROPHILS % 78.4 % (40.0-76.0); PLATELET 542 x1000/uL (130-400); RED BLOOD CELL COUNT 3.98 mill/uL (4.2-5.4); RED CELL DISTRIBUTION WIDTH 19.5 % (11.6-14.6)
[2018-10-24] MEDS ORDERED: HYDROCODONE/ACETAMINOPHEN 10/325MG TABLET PO ONE (12:00)
[2018-10-24] MEDS ORDERED: ACETAMINOPHEN 325MG TABLET PO PRN (12:45)
[2018-10-24] MEDS ORDERED: CLONIDINE 0.1MG TABLET PO PRN (12:45)
[2018-10-24] MEDS ORDERED: ONDANSETRON HCL 4MG/2ML INJ IV PRN (12:45)
[2018-10-24 13:30] VITALS: BP 141/87
[2018-10-24] MEDS: ENOXAPARIN 40MG/0.4ML SYR SUBCUT SCH (13:30)
[2018-10-24] MEDS ORDERED: POTASSIUM CHLORIDE 20MEQ TABLET SR PO NR ×2 (13:37→18:12)
[2018-10-24] MEDS ORDERED: DIPHENHYDRAMINE 50MG CAPSULE PO PRN (13:45)
[2018-10-24] MEDS ORDERED: IPRATROPIUM/ALBUTEROL 0.5-3(2.5)MG/3ML NEB INH PRN (14:00)
[2018-10-24] MEDS: DIPHENHYDRAMINE 50MG/ML VIAL IV PRN ×2 (14:17→20:19)
[2018-10-24] MEDS: HYDROMORPHONE HCL/PF 2MG/ML CPJ IV PRN ×2 (15:16→21:29)
[2018-10-24] MEDS ORDERED: AZITHROMYCIN 500 MG TABLET PO NR (15:30)
[2018-10-24 16:00] VITALS: BP 124/82
[2018-10-24] MEDS: METHYLPREDNISOLONE SOD SUCC 40 MG/ML VIAL IV SCH (17:20)
[2018-10-24] MEDS: HYDROCODONE/ACETAMINOPHEN 10/325MG TABLET PO PRN ×2 (17:30→23:31)
[2018-10-24] MEDS: GUAIFENESIN 600MG ER TABLET PO SCH (17:31)
[2018-10-24] MEDS ORDERED: DEXTROSE 50% WATER 50ML SYRINGE IV PRN (17:45)
[2018-10-24] MEDS: BLOOD SUGAR DIAGNOSTIC STRIP TEST SCH ×2 (17:48→20:30)
[2018-10-24] MEDS: IPRATROPIUM/ALBUTEROL 0.5-3(2.5)MG/3ML NEB HHN SCH ×2 (17:57→20:40)
[2018-10-24 18:02] VITALS: BP 141/87
[2018-10-24] MEDS: INSULIN LISPRO 100 UNITS/ML SUBCUT SCH ×2 (18:28→20:36)
[2018-10-24 20:00] VITALS: BP 113/62
[2018-10-24] MEDS: FLUTICASONE PROPIONATE 50MCG/SPRAY BOTTLE BOTHNSTRLS SCH (20:36)
[2018-10-24] MEDS ORDERED: GUAIFENESIN 600MG ER TABLET PO SCH (21:00)
[2018-10-25] VITALS: BP 105/55
[2018-10-25] MEDS: IPRATROPIUM/ALBUTEROL 0.5-3(2.5)MG/3ML NEB HHN SCH ×7 (01:01→19:54)
[2018-10-25] MEDS: DIPHENHYDRAMINE 50MG/ML VIAL IV PRN ×4 (02:21→20:25)
[2018-10-25] MEDS: METHYLPREDNISOLONE SOD SUCC 40 MG/ML VIAL IV SCH ×3 (02:21→17:48)
[2018-10-25] MEDS: HYDROMORPHONE HCL/PF 2MG/ML CPJ IV PRN ×4 (03:36→21:35)
[2018-10-25 04:00] VITALS: BP 107/61
[2018-10-25] MEDS: HYDROCODONE/ACETAMINOPHEN 10/325MG TABLET PO PRN ×4 (05:31→22:10)
[2018-10-25 06:06] LABS: CLARITY URINE CLEAR (CLEAR); COLOR URINE YELLOW (YELLOW); KETONES URINE NEGATIVE (NEGATIVE); LEUKOCYTE ESTERASE URINE NEGATIVE (NEGATIVE); NITRITE URINE NEGATIVE (NEGATIVE); OCCULT BLOOD URINE 3+ (NEGATIVE); PROTEIN URINE NEGATIVE (NEGATIVE); SPECIFIC GRAVITY URINE 1.032 (1.005-1.030)
[2018-10-25 06:22] LABS: *AMPHETAMINES SCREEN URINE NEGATIVE (NEGATIVE); *BARBITURATES SCREEN URINE NEGATIVE (NEGATIVE); *BENZODIAZEPINES SCREEN URINE NEGATIVE (NEGATIVE); *COCAINE SCREEN URINE NEGATIVE (NEGATIVE); METHADONE URINE SCREEN NEGATIVE (NEGATIVE)
[2018-10-25 06:23] LABS: CANNABINOID URINE SCREEN NEGATIVE (NEGATIVE); OPIATES URINE SCREEN PRESUMTIVE POSITIVE (NEGATIVE); PHENCYCLIDINE URINE SCREEN NEGATIVE (NEGATIVE)
[2018-10-25] MEDS: BLOOD SUGAR DIAGNOSTIC STRIP TEST SCH ×4 (07:08→20:25)
[2018-10-25 08:00] VITALS: BP 109/61
[2018-10-25] MEDS: GUAIFENESIN 600MG ER TABLET PO SCH ×2 (08:20→20:25)
[2018-10-25] MEDS: FLUTICASONE PROPIONATE 50MCG/SPRAY BOTTLE BOTHNSTRLS SCH ×2 (08:20→20:25)
[2018-10-25] MEDS: INSULIN LISPRO 100 UNITS/ML SUBCUT SCH ×4 (08:38→20:33)
[2018-10-25] MEDS: ENOXAPARIN 40MG/0.4ML SYR SUBCUT SCH (08:39)
[2018-10-25] MEDS: AZITHROMYCIN 250 MG TABLET PO SCH (09:42)
[2018-10-25 10:49] LABS: BASOPHILS % 1.4 % (0.0-2.0); HEMATOCRIT. 31.1 % (36.0-48.0); HEMOGLOBIN. 9.4 g/dL (12.0-16.0); MEAN CORPUSCULAR HEMOGLOBIN 25.7 pg (28.0-32.0); MEAN CORPUSCULAR VOLUME 85.2 fL (81.0-99.0); MEAN PLATELET VOLUME 7.2 fl (7.4-10.4); MONOCYTES % 4.1 % (2.0-8.0); NEUTROPHILS % 86.5 % (40.0-76.0); PLATELET 551 x1000/uL (130-400); RED BLOOD CELL COUNT 3.65 mill/uL (4.2-5.4); RED CELL DISTRIBUTION WIDTH 19.5 % (11.6-14.6)
[2018-10-25 16:00] VITALS: BP 105/68
[2018-10-25 20:32] VITALS: BP 100/56
[2018-10-25] MEDS: INSULIN GLARGINE UD 100 UNITS/ML SYR SUBCUT SCH (21:34)
[2018-10-26] VITALS: BP 103/62
[2018-10-26] MEDS: IPRATROPIUM/ALBUTEROL 0.5-3(2.5)MG/3ML NEB HHN SCH ×5 (00:40→16:00)
[2018-10-26] MEDS: HYDROCODONE/ACETAMINOPHEN 10/325MG TABLET PO PRN ×6 (02:11→23:33)
[2018-10-26] MEDS: DIPHENHYDRAMINE 50MG/ML VIAL IV PRN ×5 (02:40→22:50)
[2018-10-26] MEDS: METHYLPREDNISOLONE SOD SUCC 40 MG/ML VIAL IV SCH ×3 (02:40→18:07)
[2018-10-26] MEDS: HYDROMORPHONE HCL/PF 2MG/ML CPJ IV PRN ×4 (03:41→21:45)
[2018-10-26 04:00] VITALS: BP 114/65
[2018-10-26] MEDS: BLOOD SUGAR DIAGNOSTIC STRIP TEST SCH ×4 (06:57→21:27)
[2018-10-26 08:00] VITALS: BP 113/62
[2018-10-26] MEDS: ENOXAPARIN 40MG/0.4ML SYR SUBCUT SCH (08:32)
[2018-10-26] MEDS: GUAIFENESIN 600MG ER TABLET PO SCH ×2 (08:39→21:42)
[2018-10-26] MEDS: AZITHROMYCIN 250 MG TABLET PO SCH (08:39)
[2018-10-26] MEDS: FLUTICASONE PROPIONATE 50MCG/SPRAY BOTTLE BOTHNSTRLS SCH ×2 (08:40→21:43)
[2018-10-26] MEDS: INSULIN LISPRO 100 UNITS/ML SUBCUT SCH ×4 (08:48→21:44)
[2018-10-26 09:46] LABS: BASOPHILS % 1.8 % (0.0-2.0); HEMATOCRIT. 30.4 % (36.0-48.0); HEMOGLOBIN. 9.2 g/dL (12.0-16.0); MEAN CORPUSCULAR HEMOGLOBIN 25.9 pg (28.0-32.0); MEAN CORPUSCULAR VOLUME 85.7 fL (81.0-99.0); MEAN PLATELET VOLUME 7.4 fl (7.4-10.4); MONOCYTES % 1.4 % (2.0-8.0); NEUTROPHILS % 88.8 % (40.0-76.0); PLATELET 561 x1000/uL (130-400); RED BLOOD CELL COUNT 3.54 mill/uL (4.2-5.4); RED CELL DISTRIBUTION WIDTH 19.8 % (11.6-14.6)
[2018-10-26 09:52] LABS: CHLORIDE 98 mEq/L (98-107)
[2018-10-26 12:00] VITALS: BP 113/61
[2018-10-26 16:00] VITALS: BP 115/63
[2018-10-26 20:00] VITALS: BP 115/63
[2018-10-26] MEDS: INSULIN GLARGINE UD 100 UNITS/ML SYR SUBCUT SCH (21:44)
[2018-10-27] VITALS: BP 120/63
[2018-10-27] MEDS: IPRATROPIUM/ALBUTEROL 0.5-3(2.5)MG/3ML NEB HHN SCH ×6 (02:05→19:47)
[2018-10-27] MEDS: HYDROCODONE/ACETAMINOPHEN 10/325MG TABLET PO PRN ×5 (03:35→19:49)
[2018-10-27 04:00] VITALS: BP 108/59
[2018-10-27] MEDS: METHYLPREDNISOLONE SOD SUCC 40 MG/ML VIAL IV SCH ×3 (04:03→16:54)
[2018-10-27] MEDS: HYDROMORPHONE HCL/PF 2MG/ML CPJ IV PRN ×4 (04:06→22:07)
[2018-10-27] MEDS: DIPHENHYDRAMINE 50MG/ML VIAL IV PRN ×4 (04:50→23:00)
[2018-10-27] MEDS: BLOOD SUGAR DIAGNOSTIC STRIP TEST SCH ×4 (06:32→21:10)
[2018-10-27 08:04] VITALS: BP 115/76
[2018-10-27] MEDS: AZITHROMYCIN 250 MG TABLET PO SCH (08:14)
[2018-10-27] MEDS: GUAIFENESIN 600MG ER TABLET PO SCH ×2 (08:14→21:10)
[2018-10-27] MEDS: FLUTICASONE PROPIONATE 50MCG/SPRAY BOTTLE BOTHNSTRLS SCH (08:15)
[2018-10-27] MEDS: INSULIN LISPRO 100 UNITS/ML SUBCUT SCH ×4 (08:31→21:19)
[2018-10-27] MEDS: ENOXAPARIN 40MG/0.4ML SYR SUBCUT SCH (09:00)
[2018-10-27 11:43] VITALS: BP 124/72
[2018-10-27 16:04] VITALS: BP 108/67
[2018-10-27 20:00] VITALS: BP 124/76
[2018-10-27] MEDS: INSULIN GLARGINE UD 100 UNITS/ML SYR SUBCUT SCH (22:08)
[2018-10-28] VITALS: BP 120/65
[2018-10-28 00:40] LABS: HEMATOCRIT. 33.9 % (36.0-48.0); HEMOGLOBIN. 10.2 g/dL (12.0-16.0); MEAN CORPUSCULAR HEMOGLOBIN 25.9 pg (28.0-32.0); MEAN CORPUSCULAR VOLUME 86.1 fL (81.0-99.0); MEAN PLATELET VOLUME 7.4 fl (7.4-10.4); PLATELET 647 x1000/uL (130-400); RED BLOOD CELL COUNT 3.94 mill/uL (4.2-5.4); RED CELL DISTRIBUTION WIDTH 19.5 % (11.6-14.6)
[2018-10-28 01:06] LABS: CHLORIDE 96 mEq/L (98-107)
[2018-10-28] MEDS: METHYLPREDNISOLONE SOD SUCC 40 MG/ML VIAL IV SCH ×2 (01:43→08:03)
[2018-10-28] MEDS: HYDROCODONE/ACETAMINOPHEN 10/325MG TABLET PO PRN ×2 (01:50→06:16)
[2018-10-28 04:00] VITALS: BP 118/67
[2018-10-28] MEDS: DIPHENHYDRAMINE 50MG/ML VIAL IV PRN ×3 (04:07→10:21)
[2018-10-28] MEDS: HYDROMORPHONE HCL/PF 2MG/ML CPJ IV PRN ×2 (04:18→10:13)
[2018-10-28] MEDS: IPRATROPIUM/ALBUTEROL 0.5-3(2.5)MG/3ML NEB HHN SCH ×4 (04:25→11:59)
[2018-10-28] MEDS: BLOOD SUGAR DIAGNOSTIC STRIP TEST SCH ×2 (06:27→12:20)
[2018-10-28 07:26] LABS: PLATELET ESTIMATE INCREASED
[2018-10-28] MEDS: INSULIN LISPRO 100 UNITS/ML SUBCUT SCH ×2 (07:50→13:57)
[2018-10-28 08:00] VITALS: BP 110/81
[2018-10-28] MEDS: GUAIFENESIN 600MG ER TABLET PO SCH (08:03)
[2018-10-28] MEDS: AZITHROMYCIN 250 MG TABLET PO SCH (08:03)
[2018-10-28] MEDS: ENOXAPARIN 40MG/0.4ML SYR SUBCUT SCH (08:04)
[2018-10-28] MEDS ORDERED: BENZONATATE 100MG CAPSULE PO PRN (08:15)
[2018-10-28] MEDS ORDERED: AZIT250T12 PO (11:12)
[2018-10-28 11:19] VITALS: BP 110/78
[2018-10-28] MEDS: HYDROCODONE/ACETAMINOPHEN 5/325MG TABLET PO PRN ×2 (11:36→13:58)
[2018-10-28 12:00] VITALS: BP 144/67
[2018-10-28 13:58] VITALS: BP 144/67
== END 2018-10-28 15:45 | disposition home or self-care (01) | DRG 133 ==
LOC: ER 08:32 → 6WST 11:50 → ENRESERV 12:38
PROVIDERS: ADMIT Internal Medicine; ATTEND Internal Medicine
DX: J96.20 Acute and chronic respiratory failure, unspecified whether with hypoxia or hypercapnia (principal); I27.21 Secondary pulmonary arterial hypertension; E44.0 Moderate protein-calorie malnutrition; Z99.81 Dependence on supplemental oxygen; E11.65 Type 2 diabetes mellitus with hyperglycemia; J43.0 Unilateral pulmonary emphysema [MacLeod's syndrome]; W18.30XA Fall on same level, unspecified, initial encounter; D64.9 Anemia, unspecified; E87.6 Hypokalemia; J31.0 Chronic rhinitis; L30.9 Dermatitis, unspecified; F17.200 Nicotine dependence, unspecified, uncomplicated; M54.30 Sciatica, unspecified side; I10 Essential (primary) hypertension; I25.10 Atherosclerotic heart disease of native coronary artery without angina pectoris; T38.0X5A Adverse effect of glucocorticoids and synthetic analogues, initial encounter; Z79.51 Long term (current) use of inhaled steroids; Z79.899 Other long term (current) drug therapy; Z87.891 Personal history of nicotine dependence; Z88.0 Allergy status to penicillin; Z01.419 Encounter for gynecological examination (general) (routine) without abnormal findings; Z88.9 Allergy status to unspecified drugs, medicaments and biological substances; Z85.53 Personal history of malignant neoplasm of renal pelvis; Z68.20 Body mass index [BMI] 20.0-20.9, adult; J44.1 Chronic obstructive pulmonary disease with (acute) exacerbation
CPT/HCPCS: 36415; 71045; 72170; 80048; 80305; 82962; 84484; 87804; 99291; C1893; J1170; J1200; J1650; J1815; J2920; J7512; J7620; Q0163

== ENCOUNTER 2018-11-22 09:50 | Inpatient (IN) | payer MEDICAID ==
[~2018-11-22] VITALS: Ht 167.6 cm; Wt 49.0 kg
[~2018-11-22 09:50] MED LIST changes: +AZIT250T12 PO
[2018-11-22] MEDS ORDERED: IPRATROPIUM/ALBUTEROL 0.5-3(2.5)MG/3ML NEB HHN ONE ×2 (11:15→13:30)
[2018-11-22] MEDS ORDERED: KETOROLAC 30MG/ML VIAL IV ONE (11:15)
[2018-11-22] MEDS ORDERED: METHYLPREDNISOLONE SOD SUCC 125 MG/2 ML VIAL IV ONE (11:15)
[2018-11-22] MEDS ORDERED: LIDOCAINE HCL 1% 20ML VIAL (Pyxis) INJ ONE (12:03)
[2018-11-22] MEDS ORDERED: ONDANSETRON HCL 4MG/2ML INJ IV ONE (12:30)
[2018-11-22] MEDS ORDERED: MORPHINE SULFATE 4 MG/ML CPJ (NOT FOR IM USE) IV ONE (12:30)
[2018-11-22] MEDS ORDERED: LEVOFLOXACIN 750MG PREMIX 150 ML IV ONE (13:15)
[2018-11-22 13:20] LABS: HEMATOCRIT. 36.6 % (36.0-48.0); HEMOGLOBIN. 11.3 g/dL (12.0-16.0); MEAN CORPUSCULAR HEMOGLOBIN 26.9 pg (28.0-32.0); MEAN CORPUSCULAR VOLUME 86.6 fL (81.0-99.0); PLATELET 558 x1000/uL (130-400); RED BLOOD CELL COUNT 4.22 mill/uL (4.2-5.4); RED CELL DISTRIBUTION WIDTH 18.2 % (11.6-14.6)
[2018-11-22 13:21] LABS: CHLORIDE 99 mEq/L (98-107)
[2018-11-22 13:23] LABS: PROTHROMBIN TIME 10.5 sec (9.1-11.1)
[2018-11-22] MEDS ORDERED: LIDOCAINE HCL/PF 1% 2ML VIAL ONE (13:38)
[2018-11-22] MEDS ORDERED: DIPHENHYDRAMINE 50MG/ML VIAL IV ONE (13:45)
[2018-11-22] MEDS ORDERED: SODIUM CHLORIDE 0.9% 1,000 ML IV ONE (13:45)
[2018-11-22 13:50] LABS: BG BASE EXCESS 4.3 mmol/L (-2.0-2.0); BG CARBOXYHEMOGLOBIN 1.6 % (0.5-1.5); BG DEOXYHEMOGLOBIN 7.4 % (0.0-5.0); BG FRACTION INSPIRED OXYGEN 48; BG HCO3 ACT 30.7 mmol/L (22.0-26.0); BG METHEMOGLOBIN 0.4 % (0.0-1.5); BG OXYGEN SATURATION 92.4 % (92.0-98.5); BG OXYHEMOGLOBIN 90.6 % (94.0-97.0); BG PCO2 53.9 mmHg (35.0-45.0); BG PH 7.373 (7.350-7.450); BG PO2 65.2 mmHg (75.0-100.0); BG SAMPLE SITE LEFT BRACHIAL; BG TOTAL HEMOGLOBIN 12.4 g/dL (12.0-18.0); BG VENT MODE MASK - SIMPLE
[2018-11-22 13:50] LABS: PLATELET ESTIMATE INCREASED
[2018-11-22] MEDS ORDERED: IOHEXOL-300 100 ML BOTTLE ONE (15:04)
[2018-11-22] MEDS ORDERED: CYCLOBENZAPRINE 10MG TABLET PO PRN (16:15)
[2018-11-22] MEDS ORDERED: IPRATROPIUM/ALBUTEROL 0.5-3(2.5)MG/3ML NEB HHN PRN (16:15)
[2018-11-22] MEDS ORDERED: POTASSIUM CHLORIDE 20MEQ TABLET SR PO ONE (16:30)
[2018-11-22] MEDS: DIPHENHYDRAMINE 50MG/ML VIAL IV PRN (17:46)
[2018-11-22] MEDS: HYDROCODONE/ACETAMINOPHEN 10/325MG TABLET PO PRN (17:46)
[2018-11-22] MEDS ORDERED: ACETAMINOPHEN 325MG TABLET PO PRN (18:15)
[2018-11-22] MEDS ORDERED: DIPHENHYDRAMINE 50MG/ML VIAL IV PRN (18:15)
[2018-11-22] MEDS ORDERED: ONDANSETRON HCL 4MG/2ML INJ IV PRN (18:15)
[2018-11-22] MEDS ORDERED: GUAIFENESIN 200MG/10ML SUGAR FREE UDC PO PRN (18:15)
[2018-11-22] MEDS ORDERED: CLONIDINE 0.1MG TABLET PO PRN (18:15)
[2018-11-22] MEDS ORDERED: NA PHOS,M-B/NA PHOS,DI-BA ENEMA 118ML PR PRN (18:15)
[2018-11-22] MEDS ORDERED: IPRATROPIUM/ALBUTEROL 0.5-3(2.5)MG/3ML NEB INH PRN (18:15)
[2018-11-22] MEDS ORDERED: MAGNESIUM/ALUMINUM HYDROXIDE/SIMETHICONE 30ML UDC PO PRN (18:15)
[2018-11-22] MEDS ORDERED: LORAZEPAM 2MG/ML CPJ IV PRN (18:15)
[2018-11-22] MEDS ORDERED: METHYLPREDNISOLONE SOD SUCC 125 MG/2 ML VIAL IV SCH (18:15)
[2018-11-22] MEDS ORDERED: DOCUSATE SODIUM 100MG CAPSULE PO PRN (18:15)
[2018-11-22] MEDS ORDERED: METHYLPREDNISOLONE SOD SUCC 40 MG/ML VIAL IV NR (19:30)
[2018-11-22 21:00] LABS: CHLORIDE 100 mEq/L (98-107)
[2018-11-22] MEDS: HYDROCODONE/ACETAMINOPHEN 5/325MG TABLET PO PRN (21:19)
[2018-11-22 23:30] VITALS: BP 112/70
[2018-11-23] VITALS: BP 112/76
[2018-11-23] MEDS: GUAIFENESIN 600MG ER TABLET PO SCH ×3 (01:30→20:36)
[2018-11-23] MEDS: AZITHROMYCIN 500 MG TABLET PO SCH ×2 (01:30→20:36)
[2018-11-23] MEDS: METHYLPREDNISOLONE SOD SUCC 40 MG/ML VIAL IV SCH ×4 (01:30→23:37)
[2018-11-23] MEDS: ENOXAPARIN 40MG/0.4ML SYR SUBCUT SCH ×3 (01:31→20:40)
[2018-11-23] MEDS: DIPHENHYDRAMINE 50MG/ML VIAL IV PRN ×6 (01:44→22:23)
[2018-11-23] MEDS: HYDROCODONE/ACETAMINOPHEN 10/325MG TABLET PO PRN ×5 (01:53→20:37)
[2018-11-23] MEDS ORDERED: DEXTROSE 50% WATER 50ML SYRINGE IV PRN (02:15)
[2018-11-23 04:00] VITALS: BP 140/75
[2018-11-23] MEDS: BLOOD SUGAR DIAGNOSTIC STRIP TEST SCH ×4 (06:56→20:39)
[2018-11-23] MEDS: INSULIN LISPRO 100 UNITS/ML SUBCUT SCH ×4 (07:12→20:39)
[2018-11-23] MEDS: MORPHINE SULFATE 4 MG/ML CPJ (NOT FOR IM USE) IV PRN (07:50)
[2018-11-23 08:00] VITALS: BP 124/74
[2018-11-23] MEDS ORDERED: AZITHROMYCIN 250 MG TABLET PO SCH (09:00)
[2018-11-23 09:41] LABS: HEMATOCRIT. 34.2 % (36.0-48.0); HEMOGLOBIN. 10.5 g/dL (12.0-16.0); MEAN CORPUSCULAR HEMOGLOBIN 26.9 pg (28.0-32.0); MEAN CORPUSCULAR VOLUME 87.3 fL (81.0-99.0); MEAN PLATELET VOLUME 7.1 fl (7.4-10.4); PLATELET 501 x1000/uL (130-400); RED BLOOD CELL COUNT 3.91 mill/uL (4.2-5.4); RED CELL DISTRIBUTION WIDTH 18.1 % (11.6-14.6)
[2018-11-23 09:50] LABS: CHLORIDE 99 mEq/L (98-107)
[2018-11-23 09:57] LABS: LDL CHOLESTEROL 79 mg/dL (5-100)
[2018-11-23 09:59] LABS: HDL CHOLESTEROL 77 mg/dL (40-59); T4 FREE 0.84 ng/dL (0.76-1.46)
[2018-11-23] MEDS: ASPIRIN 81MG EC TABLET PO SCH (10:13)
[2018-11-23 12:00] VITALS: BP 120/76
[2018-11-23] MEDS: IPRATROPIUM/ALBUTEROL 0.5-3(2.5)MG/3ML NEB HHN SCH ×4 (12:11→23:58)
[2018-11-23 13:43] LABS: PLATELET ESTIMATE INCREASED
[2018-11-23] MEDS ORDERED: LEVOFLOXACIN 500MG PREMIX 100 ML IV SCH ×2 (15:00→17:00)
[2018-11-23] MEDS: CARISOPRODOL 350 MG TABLET PO PRN ×2 (15:32→23:37)
[2018-11-23 16:00] VITALS: BP 125/71
[2018-11-23 20:00] VITALS: BP 119/77
[2018-11-23] MEDS: FLUTICASONE PROPIONATE 50MCG/SPRAY BOTTLE BOTHNSTRLS SCH (20:37)
[2018-11-23] MEDS: ACETYLCYSTEINE 100MG/ML 10% VIAL 4ML INH SCH (23:58)
[2018-11-24] VITALS: BP 106/69
[2018-11-24] MEDS: IPRATROPIUM/ALBUTEROL 0.5-3(2.5)MG/3ML NEB HHN SCH ×7 (01:28→21:20)
[2018-11-24] MEDS: DIPHENHYDRAMINE 50MG/ML VIAL IV PRN ×5 (02:46→20:19)
[2018-11-24 04:00] VITALS: BP 115/72
[2018-11-24] MEDS: HYDROCODONE/ACETAMINOPHEN 10/325MG TABLET PO PRN ×5 (05:46→23:15)
[2018-11-24] MEDS: INSULIN LISPRO 100 UNITS/ML SUBCUT SCH ×4 (06:35→20:36)
[2018-11-24] MEDS: BLOOD SUGAR DIAGNOSTIC STRIP TEST SCH ×4 (06:38→21:00)
[2018-11-24 07:09] LABS: HEMATOCRIT. 34.9 % (36.0-48.0); HEMOGLOBIN. 10.7 g/dL (12.0-16.0); MEAN CORPUSCULAR HEMOGLOBIN 26.7 pg (28.0-32.0); MEAN CORPUSCULAR VOLUME 86.9 fL (81.0-99.0); MEAN PLATELET VOLUME 7.3 fl (7.4-10.4); PLATELET 526 x1000/uL (130-400); RED BLOOD CELL COUNT 4.02 mill/uL (4.2-5.4); RED CELL DISTRIBUTION WIDTH 17.6 % (11.6-14.6)
[2018-11-24 07:11] LABS: CHLORIDE 97 mEq/L (98-107)
[2018-11-24] MEDS: GUAIFENESIN 600MG ER TABLET PO SCH ×2 (08:19→20:35)
[2018-11-24] MEDS: METHYLPREDNISOLONE SOD SUCC 40 MG/ML VIAL IV SCH ×2 (08:19→16:08)
[2018-11-24 08:22] VITALS: BP 109/66
[2018-11-24] MEDS: ASPIRIN 81MG EC TABLET PO SCH (08:24)
[2018-11-24] MEDS: HYDROCODONE/ACETAMINOPHEN 5/325MG TABLET PO PRN (08:24)
[2018-11-24] MEDS: FLUTICASONE PROPIONATE 50MCG/SPRAY BOTTLE BOTHNSTRLS SCH ×3 (08:24→21:00)
[2018-11-24] MEDS: ACETYLCYSTEINE 100MG/ML 10% VIAL 4ML INH SCH ×2 (11:55→16:48)
[2018-11-24 12:23] VITALS: BP 99/59
[2018-11-24] MEDS ORDERED: INSULIN LISPRO 100 UNITS/ML SUBCUT NR (13:00)
[2018-11-24 13:36] LABS: PLATELET ESTIMATE INCREASED
[2018-11-24 16:09] VITALS: BP 147/74
[2018-11-24] MEDS: CARISOPRODOL 350 MG TABLET PO PRN (17:46)
[2018-11-24 20:00] VITALS: BP 125/75
[2018-11-24] MEDS: AZITHROMYCIN 500 MG TABLET PO SCH (20:35)
[2018-11-24] MEDS: ENOXAPARIN 40MG/0.4ML SYR SUBCUT SCH (20:35)
[2018-11-24] MEDS: MORPHINE SULFATE 4 MG/ML CPJ (NOT FOR IM USE) IV PRN (20:47)
[2018-11-24] MEDS ORDERED: LEVOFLOXACIN 750MG PREMIX 150 ML IV SCH (21:00)
[2018-11-25] VITALS: BP 111/73
[2018-11-25] MEDS: METHYLPREDNISOLONE SOD SUCC 40 MG/ML VIAL IV SCH ×2 (00:09→08:32)
[2018-11-25] MEDS: DIPHENHYDRAMINE 50MG/ML VIAL IV PRN ×5 (00:19→20:31)
[2018-11-25] MEDS: IPRATROPIUM/ALBUTEROL 0.5-3(2.5)MG/3ML NEB HHN SCH ×5 (01:30→21:19)
[2018-11-25] MEDS: ACETYLCYSTEINE 100MG/ML 10% VIAL 4ML INH SCH ×3 (01:31→16:02)
[2018-11-25 04:00] VITALS: BP_SYST 100; BP_SYST 113; BP_DIAS 61; BP_DIAS 71
[2018-11-25] MEDS: HYDROCODONE/ACETAMINOPHEN 10/325MG TABLET PO PRN ×3 (04:22→22:25)
[2018-11-25] MEDS: BLOOD SUGAR DIAGNOSTIC STRIP TEST SCH ×4 (07:32→20:38)
[2018-11-25] MEDS: INSULIN LISPRO 100 UNITS/ML SUBCUT SCH ×4 (07:35→21:12)
[2018-11-25 08:00] VITALS: BP 116/72
[2018-11-25] MEDS: ASPIRIN 81MG EC TABLET PO SCH (08:32)
[2018-11-25] MEDS: GUAIFENESIN 600MG ER TABLET PO SCH ×2 (08:32→20:31)
[2018-11-25] MEDS: MORPHINE SULFATE 4 MG/ML CPJ (NOT FOR IM USE) IV PRN ×3 (08:41→20:32)
[2018-11-25] MEDS: FLUTICASONE PROPIONATE 50MCG/SPRAY BOTTLE BOTHNSTRLS SCH ×2 (08:44→20:38)
[2018-11-25] MEDS: CARISOPRODOL 350 MG TABLET PO PRN (10:17)
[2018-11-25] MEDS: HYDROCODONE/ACETAMINOPHEN 5/325MG TABLET PO PRN (11:48)
[2018-11-25 12:04] VITALS: BP 105/71
[2018-11-25 16:14] VITALS: BP 124/80
[2018-11-25] MEDS: PREDNISONE 20MG TABLET PO SCH (18:42)
[2018-11-25 20:00] VITALS: BP 117/71
[2018-11-25] MEDS: ENOXAPARIN 40MG/0.4ML SYR SUBCUT SCH (20:30)
[2018-11-26] VITALS: BP 119/73
[2018-11-26] MEDS: DIPHENHYDRAMINE 50MG/ML VIAL IV PRN ×4 (00:34→12:36)
[2018-11-26] MEDS: MORPHINE SULFATE 4 MG/ML CPJ (NOT FOR IM USE) IV PRN ×3 (00:34→08:38)
[2018-11-26] MEDS: HYDROCODONE/ACETAMINOPHEN 10/325MG TABLET PO PRN ×3 (02:45→12:22)
[2018-11-26 04:00] VITALS: BP 120/80
[2018-11-26] MEDS: IPRATROPIUM/ALBUTEROL 0.5-3(2.5)MG/3ML NEB HHN SCH ×3 (04:27→12:47)
[2018-11-26] MEDS: BLOOD SUGAR DIAGNOSTIC STRIP TEST SCH ×2 (06:50→12:17)
[2018-11-26] MEDS: PREDNISONE 20MG TABLET PO SCH (06:52)
[2018-11-26] MEDS: INSULIN LISPRO 100 UNITS/ML SUBCUT SCH ×2 (06:53→12:24)
[2018-11-26 08:00] VITALS: BP 121/76
[2018-11-26] MEDS: ASPIRIN 81MG EC TABLET PO SCH (08:13)
[2018-11-26] MEDS: GUAIFENESIN 600MG ER TABLET PO SCH (08:13)
[2018-11-26] MEDS: FLUTICASONE PROPIONATE 50MCG/SPRAY BOTTLE BOTHNSTRLS SCH ×2 (08:33→08:40)
[2018-11-26 09:44] VITALS: BP 121/76
[2018-11-26 12:00] VITALS: BP_SYST 119; BP_SYST 136; BP_DIAS 73; BP_DIAS 74
[2018-11-26 12:22] VITALS: BP 121/76
== END 2018-11-26 13:50 | disposition home or self-care (01) | DRG 140 ==
LOC: ER 10:03 → 5WST 14:14 → EDBEDREQTM 14:17 → EDBEDREQ 14:17 → ENRESERV 21:38 → 5WST 11-23 02:50
PROVIDERS: ADMIT Internal Medicine; ATTEND Internal Medicine
PROC: 02HV33Z Insertion of Infusion Device into Superior Vena Cava, Percutaneous Approach (ICD-10-PCS; principal; 2018-11-22)
PROC: B548ZZA Ultrasonography of Superior Vena Cava, Guidance (ICD-10-PCS; 2018-11-22)
DX: J44.0 Chronic obstructive pulmonary disease with (acute) lower respiratory infection (principal); J96.21 Acute and chronic respiratory failure with hypoxia; J18.9 Pneumonia, unspecified organism; E44.0 Moderate protein-calorie malnutrition; Z99.81 Dependence on supplemental oxygen; E11.65 Type 2 diabetes mellitus with hyperglycemia; F11.20 Opioid dependence, uncomplicated; J44.1 Chronic obstructive pulmonary disease with (acute) exacerbation; D64.9 Anemia, unspecified; E87.6 Hypokalemia; I10 Essential (primary) hypertension; I25.10 Atherosclerotic heart disease of native coronary artery without angina pectoris; R19.00 Intra-abdominal and pelvic swelling, mass and lump, unspecified site; J45.909 Unspecified asthma, uncomplicated; M54.30 Sciatica, unspecified side; T38.0X5A Adverse effect of glucocorticoids and synthetic analogues, initial encounter; Z79.84 Long term (current) use of oral hypoglycemic drugs; Z79.899 Other long term (current) drug therapy; Z88.6 Allergy status to analgesic agent; Z88.8 Allergy status to other drugs, medicaments and biological substances; Z88.0 Allergy status to penicillin; I25.2 Old myocardial infarction; Z68.1 Body mass index [BMI] 19.9 or less, adult
CPT/HCPCS: 36415; 36569; 36600; 71045; 74177; 76937; 80048; 80061; 82375; 82805; 82962; 83735; 83880; 84439; 84443; 84484; 87804; 93005; 94640; 96365; 96375; 99285; C1725; C1893; J1200; J1650; J1815; J1885; J1956; J2270; J2405; J2920; J2930; J3490; J7030; J7512; J7608; J7620; Q9967

== ENCOUNTER 2018-12-06 15:35 | Inpatient (IN) | payer MEDICAID ==
[~2018-12-06] VITALS: Ht 167.6 cm; Wt 51.7 kg
[2018-12-06] MEDS ORDERED: ONDANSETRON HCL 4MG/2ML INJ IV STA (16:10)
[2018-12-06] MEDS ORDERED: IPRATROPIUM BROMIDE (0.02%) 0.5MG/2.5ML NEB HHN STA (16:10)
[2018-12-06] MEDS ORDERED: ALBUTEROL (0.083%) 2.5MG/3ML NEB HHN STA (16:10)
[2018-12-06] MEDS ORDERED: LEVOFLOXACIN 750MG PREMIX 150 ML IV ONE (16:15)
[2018-12-06] MEDS ORDERED: SODIUM CHLORIDE 0.9% 1000ML BAG (SEPSIS BOLUS) IV ONE (16:15)
[2018-12-06] MEDS ORDERED: HYDROCODONE/ACETAMINOPHEN 5/325MG TABLET PO ONE (18:30)
[2018-12-06 18:34] LABS: BASOPHILS % 0.4 % (0.0-2.0); EOSINOPHILS % 0.2 % (0.0-5.0); HEMATOCRIT. 37.2 % (36.0-48.0); HEMOGLOBIN. 11.6 g/dL (12.0-16.0); LYMPHOCYTES % 8.3 % (20.0-50.0); MEAN CORPUSCULAR HEMOGLOBIN 27.5 pg (28.0-32.0); MEAN CORPUSCULAR VOLUME 88.4 fL (81.0-99.0); NEUTROPHILS % 83.1 % (40.0-76.0); PLATELET 461 x1000/uL (130-400); RED BLOOD CELL COUNT 4.21 mill/uL (4.2-5.4); RED CELL DISTRIBUTION WIDTH 17.7 % (11.6-14.6)
[2018-12-06 18:35] LABS: PROTHROMBIN TIME 9.9 sec (9.1-11.1)
[2018-12-06 18:36] LABS: CHLORIDE 98 mEq/L (98-107)
[2018-12-06 19:40] LABS: CLARITY URINE CLEAR (CLEAR); COLOR URINE YELLOW (YELLOW); KETONES URINE NEGATIVE (NEGATIVE); LEUKOCYTE ESTERASE URINE NEGATIVE (NEGATIVE); NITRITE URINE NEGATIVE (NEGATIVE); OCCULT BLOOD URINE NEGATIVE (NEGATIVE); PROTEIN URINE NEGATIVE (NEGATIVE); SPECIFIC GRAVITY URINE 1.038 (1.005-1.030); UROBILINOGEN URINE 0.2 E.U./dL (0.2-1.0)
[2018-12-06] MEDS ORDERED: DIPHENHYDRAMINE 50MG/ML VIAL IV PRN (20:30)
[2018-12-06] MEDS: HYDROCODONE/ACETAMINOPHEN 5/325MG TABLET PO PRN (22:51)
[2018-12-07] VITALS: BP 137/75
[2018-12-07] MEDS ORDERED: ALBU05 IH (00:33)
[2018-12-07] MEDS ORDERED: FAMO-135 PO (00:33)
[2018-12-07] MEDS ORDERED: ASPI-1079 PO (00:33)
[2018-12-07] MEDS ORDERED: MORP30TA66 PO (00:33)
[2018-12-07] MEDS ORDERED: HYDR-4067 PO (00:33)
[2018-12-07] MEDS ORDERED: DIPH25CA83 PO (00:33)
[2018-12-07] MEDS ORDERED: IPRATROPIUM/ALBUTEROL 0.5-3(2.5)MG/3ML NEB HHN PRN (00:45)
[2018-12-07] MEDS ORDERED: ACETAMINOPHEN 325MG TABLET PO PRN (00:45)
[2018-12-07] MEDS ORDERED: MORPHINE SULFATE 4 MG/ML CPJ (NOT FOR IM USE) IV PRN (00:45)
[2018-12-07] MEDS ORDERED: DIPHENHYDRAMINE 50MG CAPSULE PO PRN (00:45)
[2018-12-07] MEDS: IPRATROPIUM/ALBUTEROL 0.5-3(2.5)MG/3ML NEB HHN SCH ×3 (03:41→21:11)
[2018-12-07 04:00] VITALS: BP 107/66
[2018-12-07] MEDS: HYDROCODONE/ACETAMINOPHEN 5/325MG TABLET PO PRN ×4 (04:34→20:43)
[2018-12-07] MEDS: DIPHENHYDRAMINE 50MG/ML VIAL IV PRN ×3 (06:38→18:50)
[2018-12-07 07:22] LABS: BASOPHILS % 0.3 % (0.0-2.0); EOSINOPHILS % 0.8 % (0.0-5.0); HEMATOCRIT. 31.8 % (36.0-48.0); HEMOGLOBIN. 9.7 g/dL (12.0-16.0); LYMPHOCYTES % 11.5 % (20.0-50.0); MEAN CORPUSCULAR HEMOGLOBIN 27.4 pg (28.0-32.0); MEAN CORPUSCULAR VOLUME 89.4 fL (81.0-99.0); MEAN PLATELET VOLUME 6.7 fl (7.4-10.4); MONOCYTES % 8.1 % (2.0-8.0); NEUTROPHILS % 79.3 % (40.0-76.0); PLATELET 455 x1000/uL (130-400); RED BLOOD CELL COUNT 3.55 mill/uL (4.2-5.4); RED CELL DISTRIBUTION WIDTH 17.5 % (11.6-14.6)
[2018-12-07 07:24] LABS: CHLORIDE 102 mEq/L (98-107)
[2018-12-07] MEDS ORDERED: DEXTROSE 50% WATER 50ML SYRINGE IV PRN (07:45)
[2018-12-07] MEDS ORDERED: GUAIFENESIN-DM 200MG-20MG/10ML UDC PO PRN (07:45)
[2018-12-07] MEDS ORDERED: LEVOFLOXACIN 500MG PREMIX 100 ML IV SCH ×2 (09:00→20:00)
[2018-12-07] MEDS: ASPIRIN 81MG TABLET PO SCH (09:04)
[2018-12-07] MEDS: METHYLPREDNISOLONE SOD SUCC 40 MG/ML VIAL IV SCH ×3 (09:05→22:16)
[2018-12-07] MEDS: FAMOTIDINE 20MG TABLET PO SCH ×2 (09:05→18:50)
[2018-12-07] MEDS: INSULIN LISPRO 100 UNITS/ML SUBCUT SCH ×5 (09:08→21:44)
[2018-12-07] MEDS: BLOOD SUGAR DIAGNOSTIC STRIP TEST SCH ×3 (12:47→21:29)
[2018-12-07] MEDS: ACETYLCYSTEINE 100MG/ML 10% VIAL 4ML INH SCH (14:00)
[2018-12-07 14:27] LABS: *AMPHETAMINES SCREEN URINE NEGATIVE (NEGATIVE); *BARBITURATES SCREEN URINE NEGATIVE (NEGATIVE); *BENZODIAZEPINES SCREEN URINE NEGATIVE (NEGATIVE); *COCAINE SCREEN URINE NEGATIVE (NEGATIVE)
[2018-12-07 14:28] LABS: CANNABINOID URINE SCREEN NEGATIVE (NEGATIVE); METHADONE URINE SCREEN NEGATIVE (NEGATIVE); OPIATES URINE SCREEN PRESUMTIVE POSITIVE (NEGATIVE); PHENCYCLIDINE URINE SCREEN NEGATIVE (NEGATIVE)
[2018-12-07] MEDS ORDERED: ACETYLCYSTEINE 100MG/ML 10% VIAL 4ML INH SCH (16:00)
[2018-12-07] MEDS: MORPHINE SULFATE 4 MG/ML CPJ (NOT FOR IM USE) IV PRN ×2 (16:41→22:49)
[2018-12-07 20:00] VITALS: BP 109/68
[2018-12-07] MEDS ORDERED: GUAIFENESIN 600MG ER TABLET PO SCH (21:00)
[2018-12-07] MEDS: INSULIN GLARGINE UD 100 UNITS/ML SYR SUBCUT SCH (21:43)
[2018-12-07] MEDS: MONTELUKAST SODIUM 10MG TABLET PO SCH (21:44)
[2018-12-07] MEDS: GUAIFENESIN 600MG ER TABLET PO SCH (21:58)
[2018-12-08] VITALS: BP 105/64
[2018-12-08] MEDS: ACETYLCYSTEINE 100MG/ML 10% VIAL 4ML INH SCH ×4 (00:35→21:35)
[2018-12-08] MEDS: IPRATROPIUM/ALBUTEROL 0.5-3(2.5)MG/3ML NEB HHN SCH ×6 (00:35→20:15)
[2018-12-08] MEDS: DIPHENHYDRAMINE 50MG/ML VIAL IV PRN ×4 (01:02→19:45)
[2018-12-08] MEDS: HYDROCODONE/ACETAMINOPHEN 5/325MG TABLET PO PRN ×5 (01:17→21:02)
[2018-12-08 04:00] VITALS: BP 100/63
[2018-12-08] MEDS: MORPHINE SULFATE 4 MG/ML CPJ (NOT FOR IM USE) IV PRN ×3 (04:57→18:38)
[2018-12-08] MEDS: METHYLPREDNISOLONE SOD SUCC 40 MG/ML VIAL IV SCH ×3 (06:01→21:34)
[2018-12-08] MEDS: BLOOD SUGAR DIAGNOSTIC STRIP TEST SCH ×4 (07:33→20:58)
[2018-12-08] MEDS: INSULIN LISPRO 100 UNITS/ML SUBCUT SCH ×7 (07:40→21:00)
[2018-12-08 08:00] VITALS: BP 105/67
[2018-12-08] MEDS: FAMOTIDINE 20MG TABLET PO SCH ×2 (09:30→17:12)
[2018-12-08] MEDS: INSULIN GLARGINE UD 100 UNITS/ML SYR SUBCUT SCH ×2 (09:37→21:35)
[2018-12-08] MEDS: GUAIFENESIN 600MG ER TABLET PO SCH ×2 (09:37→20:58)
[2018-12-08] MEDS: ASPIRIN 81MG TABLET PO SCH (09:37)
[2018-12-08 10:56] LABS: HEMOGLOBIN. 9.9 g/dL (12.0-16.0); MEAN CORPUSCULAR HEMOGLOBIN 27.4 pg (28.0-32.0); MEAN CORPUSCULAR VOLUME 88.9 fL (81.0-99.0); MEAN PLATELET VOLUME 6.8 fl (7.4-10.4); PLATELET 455 x1000/uL (130-400)
[2018-12-08 11:09] LABS: CHLORIDE 93 mEq/L (98-107)
[2018-12-08 12:00] VITALS: BP 142/76
[2018-12-08] MEDS: ENOXAPARIN 40MG/0.4ML SYR SUBCUT SCH (13:36)
[2018-12-08] MEDS: GLIPIZIDE 5MG TABLET PO SCH ×2 (13:39→17:11)
[2018-12-08 13:46] LABS: PLATELET ESTIMATE INCREASED
[2018-12-08 20:00] VITALS: BP 125/83
[2018-12-08] MEDS: MONTELUKAST SODIUM 10MG TABLET PO SCH (20:58)
[2018-12-08] MEDS ORDERED: INSULIN LISPRO 100 UNITS/ML SUBCUT SCH (21:15)
[2018-12-09] VITALS: BP 109/69
[2018-12-09] MEDS: HYDROCODONE/ACETAMINOPHEN 5/325MG TABLET PO PRN ×3 (01:00→08:57)
[2018-12-09] MEDS: IPRATROPIUM/ALBUTEROL 0.5-3(2.5)MG/3ML NEB HHN SCH ×4 (01:04→21:35)
[2018-12-09] MEDS: ACETYLCYSTEINE 100MG/ML 10% VIAL 4ML INH SCH (01:05)
[2018-12-09] MEDS: DIPHENHYDRAMINE 50MG/ML VIAL IV PRN ×4 (01:45→20:13)
[2018-12-09] MEDS: MORPHINE SULFATE 4 MG/ML CPJ (NOT FOR IM USE) IV PRN (03:15)
[2018-12-09 04:00] VITALS: BP 110/71
[2018-12-09] MEDS: METHYLPREDNISOLONE SOD SUCC 40 MG/ML VIAL IV SCH ×3 (06:30→21:04)
[2018-12-09] MEDS: BLOOD SUGAR DIAGNOSTIC STRIP TEST SCH ×4 (07:40→21:00)
[2018-12-09 08:00] VITALS: BP 106/68
[2018-12-09] MEDS: GLIPIZIDE 5MG TABLET PO SCH (08:39)
[2018-12-09] MEDS: ASPIRIN 81MG TABLET PO SCH (08:39)
[2018-12-09] MEDS: FAMOTIDINE 20MG TABLET PO SCH (08:39)
[2018-12-09] MEDS: GUAIFENESIN 600MG ER TABLET PO SCH ×2 (08:39→21:03)
[2018-12-09] MEDS: INSULIN LISPRO 100 UNITS/ML SUBCUT SCH ×7 (08:41→22:59)
[2018-12-09] MEDS: ENOXAPARIN 40MG/0.4ML SYR SUBCUT SCH (08:59)
[2018-12-09] MEDS: INSULIN GLARGINE UD 100 UNITS/ML SYR SUBCUT SCH ×2 (10:17→22:58)
[2018-12-09 12:00] VITALS: BP 102/70
[2018-12-09] MEDS: HYDROCODONE/ACETAMINOPHEN 10/325MG TABLET PO PRN ×3 (12:50→21:18)
[2018-12-09 16:00] VITALS: BP 100/68
[2018-12-09] MEDS: CARISOPRODOL 350 MG TABLET PO PRN (17:19)
[2018-12-09] MEDS: GLIPIZIDE 10MG TABLET PO SCH (17:20)
[2018-12-09 20:00] VITALS: BP 114/77
[2018-12-09] MEDS: MONTELUKAST SODIUM 10MG TABLET PO SCH (21:03)
[2018-12-10] VITALS: BP 110/60
[2018-12-10] MEDS: HYDROCODONE/ACETAMINOPHEN 10/325MG TABLET PO PRN ×6 (01:09→21:49)
[2018-12-10] MEDS: ACETYLCYSTEINE 100MG/ML 10% VIAL 4ML INH SCH ×3 (01:40→15:23)
[2018-12-10] MEDS: IPRATROPIUM/ALBUTEROL 0.5-3(2.5)MG/3ML NEB HHN SCH ×6 (01:40→20:30)
[2018-12-10] MEDS: DIPHENHYDRAMINE 50MG/ML VIAL IV PRN ×4 (02:15→20:43)
[2018-12-10 04:00] VITALS: BP 102/59
[2018-12-10] MEDS: BLOOD SUGAR DIAGNOSTIC STRIP TEST SCH ×4 (07:53→21:36)
[2018-12-10 08:00] VITALS: BP 106/78
[2018-12-10] MEDS: GLIPIZIDE 10MG TABLET PO SCH ×2 (08:42→18:37)
[2018-12-10] MEDS: GUAIFENESIN 600MG ER TABLET PO SCH ×2 (08:42→21:48)
[2018-12-10] MEDS: ASPIRIN 81MG TABLET PO SCH (08:42)
[2018-12-10] MEDS: FAMOTIDINE 20MG TABLET PO SCH (08:42)
[2018-12-10] MEDS: METHYLPREDNISOLONE SOD SUCC 40 MG/ML VIAL IV SCH ×2 (08:43→21:48)
[2018-12-10] MEDS: INSULIN LISPRO 100 UNITS/ML SUBCUT SCH ×7 (08:44→21:00)
[2018-12-10] MEDS: ENOXAPARIN 40MG/0.4ML SYR SUBCUT SCH (08:45)
[2018-12-10] MEDS: INSULIN GLARGINE UD 100 UNITS/ML SYR SUBCUT SCH ×2 (09:41→21:36)
[2018-12-10] MEDS: CARISOPRODOL 350 MG TABLET PO PRN ×2 (11:58→19:43)
[2018-12-10 12:00] VITALS: BP 127/77
[2018-12-10 16:00] VITALS: BP 105/61
[2018-12-10 20:00] VITALS: BP 106/60
[2018-12-10] MEDS: MONTELUKAST SODIUM 10MG TABLET PO SCH (21:48)
[2018-12-11] VITALS: BP 119/63
[2018-12-11] MEDS: IPRATROPIUM/ALBUTEROL 0.5-3(2.5)MG/3ML NEB HHN SCH ×6 (00:14→20:00)
[2018-12-11] MEDS: ACETYLCYSTEINE 100MG/ML 10% VIAL 4ML INH SCH ×2 (00:20→23:40)
[2018-12-11] MEDS: HYDROCODONE/ACETAMINOPHEN 10/325MG TABLET PO PRN ×6 (01:34→22:23)
[2018-12-11] MEDS: DIPHENHYDRAMINE 50MG/ML VIAL IV PRN ×4 (02:22→20:32)
[2018-12-11] MEDS: CARISOPRODOL 350 MG TABLET PO PRN ×4 (02:42→20:32)
[2018-12-11 04:00] VITALS: BP 135/66
[2018-12-11] MEDS: BLOOD SUGAR DIAGNOSTIC STRIP TEST SCH ×4 (05:34→20:33)
[2018-12-11] MEDS: INSULIN LISPRO 100 UNITS/ML SUBCUT SCH ×7 (05:47→20:32)
[2018-12-11 07:14] LABS: CHLORIDE 98 mEq/L (98-107)
[2018-12-11 07:24] LABS: HEMATOCRIT. 32.1 % (36.0-48.0); HEMOGLOBIN. 9.8 g/dL (12.0-16.0); MEAN CORPUSCULAR HEMOGLOBIN 27.5 pg (28.0-32.0); MEAN CORPUSCULAR VOLUME 89.7 fL (81.0-99.0); MEAN PLATELET VOLUME 6.7 fl (7.4-10.4); PLATELET 405 x1000/uL (130-400); RED BLOOD CELL COUNT 3.58 mill/uL (4.2-5.4); RED CELL DISTRIBUTION WIDTH 18.1 % (11.6-14.6)
[2018-12-11 08:00] VITALS: BP 109/67
[2018-12-11] MEDS: FAMOTIDINE 20MG TABLET PO SCH (08:44)
[2018-12-11] MEDS: ASPIRIN 81MG TABLET PO SCH (08:44)
[2018-12-11] MEDS: GLIPIZIDE 10MG TABLET PO SCH ×2 (08:44→18:19)
[2018-12-11] MEDS: GUAIFENESIN 600MG ER TABLET PO SCH ×2 (08:44→20:32)
[2018-12-11] MEDS: METHYLPREDNISOLONE SOD SUCC 40 MG/ML VIAL IV SCH ×2 (08:45→20:31)
[2018-12-11] MEDS: ENOXAPARIN 40MG/0.4ML SYR SUBCUT SCH (08:45)
[2018-12-11] MEDS: INSULIN GLARGINE UD 100 UNITS/ML SYR SUBCUT SCH ×2 (10:03→22:23)
[2018-12-11 10:55] LABS: PLATELET ESTIMATE SLIGHTLY INCREASED
[2018-12-11 12:00] VITALS: BP 125/78
[2018-12-11 16:00] VITALS: BP 119/85
[2018-12-11 20:00] VITALS: BP 110/56
[2018-12-11] MEDS: MONTELUKAST SODIUM 10MG TABLET PO SCH (20:32)
[2018-12-12] VITALS (8 sets, daily range): BP systolic 97–127; BP diastolic 57–76
[2018-12-12] MEDS: CARISOPRODOL 350 MG TABLET PO PRN ×3 (02:24→14:41)
[2018-12-12] MEDS: HYDROCODONE/ACETAMINOPHEN 10/325MG TABLET PO PRN ×3 (02:24→10:39)
[2018-12-12] MEDS: DIPHENHYDRAMINE 50MG/ML VIAL IV PRN ×3 (02:24→14:42)
[2018-12-12] MEDS: IPRATROPIUM/ALBUTEROL 0.5-3(2.5)MG/3ML NEB HHN SCH (04:25)
[2018-12-12] MEDS: BLOOD SUGAR DIAGNOSTIC STRIP TEST SCH ×2 (05:40→13:39)
[2018-12-12] MEDS: GLIPIZIDE 10MG TABLET PO SCH (08:32)
[2018-12-12] MEDS: INSULIN LISPRO 100 UNITS/ML SUBCUT SCH ×4 (08:47→13:10)
[2018-12-12] MEDS ORDERED: PREDNISONE 20MG TABLET PO SCH (09:00)
[2018-12-12] MEDS: ENOXAPARIN 40MG/0.4ML SYR SUBCUT SCH (09:00)
[2018-12-12] MEDS: ASPIRIN 81MG TABLET PO SCH (09:01)
[2018-12-12] MEDS: GUAIFENESIN 600MG ER TABLET PO SCH (09:01)
[2018-12-12] MEDS: FAMOTIDINE 20MG TABLET PO SCH (09:01)
[2018-12-12] MEDS: INSULIN GLARGINE UD 100 UNITS/ML SYR SUBCUT SCH (10:50)
== END 2018-12-12 17:24 | disposition home or self-care (01) | DRG 140 ==
LOC: ER 16:59 → 7WST 18:48 → EDBEDREQ 18:53 → EDBEDREQSVC 18:53 → EDBEDREQTM 18:53 → ENRESERV 23:05
PROVIDERS: ADMIT Internal Medicine; ATTEND Internal Medicine
PROC: B548ZZA Ultrasonography of Superior Vena Cava, Guidance (ICD-10-PCS; 2018-12-04)
PROC: 02HV33Z Insertion of Infusion Device into Superior Vena Cava, Percutaneous Approach (ICD-10-PCS; principal; 2018-12-07)
PROC: B5181ZA Fluoroscopy of Superior Vena Cava using Low Osmolar Contrast, Guidance (ICD-10-PCS; 2018-12-07)
DX: J44.1 Chronic obstructive pulmonary disease with (acute) exacerbation (principal); J96.21 Acute and chronic respiratory failure with hypoxia; R65.11 Systemic inflammatory response syndrome (SIRS) of non-infectious origin with acute organ dysfunction; E44.0 Moderate protein-calorie malnutrition; E11.65 Type 2 diabetes mellitus with hyperglycemia; F11.20 Opioid dependence, uncomplicated; J45.901 Unspecified asthma with (acute) exacerbation; Z99.81 Dependence on supplemental oxygen; D64.9 Anemia, unspecified; Z60.2 Problems related to living alone; M94.0 Chondrocostal junction syndrome [Tietze]; E87.6 Hypokalemia; I10 Essential (primary) hypertension; I25.10 Atherosclerotic heart disease of native coronary artery without angina pectoris; L30.9 Dermatitis, unspecified; M54.30 Sciatica, unspecified side; T38.0X5A Adverse effect of glucocorticoids and synthetic analogues, initial encounter; Y92.89 Other specified places as the place of occurrence of the external cause; Z76.5 Malingerer [conscious simulation]; Z87.891 Personal history of nicotine dependence; Z88.6 Allergy status to analgesic agent; Z88.0 Allergy status to penicillin; Z88.8 Allergy status to other drugs, medicaments and biological substances; Z79.2 Long term (current) use of antibiotics; Z79.84 Long term (current) use of oral hypoglycemic drugs; Z79.899 Other long term (current) drug therapy; I25.2 Old myocardial infarction; Z68.1 Body mass index [BMI] 19.9 or less, adult
CPT/HCPCS: 36415; 36569; 71045; 76937; 77001; 80048; 80305; 82962; 83605; 84145; 84484; 93005; 94640; 96365; 96366; 96375; 99291; C1725; J1200; J1650; J1815; J1956; J2270; J2405; J2920; J7512; J7608; J7611; J7620; Q0163